=== PATIENT | female | born 1970 | race Caucasian/White ===

== ENCOUNTER 2016-11-14 18:00 | Emergency (ER) | payer OTHER ==
[2016-11-14 18:20] VITALS: BP 106/44
--- NOTE | 2016-11-14 18:58 | UC ---
Lower Extremity/Ankle HPI - HPI Summary HPI Summary: works in [employer] and injured left lateral ankle today at work---able to weight bear but pain is getting worse through out the day - History of Current Complaint Chief Complaint: UCLowerExtremity Stated Complaint: ANKLE INJURY WC Time Seen by Provider: 11/14/16 18:57 Hx Obtained From: Patient Hx Last Menstrual Period: October 07 ?: No Onset/Duration: Sudden Onset, Lasting Hours, Still Present, Worse Since - getting worse throughout the day Severity Initially: Mild Severity Currently: Moderate Pain Intensity: 4 Pain Scale Used: 0-10 Numeric Aggravating Factor(s): Standing, Ambulation Alleviating Factor(s): Rest, Elevation Able to Bear Weight: Yes Related History: Occupational Injury - Allergies/Home Medications Allergies/Adverse Reactions: Allergies Allergy/AdvReac Type Severity Reaction Status Date / Time No Known Allergies Allergy Verified 02/12/16 18:00 Home Medications: Home Medications Omeprazole CAP* [Prilosec CAP* 20 MG] 20 mg PO BEDTIME 11/14/16 [History Confirmed 11/14/16] PMH/Surg Hx/FS Hx/Imm Hx Previously Healthy: No Endocrine History: Diabetes Cardiovascular History: Hypertension GI/ History: Gastroesophageal Reflux Psychological History: Depression - Surgical History Surgical History: Yes Surgery Procedure, Year, and Place: Tubal Ligation 1999. LEFT KNEE SCOPING 2015 , RIGHT CARPAL TUNNEL - Family History Known Family History: Positive: Hypertension, Diabetes - Social History Occupation: Employed Full-time Lives: With Family Alcohol Use: Rare Alcohol Amount: 1 X EVERY 3-4 MONTHS Substance Use Type: None Smoking Status (MU): Former Smoker Type: Cigarettes Amount Used/How Often: 1/2 PPD When Did the Patient Quit Smoking/Using Tobacco: 02/2015 Review of Systems Constitutional: Negative Skin: Negative Eyes: Negative ENT: Negative Respiratory: Negative Cardiovascular: Negative Gastrointestinal: Negative Genitourinary: Negative Motor: Negative Neurovascular: Negative Musculoskeletal: Arthralgia - pain anterior to left lateral ankle Neurological: Negative Psychological: Negative Is Patient Immunocompromised?: No All Other Systems Reviewed And Are Negative: Yes Physical Exam Triage Information Reviewed: Yes Appearance: Well-Appearing, No Pain Distress, Well-Nourished Vital Signs: Initial Vital Signs Temp 99.4 F 11/14/16 18:14 Pulse 84 11/14/16 18:14 Resp 16 11/14/16 18:14 BP 106/44 11/14/16 18:14 Pulse Ox 97 11/14/16 18:14 Vital Signs Reviewed: Yes Eye Exam: Normal Eyes: Positive: Conjunctiva Clear ENT Exam: Normal ENT: Positive: Normal ENT inspection, Hearing grossly normal. Negative: Nasal congestion, Nasal drainage, Trismus, Muffled/hoarse voice Dental Exam: Normal Neck exam: Normal Neck: Positive: Supple, Nontender Respiratory Exam: Normal Respiratory: Positive: Chest non-tender, No respiratory distress, No accessory muscle use Cardiovascular Exam: Normal Cardiovascular: Positive: RRR, Pulses Normal, Brisk Capillary Refill Musculoskeletal Exam: Normal Musculoskeletal: Positive: Strength Intact, ROM Intact, No Edema Neurological Exam: Normal Neurological: Positive: Alert, Muscle Tone Normal Psychological Exam: Normal Skin Exam: Normal Diagnostics - Radiology No standard instances Xray Interpretation: No Acute Changes Radiology Interpretation Completed By: ED Physician Re-Evaluation - Re-Evaluation First Eval Change: Improved - Cam boot applied Lower Extremity Course/Dx - Course Course Of Treatment: rice, cam, ibuprofen follow with ortho, off work this week - Differential Dx/Diagnosis Differential Diagnosis/HQI/PQRI: Contusion, Fracture (Closed), Sprain, Strain Provider Diagnoses: Lateral left ankle sprain Discharge - Discharge Plan Condition: Stable Disposition: HOME Patient Education Materials: Ibuprofen (By mouth), RICE Therapy (ED), Ankle Strain (ED) Forms: *School Release Referrals: Sanjana Foster MD [Primary Care Provider] - Jeremiah Ward MD [Medical Doctor] - 3 Days
--- NOTE | 2016-11-14 19:40 | RAD ---
INDICATION: Left ankle injury. TECHNIQUE: 3 views of the left ankle were obtained. FINDINGS: Soft tissue swelling is noted along the anterolateral aspect of the ankle. No fracture is seen. Joint spaces appear maintained. IMPRESSION: SOFT TISSUE SWELLING, NO FRACTURE IS SEEN.
== END 2016-11-14 19:48 | disposition home or self-care (01) ==
LOC: UCEAST 18:00
DX: S93.402A Sprain of unspecified ligament of left ankle, initial encounter (principal); Y92.89 Other specified places as the place of occurrence of the external cause; X58.XXXA Exposure to other specified factors, initial encounter; E11.9 Type 2 diabetes mellitus without complications; I10 Essential (primary) hypertension; K21.9 Gastro-esophageal reflux disease without esophagitis; F32.9 Major depressive disorder, single episode, unspecified; Z87.891 Personal history of nicotine dependence
CPT/HCPCS: 99211; G0463

== ENCOUNTER 2017-02-05 00:02 | Emergency (ER) | payer BC ==
--- NOTE | 2017-02-05 00:47 | ED ---
GI/ HPI - HPI Summary HPI Summary: 46F presents with vaginal bleeding for past three days that has increased in amount today. She has history of fibriods that is seeing her obgyn about so has history of excessive vaginal bleeding. She states the bleeding has decreased since started hormone therapy 3 months ago. She states she layed down for a couple hours and got up and went to the bathroom and passed a couple large clots which has never happened before so she got concerned. She denies any lightheadedness or palpitations. She states she has mild cramping abdominal pain. She denies any dysuria or flank pain. She denies any history of anemia. She denies any nausea or vomiting. She denies any chance of . She also states she developed a migraine that is resolving with Excedrin. She states this is her typically migraine. - History of Current Complaint Chief Complaint: EDAbdPain Time Seen by Provider: 02/05/17 00:26 Stated Complaint: ABD PAIN Hx Last Menstrual Period: October 07 Pain Intensity: 3 - Allergy/Home Medications Allergies/Adverse Reactions: Allergies Allergy/AdvReac Type Severity Reaction Status Date / Time No Known Allergies Allergy Verified 02/05/17 00:07 PMH/Surg Hx/FS Hx/Imm Hx Endocrine/Hematology History: Reports: Hx Diabetes Denies: Hx Thyroid Disease Cardiovascular History: Reports: Hx Hypertension - PT. STATES CONTROLLED ON MEDS Denies: Hx Pacemaker/ICD Respiratory History: Denies: Hx Asthma, Hx Chronic Obstructive Pulmonary Disease (COPD) GI History: Reports: Hx Gastroesophageal Reflux Disease - WITH MOTRIN ONLY Denies: Hx Ulcer History: Reports: Other Problems/Disorders - Incontinence Denies: Hx Dialysis, Hx Renal Disease Musculoskeletal History: Reports: Hx Arthritis - BACK AND KNEES Sensory History: Reports: Hx Contacts or Glasses - READING Denies: Hx Hearing Aid Opthamlomology History: Reports: Hx Contacts or Glasses - READING Psychiatric History: Reports: Hx Anxiety Denies: Hx Panic Disorder - Cancer History Hx Chemotherapy: No Hx Radiation Therapy: No - Surgical History Surgery Procedure, Year, and Place: Tubal Ligation 1999. LEFT KNEE SCOPING 2016. RIGHT CARPAL TUNNEL Hx Anesthesia Reactions: No Infectious Disease History: No Infectious Disease History: Denies: Hx Hepatitis, Hx Human Immunodeficiency Virus (HIV), Traveled Outside the [place] in Last 30 Days - Family History Known Family History: Positive: Hypertension, Diabetes - Social History Alcohol Use: Rare Alcohol Amount: 1 X EVERY 3-4 MONTHS Substance Use Type: Reports: None Hx Tobacco Use: Yes Smoking Status (MU): Former Smoker Type: Cigarettes Amount Used/How Often: 1/2 PPD Review of Systems Negative: Fever Negative: Chest Pain Negative: Shortness Of Breath Positive: Other - vaginal bleeding Positive: Headache All Other Systems Reviewed And Are Negative: Yes Physical Exam Triage Information Reviewed: Yes Vital Signs On Initial Exam: Initial Vitals Temp Pulse Resp BP Pulse Ox 97.0 F 82 14 144/81 99 02/05/17 00:04 02/05/17 00:04 02/05/17 00:04 02/05/17 00:04 02/05/17 00:04 Vital Signs Reviewed: Yes Appearance: Positive: Well-Appearing, No Pain Distress, Well-Nourished Skin: Positive: Warm, Dry Head/Face: Positive: Normal Head/Face Inspection Eyes: Positive: Normal, EOMI, LIZETTE, Conjunctiva Clear ENT: Positive: Normal ENT inspection, Pharynx normal, TMs normal Respiratory/Lung Sounds: Positive: Clear to Auscultation, Breath Sounds Present Cardiovascular: Positive: Normal, RRR Abdomen Description: Positive: Nontender, Soft Bowel Sounds: Positive: Present Musculoskeletal: Positive: Normal Neurological: Positive: Sensory/Motor Intact, Alert, Oriented to Person Place, Time, CN Intact II-III Psychiatric: Positive: Normal - [place] Coma Scale Coma Scale Total: 15 Diagnostics - Vital Signs Vital Signs Temp Pulse Resp BP Pulse Ox 02/05/17 00:04 97.0 F 82 14 144/81 99 - Laboratory Lab Statement: Any lab studies that have been ordered have been reviewed, and results considered in the medical decision making process. GIGU Course/Dx - Course Course Of Treatment: 46F presents with vaginal bleeding for past three days that has increased in amount today. She has history of fibriods that is seeing her obgyn about so has history of excessive vaginal bleeding. She states the bleeding has decreased since started hormone therapy 3 months ago. She states she layed down for a couple hours and got up and went to the bathroom and passed a couple large clots which has never happened before so she got concerned. She denies any lightheadedness or palpitations. She states she has mild cramping abdominal pain. She denies any dysuria or flank pain. She denies any history of anemia. She denies any nausea or vomiting. She denies any chance of . She also states she developed a migraine that is resolving with Excedrin. She states this is her typically migraine. on exam normal neuro exam. nontender abdomen. normal vitals. reassured patient that clots are normal. discussed will not get any labs because no signs of blood loss. told to follow up with primary. patient understand and agrees with plan. - Diagnoses Differential Diagnoses - Female: Urinary Tract Infection, Other - dysfunctional uterine bleeding, fibroids Provider Diagnoses: Episode of heavy vaginal bleeding Discharge - Discharge Plan Condition: Good Disposition: HOME Patient Education Materials: Dysfunctional Uterine Bleeding (ED) Referrals: Sanjana Foster MD [Primary Care Provider] - Additional Instructions: Follow up with obgyn Return to ED if develop any signs of significant blood loss, or any new or worsening symptoms
[2017-02-05 00:50] VITALS: BP 142/81
== END 2017-02-05 01:00 | disposition home or self-care (01) ==
LOC: ED 00:02
DX: N93.9 Abnormal uterine and vaginal bleeding, unspecified (principal); R10.9 Unspecified abdominal pain; Z86.79 Personal history of other diseases of the circulatory system; R51 Headache; E11.9 Type 2 diabetes mellitus without complications; Z87.891 Personal history of nicotine dependence
CPT/HCPCS: 99282

== ENCOUNTER 2017-04-12 19:00 | Emergency (ER) | payer BC ==
--- OUTSIDE RECORDS SUMMARY | 2017-04-12 19:07 | XMS REPORT ---
:1970 External Reference #:[id number] Author Organization [facility] Address [address] [address] Phone [phone] Care Team Providers Name Role Phone Sanjana Foster MD Primary Care Physician Unavailable Payers Type Date Identification Numbers Payment Provider Subscriber Commercial Policy Number: [id number] [facility] Oriana Wilkinson PayID: [id number] [address] [place] [address] Workers Compensation Onset: 2012 Policy Number: State Insurance Oriana Wilkinson [id number] Fund [place]: [place] [address] [address] [place] [address] Workers Compensation Onset: 2011 Policy Number: State Insurance Oriana Wilkinson [id number] Fund PayID: [place] [address] [address] [place] [address] Workers Compensation Onset: 2016 PayID: [id number] Workers Oriana Wilkinson Compensation Problems Date Description Provider Status Onset: 03/17/2014 Essential hypertension Melchor Rendon M.D. Active Onset: 12/10/2015 Type 2 diabetes mellitus Prerna dAdison N.P. Active Onset: 03/17/2014 Anxiety Melchor Rendon M.D. Active Onset: 05/08/2014 Degeneration of lumbar intervertebral Hamzah Gonazlez M.D. Active disc Family History Date Family Member(s) Problem(s) Comments General Heart Disease General Diabetes General Breast Cancer General Hypertension : (age 68 Father due to Aspiration Years) pneumonia Father Hypertension Father Diabetes Father Heart Disease PTCA Father Gastroesophageal Reflux Disease (GERD) Mother Hypertension Mother Breast cancer (Age 48+/-) Age 68 Children 3 2 Sons 1 Daughter Siblings 3 3 Sisters - 1 with HTN and DM Social History Type Date Description Comments Marital Status Lives With Family Occupation [employer] ETOH Use Rarely consumes alcohol 1 - 2 per year Recreational Drug Use Denies Drug Use Smoking Patient is a former smoker Quit February 2015 Daily Caffeine Consumes on average 1 cup of regular coffee per day Exercise Type/Frequency Exercises sporadically Allergies, Adverse Reactions, Alerts Date Description Reaction Status Severity Comments 10/15/2013 NKDA active Medications Medication Date Status Form Strength Qnty SIG Indications Ordering Provider Blood Glucose 04/07 Active Kit W/Device 1unit test E11. Prerna Monitoring System /2017 s blood Varn, N.P. sugars once fasting and 2 hours after dinner meal Blood Glucose 04/07 Active Strips 100un test . Test its blood Varn, N.P. sugar fasting in in the morning and 2 hours after dinner meal Lancet Device 04/07 Active Misc 100un use when E11. its testing Varn, N.P. blood gluose bid Glipizide XL 12/08 Active Tablets ER 5mg 30tab one by 24HR s mouth Varn, N.P. every in the morning Omeprazole 02/[address] 20mg 30cap 1 by K202.28 s mouth Varn, N.P. every day Metformin HCL ER 12/09 Active Tablets ER 500mg 180ta Take 2 24HR bs Tablets Varn, N.P. By Mouth Every Day With Dinner Fluticasone 07/06 Active Suspension 50mcg/Act 16uni 2 sprays G56.01 ts each Varn, N.P. nostril daily as needed Oxybutynin 10/22 Active Tablets ER 10mg 30tab Take 1 N39.41 Prerna Chloride /2014 24HR s Tablet By Varn, N.P. Mouth Every Day Sertraline HCL 00/00 Active Tablets 100mg 90tab Take 1 Prerna /0000 s Tablet By Varn, N.P. Mouth Every Day Lisinopril 00/00 Active Tablets 30mg 90tab Take 1 Prerna /0000 s Tablet By Varn, N.P. Mouth Daily Coq-10 Active Capsules 150mg Unknown /0000 Biotin 00 Active Capsules 10mg Unknown /0000 Estroven + Energy Active Tablets Unknown Maximumstrength /0000 Tobramycin 03/30 Hx Solution 0.3% 5ml 1 drop in H10.89 each eye Varn, N.P. - every 06/07 4hours 7 days Augmentin 02/22 Hx Tablets 875-125mg 20tab one by J01.90 s mouth Varn, N.P. - every 12 03/04 hours ten days Tramadol 07/15 Hx Tablets 37.5-325m 30tab 1 -2 tabs Brittany Hydrochloride/Matt g s by mouth [place], taminophen - every 4-6 M.D. 08/18 hours needed pain Omeprazole 05/[address] 20mg 30cap 1 by K21.9 s mouth Varn, N.P. - every day 07/06 Amoxicillin/Clavu 02/25 Hx Tablets 875-125mg 20tab one J01. Prerna lanate Potassium s tablet by Varn, N.P. - mouth 03/07 twice daily for 10 days Fluconazole 02/25 Hx Tablets 150mg 3tabs one by J01.00 mouth Varn, N.P. - every 3 05/07 days 3 doses Fluticasone 02/25 Hx Suspension 50mcg/Act 16uni 2 sprays J01. Prerna Propionate ts each Varn, N.P. - nostril 03/11 daily needed Chantix 12/12 Hx Tablets 1mg 60tab 1 by F17.210 s mouth Varn, N.P. - once a Chantix Starting 10/22 Hx Tablets 0.5mg X 1tabs take as 305.1 Prerna 11 & directed Varn, N.P. - 1 mg X 42 (0.5 mg 12/05 by mouth daily x3 days, 0.5 mg twice a day x 4 days, then 1 mg twice a day up to three months) Cyclobenzaprine 06/23 Hx Tablets 10mg 45tab 1 by 724.2 Hamzah HCL /2014 s mouth [place], - twice a M.D. 07/19 day as needed spasm B6 Natural 03/17 Hx Tablets 100mg Rendon, - M.D. 04/03 Fish Oil 03/17 Hx Capsules 1000mg Rendon, - M.D. 05/07 Naproxen 03/17 Hx Tablets 500mg 30tab 1 tablet 724.5 Melchor s by mouth Rendon, - twice a M.D. 05/08 day foods as needed pain Cyclobenzaprine 03/17 Hx Tablets 5mg 30tab 1 tablet 724.5 Melchor HCL s by mouth Rendon, - three M.D. 05/08 times day as needed [id number]-[id number] Hx Chewtabs 1mg 1 PO Unknown /0000 Daily - 05/07 Tumeric Hx once a Unknown /0000 day - 11/11 Immunizations CPT Code Status Date Vaccine Reaction Lot # [id number] Given 12/08/2016 Influenza Virus Vaccine, No immediate [id number] Quadrivalent, Split, reaction..jh Preservative Free 16666 Given 11/12/2015 Influenza Virus Vaccine, no reaction noted ... [id number] [id number] Quadrivalent, Split, Preservative Free 82098 Given 07/07/2015 Tdap - [id number] Tetanus/Diptheria/Acellular Pertussis 43234 Given 12/12/2014 Influenza Virus Vaccine, [id number] Quadrivalent, Split, Preservative Free Vital Signs Date Vital Result Comment 04/12/2017 Height 69 inches 5'9" Weight 240.00 lb Heart Rate 67 /min BP Systolic 136 mmHg BP Diastolic 76 mmHg Respiratory Rate 19 /min Body Temperature 98.5 F Pain Level 10 BMI (Body Mass Index) 35.4 kg/m2 04/07/2017 Weight 238.00 lb Heart Rate 76 /min BP Systolic 116 mmHg BP Diastolic 72 mmHg O2 % BldC Oximetry 97 % 12/08/2016 Weight 230.75 lb Heart Rate 82 /min BP Systolic 108 mmHg BP Diastolic 68 mmHg Body Temperature 98.4 F O2 % BldC Oximetry 93 % 06/08/2016 Height 68.5 inches 5'8.50" Weight 223.00 lb Heart Rate 90 /min BP Systolic 104 mmHg BP Diastolic 62 mmHg Body Temperature 97.7 F O2 % BldC Oximetry 98 % BMI (Body Mass Index) 33.4 kg/m2 03/30/2016 Height 69 inches 5'9" Weight 225.00 lb Heart Rate 70 /min BP Systolic 104 mmHg BP Diastolic 62 mmHg Body Temperature 98.9 F O2 % BldC Oximetry 98 % BMI (Body Mass Index) 33.2 kg/m2 02/23/2016 Height 69 inches 5'9" Weight 221.00 lb Heart Rate 65 /min BP Systolic 100 mmHg BP Diastolic 62 mmHg Body Temperature 98.7 F O2 % BldC Oximetry 97 % BMI (Body Mass Index) 32.6 kg/m2 12/10/2015 Weight 224.00 lb Heart Rate 66 /min BP Systolic Sitting 120 mmHg BP Diastolic Sitting 76 mmHg Respiratory Rate 15 /min O2 % BldC Oximetry 98 % 11/12/2015 Height 69 inches 5'9" Weight 219.50 lb Heart Rate 75 /min BP Systolic 121 mmHg BP Diastolic 73 mmHg Body Temperature 99.0 F BMI (Body Mass Index) 32.4 kg/m2 08/20/2015 Height 69 inches 5'9" Weight 210.00 lb Heart Rate 60 /min Respiratory Rate 16 /min Pain Level 0 BMI (Body Mass Index) 31.0 kg/m2 07/30/2015 Height 69 inches 5'9" Weight 210.00 lb Body Temperature 98.1 F Pain Level 1 BMI (Body Mass Index) 31.0 kg/m2 07/16/2015 Height 69 inches 5'9" Weight 210.00 lb Heart Rate 60 /min BP Systolic Sitting 116 mmHg BP Diastolic Sitting 68 mmHg Respiratory Rate 16 /min Pain Level 5 BMI (Body Mass Index) 31.0 kg/m2 07/07/2015 Height 68 inches 5'8" Weight 223.00 lb Heart Rate 84 /min BP Systolic Sitting 122 mmHg BP Diastolic Sitting 76 mmHg Respiratory Rate 15 /min Body Temperature 98.3 F O2 % BldC Oximetry 98 % BMI (Body Mass Index) 33.9 kg/m2 05/08/2015 Height 68 inches 5'8" Weight 210.50 lb Heart Rate 68 /min BP Systolic Sitting 112 mmHg BP Diastolic Sitting 72 mmHg Body Temperature 99.0 F Pain Level 0 O2 % BldC Oximetry 97 % BMI (Body Mass Index) 32.0 kg/m2 02/25/2015 Heart Rate 85 /min BP Systolic Sitting 109 mmHg BP Diastolic Sitting 73 mmHg Body Temperature 98.9 F O2 % BldC Oximetry 96 % 02/06/2015 Weight 203.00 lb Heart Rate 74 /min BP Systolic Sitting 111 mmHg BP Diastolic Sitting 75 mmHg Body Temperature 98.2 F 12/12/2014 Weight 199.00 lb Heart Rate 63 /min BP Systolic Sitting 112 mmHg BP Diastolic Sitting 64 mmHg Body Temperature 98.4 F O2 % BldC Oximetry 98 % 10/22/2014 Weight 190.00 lb Heart Rate 65 /min BP Systolic Sitting 132 mmHg BP Diastolic Sitting 78 mmHg Body Temperature 98.4 F O2 % BldC Oximetry 97 % 07/24/2014 Height 69 inches 5'9" Weight 196.00 lb Heart Rate 84 /min BP Systolic Sitting 160 mmHg BP Diastolic Sitting 92 mmHg Pain Level 0 BMI (Body Mass Index) 28.9 kg/m2 06/23/2014 Height 69 inches 5'9" Weight 202.00 lb Heart Rate 78 /min BP Systolic Sitting 126 mmHg BP Diastolic Sitting 80 mmHg Pain Level 5 back BMI (Body Mass Index) 29.8 kg/m2 06/05/2014 Height 69 inches 5'9" Weight 205.00 lb Heart Rate 76 /min BP Systolic Sitting 122 mmHg BP Diastolic Sitting 78 mmHg Pain Level 2 back BMI (Body Mass Index) 30.3 kg/m2 05/08/2014 Height 69 inches 5'9" Weight 198.00 lb Heart Rate 76 /min BP Systolic Sitting 124 mmHg BP Diastolic Sitting 70 mmHg Pain Level 3 back BMI (Body Mass Index) 29.2 kg/m2 04/03/2014 Height 69 inches 5'9" Weight 194.38 lb Heart Rate 88 /min BP Systolic Sitting 118 mmHg BP Diastolic Sitting 60 mmHg Body Temperature 98.1 F O2 % BldC Oximetry 96 % BMI (Body Mass Index) 28.7 kg/m2 03/17/2014 Height 69 inches 5'9" Weight 194.50 lb Heart Rate 92 /min BP Systolic Sitting 124 mmHg BP Diastolic Sitting 72 mmHg Body Temperature 98.8 F BMI (Body Mass Index) 28.7 kg/m2 10/15/2013 Height 69 inches 5'9" Weight 190.00 lb Heart Rate 95 /min BP Systolic 121 mmHg BP Diastolic 77 mmHg BMI (Body Mass Index) 28.1 kg/m2 11/17/2011 Height 69 inches 5'9" Weight 186.00 lb Heart Rate 68 /min BP Systolic 137 mmHg BP Diastolic 90 mmHg BMI (Body Mass Index) 27.5 kg/m2 Results Test Date Test Result H/L Range Note Laboratory test 04/07/2017 Hemoglobin A1c 8.6 High 5-7 finding Laboratory test 12/08/2016 Hemoglobin A1c 7.3 High 5-7 finding Laboratory test 06/15/2016 Hemoglobin A1c 7.2 % High Less than 6.0 1 finding (Glyco HGB) Urine Microalbumin 06/15/2016 Urine Creatinine 138.01 mg/dL Random Ur Microalbumin (mg/L) < 15.0 mg/L Urine Microalbumin/Creatinine TNP ug/mg <31 2 CBC Auto Diff 06/15/2016 White Blood Count 6.0 10^3/uL 3.5-10.8 Red Blood Count 4.29 10^6/uL 4.0-5.4 Hemoglobin 12.4 g/dL 12.0-16.0 Hematocrit 37 % 35-47 Mean Corpuscular Volume 87 fL 80-97 Mean Corpuscular Hemoglobin 29 pg 27-31 Mean Corpuscular HGB Conc 33 g/dL 31-36 Red Cell Distribution Width 14 % 10.5-15 Platelet Count 292 10^3/uL 150-450 Mean Platelet Volume 9 um3 7.4-10.4 Abs Neutrophils 3.9 10^3/uL 1.5-7.7 Abs Lymphocytes 1.5 10^3/uL 1.0-4.8 Abs Monocytes 0.4 10^3/uL 0-0.8 Abs Eosinophils 0.1 10^3/uL 0-0.6 Abs Basophils 0.1 10^3/uL 0-0.2 Abs Nucleated RBC 0.01 10^3/uL Granulocyte % 65.2 % 38-83 Lymphocyte % 24.8 % Low 25-47 Monocyte % 7.1 % 1-9 Eosinophil % 1.9 % 0-6 Basophil % 1.0 % 0-2 Nucleated Red Blood Cells % 0.2 Laboratory test finding 02/23/2016 Hemoglobin A1c 6.5 5-7 Laboratory test finding 02/12/2016 CSF Glucose 75 mg/dL High 40-70 3, 4 CSF Protein 39 mg/dL 15-45 3, 5 CSF Culture & 02/12/2016 CSF Culture SEE RESULT BELOW 3, 6 Sensitivity Gram Stain Laboratory test 02/12/2016 Point of Care 152 mg/dL High 74-106 7 finding Glucose CSF Cell Count 02/12/2016 Body Fluid Source Cerebral Spinal 3 Body Fluid Appearance Clear 3 Body Fluid Color Colorless 3 CSF Tube # 4 3 Body Fluid Volume 1 mL 3 Body Fluid WBC 1 /mcL 3 Body Fluid RBC 1 /mcL 3 Body Fluid Comment (SEE NOTE) 3, 8 Body Fluid Lymph 100 % 3 Body Fluid Total Cells Counted 1 3 Fluid Reviewed By MD (SEE NOTE) 3, 9 Comp Metabolic Panel 02/12/2016 Sodium 137 mmol/L 133-145 Potassium 4.3 mmol/L 3.5-5.0 Chloride 102 mmol/L 101-111 Co2 Carbon Dioxide 27 mmol/L 22-32 Anion Gap 8 mmol/L 2-11 Glucose 155 mg/dL High 70-100 Blood Urea Nitrogen 17 mg/dL 6-24 Creatinine 0.89 mg/dL 0.51-0.95 BUN/Creatinine Ratio 19.1 8-20 Calcium 9.0 mg/dL 8.6-10.3 Total Protein 7.5 g/dL 6.4-8.9 Albumin 4.2 g/dL 3.2-5.2 Globulin 3.3 g/dL 2-4 Albumin/Globulin Ratio 1.3 1-3 Total Bilirubin 0.30 mg/dL 0.2-1.0 Alkaline Phosphatase 49 U/L 34-104 Alt 24 U/L 7-52 Ast 19 U/L 13-39 Egfr Non- 68.0 >60 Egfr 87.4 >60 10 CBC Auto Diff 02/12/2016 White Blood Count 12.3 10^3/uL High 3.5-10.8 Red Blood Count 4.04 10^6/uL 4.0-5.4 Hemoglobin 12.1 g/dL 12.0-16.0 Hematocrit 36 % 35-47 Mean Corpuscular Volume 89 fL 80-97 Mean Corpuscular Hemoglobin 30 pg 27-31 Mean Corpuscular HGB Conc 33 g/dL 31-36 Red Cell Distribution Width 13 % 10.5-15 Platelet Count 306 10^3/uL 150-450 Mean Platelet Volume 8 um3 7.4-10.4 Abs Neutrophils 10.5 10^3/uL High 1.5-7.7 Abs Lymphocytes 1.2 10^3/uL 1.0-4.8 Abs Monocytes 0.3 10^3/uL 0-0.8 Abs Eosinophils 0 10^3/uL 0-0.6 Abs Basophils 0.1 10^3/uL 0-0.2 Abs Nucleated RBC 0 10^3/uL Granulocyte % 86.0 % High 38-83 Lymphocyte % 10.1 % Low 25-47 Monocyte % 2.8 % 1-9 Eosinophil % 0.3 % 0-6 Basophil % 0.8 % 0-2 Nucleated Red Blood Cells % 0 Urinalysis Profile 02/12/2016 Urine Color Yellow Urine Appearance Cloudy Urine Specific [place] 1.026 1.010-1.030 Urine pH 7.0 5-9 Urine Urobilinogen Negative Negative Urine Ketones Negative Negative Urine Protein 1+(30 mg/dL) Negative Urine Leukocytes Trace Negative Urine Blood Negative Negative * * Negative 11 Urine Nitrite Negative Negative Urine Bilirubin Negative Negative Urine Glucose Negative Negative Urine White Blood Cell Trace(0-5/hpf) Absent Urine Red Blood Cell 2+(6-10/hpf) Absent Urine Bacteria Absent Absent Urine Squamous Epithelial Cell Present Absent Urine Culture And 02/12/2016 Urine Culture SEE RESULT 12 Sensitivities BELOW Laboratory test 12/07/2015 Hemoglobin A1c 7.0 % High Less than 13 finding (Glyco HGB) 6.0 Comp Metabolic Panel 11/19/2015 Sodium 136 mmol/L 133-145 Potassium 4.4 mmol/L 3.5-5.0 Chloride 105 mmol/L 101-111 Co2 Carbon Dioxide 25 mmol/L 22-32 Anion Gap 6 mmol/L 2-11 Glucose 118 mg/dL High 70-100 Blood Urea Nitrogen 19 mg/dL 6-24 Creatinine 0.84 mg/dL 0.51-0.95 BUN/Creatinine Ratio 22.6 High 8-20 Calcium 9.0 mg/dL 8.6-10.3 Total Protein 7.0 g/dL 6.4-8.9 Albumin 3.8 g/dL 3.2-5.2 Globulin 3.2 g/dL 2-4 Albumin/Globulin Ratio 1.2 1-3 Total Bilirubin 0.30 mg/dL 0.2-1.0 Alkaline Phosphatase 46 U/L 34-104 Alt 26 U/L 7-52 Ast 21 U/L 13-39 Egfr Non- 72.7 >60 Egfr 93.5 >60 14 Lipid Profile (Trig/Chol/HDL) 11/19/2015 Triglycerides 452 mg/dL 15 Cholesterol 190 mg/dL 16 HDL Cholesterol 29.8 mg/dL 17 LDL Cholesterol (SEE NOTE) mg/dL 18 Comp Metabolic Panel 10/08/2014 Sodium 137 mmol/L 133-145 Potassium 4.4 mmol/L 3.5-5.0 Chloride 107 mmol/L 101-111 Co2 Carbon Dioxide 24 mmol/L 22-32 Anion Gap 6 mmol/L 2-11 Glucose 102 mg/dL High 70-100 Blood Urea Nitrogen 19 mg/dL 6-24 Creatinine 0.77 mg/dL 0.51-0.95 BUN/Creatinine Ratio 24.7 High 8-20 Calcium 9.3 mg/dL 8.6-10.3 Total Protein 7.1 g/dL 6.4-8.9 Albumin 4.3 g/dL 3.2-5.2 Globulin 2.8 g/dL 2-4 Albumin/Globulin Ratio 1.5 1-3 Total Bilirubin 0.40 mg/dL 0.2-1.0 Alkaline Phosphatase 44 U/L 34-104 Alt 13 U/L 7-52 Ast 17 U/L 13-39 Egfr Non- 80.7 >60 Egfr 103.8 >60 19 Lipid Profile (Trig/Chol/HDL) 10/08/2014 Triglycerides 381 mg/dL 20 Cholesterol 185 mg/dL 21 HDL Cholesterol 36.1 mg/dL 22 LDL Cholesterol 73 mg/dL 23 CBC Auto Diff 03/18/2014 White Blood Count 7.3 10^3/uL 4.8-10.8 Red Blood Count 4.70 10^6/uL 4.0-5.4 Hemoglobin 14.6 g/dL 12.0-16.0 Hematocrit 44 % 35-47 Mean Corpuscular Volume 94 fL 80-97 Mean Corpuscular Hemoglobin 31 pg 27-31 Mean Corpuscular HGB Conc 33 g/dL 31-36 Red Cell Distribution Width 13 % 10.5-15 Platelet Count 264 10^3/uL 150-450 Mean Platelet Volume 9 um3 7.4-10.4 Abs Neutrophils 4.8 10^3/uL 1.5-7.7 Abs Lymphocytes 1.8 10^3/uL 1.0-4.8 Abs Monocytes 0.5 10^3/uL 0-0.8 Abs Eosinophils 0.2 10^3/uL 0-0.6 Abs Basophils 0 10^3/uL 0-0.2 Abs Nucleated RBC 0 10^3/uL Granulocyte % 65.5 % 38-83 Lymphocyte % 24.8 % Low 25-47 Monocyte % 7.0 % 1-9 Eosinophil % 2.1 % 0-6 Basophil % 0.6 % 0-2 Nucleated Red Blood Cells % 0 Lipid Profile (Trig/Chol/HDL) 03/18/2014 Triglycerides 227 mg/dL 24 Cholesterol 209 mg/dL 25 HDL Cholesterol 30.0 mg/dL 26 LDL Cholesterol 134 mg/dL 27 Laboratory test finding 03/18/2014 TSH (Thyroid Stimulating 1.49 IU/mL 0.34-5.60 Horm) Urinalysis Profile 03/18/2014 Urine Color Yellow Urine Appearance Clear Urine Specific [place] 1.011 1.010-1.030 Urine pH 6.0 5-9 Urine Urobilinogen Negative Negative Urine Ketones Negative Negative Urine Protein Negative Negative Urine Leukocytes Negative Negative Urine Blood Negative Negative Urine Nitrite Negative Negative Urine Bilirubin Negative Negative Urine Glucose Negative Negative Comp Metabolic Panel 03/18/2014 Sodium 135 mmol/L 133-145 Potassium 3.9 mmol/L 3.5-5.0 Chloride 101 mmol/L 101-111 Co2 Carbon Dioxide 29 mmol/L 22-32 Anion Gap 5 mmol/L 2-11 Glucose 99 mg/dL 70-100 Blood Urea Nitrogen 18 mg/dL 6-24 Creatinine 0.94 mg/dL 0.51-0.95 BUN/Creatinine Ratio 19.1 8-20 Calcium 9.4 mg/dL 8.6-10.3 Total Protein 7.5 g/dL 6.4-8.9 Albumin 4.5 g/dL 3.2-5.2 Globulin 3.0 g/dL 2-4 Albumin/Globulin Ratio 1.5 1-3 Total Bilirubin 0.60 mg/dL 0.2-1.0 Alkaline Phosphatase 44 U/L 34-104 Alt 12 U/L 7-52 Ast 17 U/L 13-39 Egfr Non- 64.1 >60 Egfr 82.4 >60 28 1 Therapeutic target for the treatment of diabetes Mellitus patients is <7% HBA1C, and in selective patients <6.0%.Please refer to [place] [employer] Diabetic care guidelines for further information. 2 Unable to calculate due to low microalbumin 3 Comment: Tube 2 4 Comment: Tube 2 5 Comment: Tube 2 6 SEE RESULT BELOW Name: ORIANA WILKINSON : [address]: Rm Graham MD Acct: [id number] Unit: [id number] AGE: 45 Location: ED Re02/12/16 SEX: F Status: DEP ER SPEC: [id number] OLIVIA: 02/12/[address]: Rm Graham MD REQ: [id number] RECD: 02/12/16 STATUS: MARIAH THAO DR: Prerna Addison [employer] _ SOURCE: CSF SPDESC: ORDERED: CSF Cult/GS COMMENTS: Comment: Tube 3 Procedure Result Reported Site CSF Gram Stain Final 02/13/16- 827 ML No Polys Observed No Organisms Seen Preparation By Cytospin Smear CSF Culture Final 02/16/16- 52 ML No Growth Day 4 * ML - MAIN LAB ([facility]) . END OF REPORT * ML=Testing performed at Main Lab DEPARTMENT OF PATHOLOGY, [address] [place] [address] Talib García M.D. Director [facility] # [id number] 7 Filemaker Developer: [id number] CHAR COLBY 8 Differential performed on concentrated smear. 9 No evidence of an acute inflammatory response. No evidence of malignancy. Reviewed by Irma Watters MD 10 Because ethnic data is not always readily available, this report includes an eGFR for both -Americans and non- Americans. The National Kidney Disease Education Program (NKDEP) does not endorse the use of the MDRD equation for patients that are not between the ages of 18 and 70, are , have extremes of body size, muscle mass, or nutritional status, or are non- or non-. According to the National Kidney Foundation, irrespective of diagnosis, the stage of the disease is based on the level of kidney function: Stage Description GFR(mL/min/1.73 m(2)) 1 Kidney damage with normal or decreased GFR 90 2 Kidney damage with mild decrease in GFR 60-89 3 Moderate decrease in GFR 30-59 4 Severe decrease in GFR 15-29 5 Kidney failure <15 (or dialysis) 11 *Ascorbic acid is present which may interfere with detection of blood. 12 SEE RESULT BELOW Name: ORIANA WILKINSON : [address]: Rm Graham MD Acct: [id number] Unit: [id number] AGE: 45 Location: ED Re02/12/16 SEX: F Status: DEP ER SPEC: [id number] OLIVIA: 02/12/16-[address]: Rm Graham MD REQ: [id number] RECD: 02/12/16 STATUS: MARIAH THAO DR: Prerna Addison [employer] _ SOURCE: URINE SPDESC: ORDERED: Urine Culture Procedure Result Reported Site Urine Culture Final 02/14/16- 1210 ML No growth of clinically significant organisms * ML - MAIN LAB ([facility]) . END OF REPORT * ML=Testing performed at Main Lab DEPARTMENT OF PATHOLOGY, [address] [place] [address] Talib García M.D. Director [facility] # [id number] 13 Therapeutic target for the treatment of diabetes Mellitus patients is <7% HBA1C, and in selective patients <6.0%.Please refer to [place] [employer] Diabetic care guidelines for further information. 14 Because ethnic data is not always readily available, this report includes an eGFR for both -Americans and non- Americans. The National Kidney Disease Education Program (NKDEP) does not endorse the use of the MDRD equation for patients that are not between the ages of 18 and 70, are , have extremes of body size, muscle mass, or nutritional status, or are non- or non-. According to the National Kidney Foundation, irrespective of diagnosis, the stage of the disease is based on the level of kidney function: Stage Description GFR(mL/min/1.73 m(2)) 1 Kidney damage with normal or decreased GFR 90 2 Kidney damage with mild decrease in GFR 60-89 3 Moderate decrease in GFR 30-59 4 Severe decrease in GFR 15-29 5 Kidney failure <15 (or dialysis) 15 Desirable <150 Borderline high 150-199 High 200-499 Very High >500 16 Desirable <200 Borderline high 200-239 High >239 17 Low <40 Desirable: 40-60 High: >60 18 Unable to calculate LDL as triglyceride is > 400 19 Because ethnic data is not always readily available, this report includes an eGFR for both -Americans and non- Americans. The National Kidney Disease Education Program (NKDEP) does not endorse the use of the MDRD equation for patients that are not between the ages of 18 and 70, are , have extremes of body size, muscle mass, or nutritional status, or are non- or non-. According to the National Kidney Foundation, irrespective of diagnosis, the stage of the disease is based on the level of kidney function: Stage Description GFR(mL/min/1.73 m(2)) 1 Kidney damage with normal or decreased GFR 90 2 Kidney damage with mild decrease in GFR 60-89 3 Moderate decrease in GFR 30-59 4 Severe decrease in GFR 15-29 5 Kidney failure <15 (or dialysis) 20 Desirable <150 Borderline high 150-199 High 200-499 Very High >500 21 Desirable <200 Borderline high 200-239 High >239 22 Low <40 Desirable: 40-60 High: >60 23 Desirable: <100 mg/dL Near Optimal: 100-129 mg/dL Borderline High: 130-159 mg/dL High: 160-189 mg/dL Very High: >189 mg/dL 24 Desirable <150 Borderline high 150-199 High 200-499 Very High >500 25 Desirable <200 Borderline high 200-239 High >239 26 Low <40 Desirable: 40-60 High: >60 27 Desirable <100 Near Optimal 100-129 Borderline high 130-159 High 160-189 Very High >189 28 Because ethnic data is not always readily available, this report includes an eGFR for both -Americans and non- Americans. The National Kidney Disease Education Program (NKDEP) does not endorse the use of the MDRD equation for patients that are not between the ages of 18 and 70, are , have extremes of body size, muscle mass, or nutritional status, or are non- or non-. According to the National Kidney Foundation, irrespective of diagnosis, the stage of the disease is based on the level of kidney function: Stage Description GFR(mL/min/1.73 m(2)) 1 Kidney damage with normal or decreased GFR 90 2 Kidney damage with mild decrease in GFR 60-89 3 Moderate decrease in GFR 30-59 4 Severe decrease in GFR 15-29 5 Kidney failure <15 (or dialysis) Procedures Date CPT Code Description Status 08/04/2016 Diabetic Retinal Eye Exam Completed 07/08/2016 Mammogram Completed 07/21/2015 26752 Carpal Tunnel Release Completed 07/21/2015 11706 Carpal Tunnel Release Completed 10/20/2014 Mammogram Completed 11/17/2011 83395 Rad Shoulder Comp, Min. 2 Views Completed Encounters Type Date Location Provider CPT E/M Dx Office Visit 04/07/2017 10:40a [facility] Prerna [place]ison[place] N.P. [address]204 E11.9 - [place] I10 M79.645 R14.0 Office Visit 12/08/2016 10:40a [facility] - Prerna Addison, N.P. [address] I10 [place] E11.9 Z23 Office Visit 06/08/2016 10:40a [facility] Prerna Addison, N.P. [address]995 Z00.01 - [place] I10 E11.9 F41.9 Z12.31 K21.9 N92.4 Office Visit 03/30/2016 2:40p [facility] Prerna Addison, N.P. 09101 H10.89 - [place] J06.9 R32 Office Visit 02/23/2016 1:00p [facility] Prerna Addison, N.P. 75522 E11.9 - [place] I10 J01.90 K21.9 Office Visit 12/10/2015 8:40a [facility] Prerna Addison, N.P. 54895 E11.9 - [place] Office Visit 11/12/2015 11:40a [facility] Prerna Addison, N.P. 26584 Z23 - [place] I10 K21.9 Office Visit 07/16/2015 9:45a [facility] Brittany Hatfield, 23902 G56.02 Of [place]j [place] G56.01 Office Visit 07/07/2015 2:20p [facility] Prerna Addison, N.P. 78770 G56.01 - [place] G56.02 Z23 Office Visit 05/08/2015 1:40p [facility] Prerna Addison, N.P. 06843 Z00.00 - [place] I10 E78.0 F41.9 K21.9 Office Visit 02/25/2015 4:20p [facility] Prerna Addison N.P. 51904 J01.00 Medicine - [place] Office Visit 02/06/2015 11:40a [facility] Marbin Segal, SERGEANT OF OFFICERS 36753 S83.92xA [facility] - [place] Office Visit 12/12/2014 10:00a [facility] Prerna Addison[facility] N.P. 09652 Z23 [facility] F[facility].210 I10 N39.41 Office Visit 10/22/2014 10:00a [facility] Prerna Addison N.P. 84979 788.31 - [place] 401.9 272.4 305.1 454.9 Office Visit 07/24/2014 3:00p [facility] Hamzah Gonzalez 95328 722.52 Of [facility] M.DCarlota Office Visit 06/23/2014 3:00p [facility] Hamzah Gonzalez 24958 724.2 Of [facility] M.[place] Office Visit 06/05/2014 9:30a [facility] Hamzah Gonzalez 98089 722.52 Of [facility] [place] Office Visit 05/08/2014 9:30a [facility] Hamzah Gonzalez 20223 722.52 Of [facility] [place] 722.10 Office Visit 04/03/2014 8:40a [facility] Melchor Rendon M.D. 64405 401.9 - [address] 272.4 300.00 724.5 V16.3 305.1 278.00 401.1 724.2 Office Visit 03/17/2014 3:00p [facility] Melchor Rendon M.D. 30809 401.9 - [place] 300.00 724.5 V16.3 305.1 278.00 401.1 724.2 Office Visit 10/15/2013 1:00p [facility] Sergio Isidro M.D. 09057 844.0 C.M.A. 844.0 Office Visit 07/05/2012 10:45a [facility] M.D. 54671 844.0 C.M.A. Office Visit 06/14/2012 10:30a [facility] Of Liagenie CalhounEMILIANO pro 04616 844.0 C.M.A. Office Visit 05/22/2012 2:00p [facility] Sergio Isidro M.D. 73523 844.0 C.M.A. Office Visit 01/04/2012 10:30a [facility] Of Isrrael Nguyễnino, 27578 840.9 C.M.A. M.D. Office Visit 12/07/2011 11:30a [facility] Isrrael Younger, 19288 840.9 C.M.A. M.D. Office Visit 11/17/2011 2:15p [facility] Isrrael Nguyễnino, 82478 840.9 C.M.A. M.D. Plan of Care Future Appointment(s):04/21/2017 1:00 pm - Prerna Addison N.P. at [facility] - Ggdteyzgc26/24/2018 10:40 am - Prerna Addison N.P. at [facility] - Bwetqetic40/21/2018 - Vanessa Hair, [facility]-CS60.022A Contusion of left index finger w/o damage to nail, initFollow up:Follow up: As needed
--- OUTSIDE RECORDS SUMMARY | 2017-04-12 19:08 | XMS REPORT ---
:1970 External Reference #:[id number] Author Organization [facility] Address [address] [address] Phone [phone] Care Team Providers Name Role Phone Sanjana Foster MD Primary Care Physician Unavailable Payers Type Date Identification Numbers Payment Provider Subscriber Commercial Policy Number: [id number] [facility] Oriana Wilkinson PayID: [id number] [address] [place] [address] Workers Compensation Onset: 2012 Policy Number: State Insurance Oriana Wilkinson [id number] Fund PayID: [id number] [address] [address] [place] [address] Workers Compensation Onset: 2011 Policy Number: State Insurance Oriana Wilkinson [id number] Fund PayID: [id number] [address] [address] [place] [address] Workers Compensation Onset: 2016 PayID: [id number] Workers Oriana Wilkinson Compensation Problems Date Description Provider Status Onset: 03/17/2014 Essential hypertension Melchor Rendon M.D. Active Onset: 12/10/2015 Type 2 diabetes mellitus Prerna Addison N.P. Active Onset: 03/17/2014 Anxiety Melchor Rendon M.D. 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 every day Sertraline HCL 00/ Active Tablets 100mg 90tab Take 1 Prerna /0000 s Tablet By Varn, N.P. Mouth Every Day Lisinopril 00/00 Active Tablets 30mg 90tab Take 1 Prerna /0000 s Tablet By Varn, N.P. Mouth Daily Coq-10 00/00 Active Capsules 150mg Unknown /0000 Biotin 00 [...] by 724.2 Hamzah HCL /2014 s mouth Lisa, - twice a M.D. 07/19 day as [...] three M.D. 05/08 times day as needed L43-Ehuqsm Hx Chewtabs 1mg 1 PO Unknown /0000 Daily - 05/07 Tumeric Hx once a Unknown /0000 day - 11/11 Immunizations CPT Code Status Date Vaccine Reaction Lot # [id number] Given 12/08/2016 Influenza Virus Vaccine, No immediate [id number] Quadrivalent, Split, reaction..jh Preservative Free 02319 Given 11/12/2015 Influenza Virus Vaccine, no reaction noted ... hh [id number] Quadrivalent, Split, Preservative Free 64999 Given 07/07/2015 Tdap - [id number] Tetanus/Diptheria/Acellular Pertussis 96557 Given 12/12/2014 Influenza Virus Vaccine, [id number] Quadrivalent, Split, Preservative Free Vital Signs Date Vital Result Comment 04/07/2017 Weight 238.00 lb Heart Rate 76 [...] Test Result H/L Range Note Laboratory test finding 04/07/2017 Hemoglobin A1c 8.6 High 5-7 Laboratory test finding 12/08/2016 Hemoglobin A1c 7.3 High 5-7 CBC Auto Diff 06/15/2016 White Blood Count [...] Red Blood Cells % 0.2 Laboratory test 06/15/2016 Hemoglobin A1c 7.2 % High Less than 6.0 1 finding (Glyco HGB) Urine Microalbumin 06/15/2016 Urine Creatinine 138.01 mg/dL Random Ur Microalbumin (mg/L) < 15.0 mg/L Urine Microalbumin/Creatinine TNP ug/mg <31 2 Laboratory test finding 02/23/2016 Hemoglobin A1c 6.5 5-7 Laboratory test finding 02/12/2016 CSF Glucose 75 mg/dL High 40-70 3, 4 CSF Protein 39 mg/dL 15-45 3, 5 Laboratory test finding 02/12/2016 Point of Care 152 mg/dL High 74-106 6 Glucose Urine Culture And 02/12/2016 Urine Culture SEE RESULT BELOW 7 Sensitivities CSF Culture & 02/12/2016 CSF Culture SEE RESULT BELOW 3, 8 Sensitivity Gram Stain CSF Cell Count 02/12/2016 Body Fluid Source Cerebral Spinal 3 Body Fluid Appearance Clear 3 Body Fluid Color Colorless 3 CSF Tube # 4 3 Body Fluid Volume 1 mL 3 Body Fluid WBC 1 /mcL 3 Body Fluid RBC 1 /mcL 3 Body Fluid Comment (SEE NOTE) 3, 9 Body Fluid Lymph 100 % 3 Body Fluid Total Cells Counted 1 3 Fluid Reviewed By MD (SEE NOTE) 3, 10 Comp Metabolic Panel 02/12/2016 Sodium 137 mmol/L [...] Egfr Non- 68.0 >60 Egfr 87.4 >60 11 Urinalysis Profile 02/12/2016 Urine Color Yellow Urine Appearance Cloudy Urine Specific [place] 1.026 1.010-1.030 Urine pH 7.0 5-9 Urine Urobilinogen Negative Negative Urine Ketones Negative Negative Urine Protein 1+(30 mg/dL) Negative Urine Leukocytes Trace Negative Urine Blood Negative Negative * * Negative 12 Urine Nitrite Negative Negative Urine Bilirubin Negative Negative Urine Glucose Negative Negative Urine White Blood Cell Trace(0-5/hpf) Absent Urine Red Blood Cell 2+(6-10/hpf) Absent Urine Bacteria Absent Absent Urine Squamous Epithelial Cell Present Absent CBC Auto Diff 02/12/2016 White Blood Count [...] 0-2 Nucleated Red Blood Cells % 0 Laboratory test 12/07/2015 Hemoglobin A1c (Glyco 7.0 % High Less than 6.0 13 finding HGB) Lipid Profile 11/19/2015 Triglycerides 452 mg/dL 14 (Trig/Chol/HDL) Cholesterol 190 mg/dL 15 HDL Cholesterol 29.8 mg/dL 16 LDL Cholesterol (SEE NOTE) mg/dL 17 Comp Metabolic Panel 11/19/2015 Sodium 136 mmol/L [...] Egfr Non- 72.7 >60 Egfr 93.5 >60 18 Comp Metabolic Panel 10/08/2014 Sodium 137 [...] mg/dL 22 LDL Cholesterol 73 mg/dL 23 Comp Metabolic Panel 03/18/2014 Sodium 135 mmol/L [...] Egfr Non- 64.1 >60 Egfr 82.4 >60 24 Urinalysis Profile 03/18/2014 Urine Color Yellow Urine Appearance Clear Urine Specific [place] 1.011 1.010-1.030 Urine pH 6.0 5-9 Urine Urobilinogen Negative Negative Urine Ketones Negative Negative Urine Protein Negative Negative Urine Leukocytes Negative Negative Urine Blood Negative Negative Urine Nitrite Negative Negative Urine Bilirubin Negative Negative Urine Glucose Negative Negative Laboratory test finding 03/18/2014 TSH (Thyroid Stimulating 1.49 IU/mL 0.34-5.60 Horm) CBC Auto Diff 03/18/2014 White Blood Count [...] Lipid Profile (Trig/Chol/HDL) 03/18/2014 Triglycerides 227 mg/dL 25 Cholesterol 209 mg/dL 26 HDL Cholesterol 30.0 mg/dL 27 LDL Cholesterol 134 mg/dL 28 1 Therapeutic target for the treatment of diabetes Mellitus patients is <7% HBA1C, and in selective patients <6.0%.Please refer to [place] [employer] Diabetic care guidelines for further information. 2 Unable to calculate due to low microalbumin 3 Comment: Tube 2 4 Comment: Tube 2 5 Comment: Tube 2 6 Ceramics Engineer: [id number] CHAR COLBY 7 SEE RESULT BELOW Name: ORIANA WILKINSON : [address]: Rm Graham MD Acct: [id number] Unit: [id number] AGE: 45 Location: ED Re02/12/16 SEX: F Status: DEP ER SPEC: [id number] OLIVIA: 02/12/16-[address]: Rm Graham MD REQ: [id number] RECD: 02/12/16 STATUS: MARIAH THAO DR: Prerna Addison APPOINTMENT COORDINATOR _ SOURCE: URINE SPDESC: ORDERED: Urine Culture Procedure Result Reported Site Urine Culture Final 02/14/16- 1210 ML No growth of clinically significant organisms * ML - MAIN LAB ([facility]) . END OF REPORT * ML=Testing performed at Main Lab DEPARTMENT OF PATHOLOGY, [address] [place] [address] Talib García M.D. Director [facility] # [id number] 8 SEE RESULT BELOW Name: ORIANA WILKINSON Corina : [address]: Rm Graham MD Acct: [id number] Unit: [id number] AGE: 45 Location: ED Re02/12/16 SEX: F Status: DEP ER SPEC: [id number] OLIVIA: 02/12/16-[address]: Rm Graham MD REQ: [id number] RECD: 02/12/16 STATUS: COMP OTHR DR: Prerna Addison APPOINTMENT COORDINATOR _ SOURCE: CSF SPDESC: ORDERED: CSF Cult/GS COMMENTS: Comment: Tube 3 Procedure Result Reported Site CSF Gram Stain Final 02/13/16- 827 ML No Polys Observed No Organisms Seen Preparation By Cytospin Smear CSF Culture Final 02/16/16- 851 ML No Growth Day 4 * ML - MAIN LAB ([facility]) . END OF REPORT * ML=Testing performed at Main Lab DEPARTMENT OF PATHOLOGY, [address] [place] [address] Talib García M.D. Director [facility] # [id number] 9 Differential performed on concentrated smear. 10 No evidence of an acute inflammatory response. No evidence of malignancy. Reviewed by Irma Watters MD 11 Because ethnic data is not always readily [...] 15-29 5 Kidney failure <15 (or dialysis) 12 *Ascorbic acid is present which may interfere with detection of blood. 13 Therapeutic target for the treatment of diabetes Mellitus patients is <7% HBA1C, and in selective patients <6.0%.Please refer to [place] [employer] Diabetic care guidelines for further information. 14 Desirable <150 Borderline high 150-199 High 200-499 Very High >500 15 Desirable <200 Borderline high 200-239 High >239 16 Low <40 Desirable: 40-60 High: >60 17 Unable to calculate LDL as triglyceride is > 400 18 Because ethnic data is not always readily [...] 15-29 5 Kidney failure <15 (or dialysis) 19 Because ethnic data is not always [...] 160-189 mg/dL Very High: >189 mg/dL 24 Because ethnic data is not always readily [...] 15-29 5 Kidney failure <15 (or dialysis) 25 Desirable <150 Borderline high 150-199 High 200-499 Very High >500 26 Desirable <200 Borderline high 200-239 High >239 27 Low <40 Desirable: 40-60 High: >60 28 Desirable <100 Near Optimal 100-129 Borderline high 130-159 High 160-189 Very High >189 Procedures Date CPT Code Description Status 08/04/2016 Diabetic Retinal Eye Exam Completed 07/08/2016 Mammogram Completed 07/21/2015 72492 Carpal Tunnel Release Completed 07/21/2015 98669 Carpal Tunnel Release Completed 10/20/2014 Mammogram Completed 11/17/2011 10313 Rad Shoulder Comp, Min. 2 Views Completed Encounters Type Date Location Provider CPT E/M Dx Office Visit 12/08/2016 10:40a [facility] Medicine Prerna Addison, N.P. 49830 I10 - [place] E11.9 Z23 Office Visit 06/08/2016 10:40a [facility] Prerna Addison, N.P. 20729 Z00.01 - [place] I10 E11.9 F41.9 Z12.31 K21.9 N92.4 Office Visit 03/30/2016 2:40p [facility] Prerna Addison N.P. 58122 H10.89 - [place] J06.9 R32 Office Visit 02/23/2016 1:00p [facility] Prerna Addison, N.P. 62395 E11.9 - [place] I10 J01.90 K21.9 Office Visit 12/10/2015 8:40a [facility] Medicine Prerna Addison, N.P. 07807 E11.9 - [place] Office Visit 11/12/2015 11:40a [facility] Medicine Prerna Addison, N.P. 00560 Z23 - [place] I10 K21.9 Office Visit 07/16/2015 9:45a [facility]opedic Services Brittany Hatfield, 52955 G56.02 Of Jj Pino G56.01 Office Visit 07/07/2015 2:20p [facility] Medicine Prerna Addison, N.P. 86317 G56.01 - [place] G56.02 Z23 Office Visit 05/08/2015 1:40p [facility] Medicine Prerna Addison, N.P. 11176 Z00.00 - [place] I10 E78.0 F41.9 K21.9 Office Visit 02/25/2015 4:20p [facility] Internal Prerna Addison, N.P. 68721 J01.00 Medicine - [place] Office Visit 02/06/2015 11:40a [facility] Internal Marbin Segal, APPOINTMENT COORDINATOR 81559 S83.92xA Medicine - [place] Office Visit 12/12/2014 10:00a [facility] Internal Prerna Addison, N.P. 63729 Z23 Medicine - [place] F17.210 I10 N39.41 Office Visit 10/22/2014 10:00a [facility] Medicine Prerna Addison, N.P. 52115 788.31 - [place] 401.9 272.4 305.1 454.9 Office Visit 07/24/2014 3:00p [facility] Services Hamzah Gonzalez 05641 722.52 Of [facility] M.D. Office Visit 06/23/2014 3:00p [facility] Services Hamzah Gonzalez 63266 724.2 Of [facility] M.D. Office Visit 06/05/2014 9:30a [facility] Services Hamzah Gonzalez 00195 722.52 Of [facility] M.DCarlota Office Visit 05/08/2014 9:30a [facility] Services Hamzah Gonzalez 94929 722.52 Of [facility] M.DCarlota 722.10 Office Visit 04/03/2014 8:40a [facility] Medicine Melchor Rendon M.D. 14603 401.9 - [address] 272.4 300.00 724.5 V16.3 305.1 278.00 401.1 724.2 Office Visit 03/17/2014 3:00p [facility] Melchor Rendon M.D. 65523 401.9 - [place] 300.00 724.5 V16.3 305.1 278.00 401.1 724.2 Office Visit 10/15/2013 1:00p [facility] Of Sergio Isidro M.D. 85753 844.0 C.M.A. 844.0 Office Visit 07/05/2012 10:45a [facility] S[facility] Isidro M.D. 81463 844.0 C.M.A. Office Visit 06/14/2012 10:30a [facility] Of EMILIANO Cardona 45705 844.0 C.M.A. Office Visit 05/22/2012 2:00p [facility] Sergio Isidro M.D. 55936 844.0 C.M.A. Office Visit 01/04/2012 10:30a [facility] Of Isrrael Younger, 47134 840.9 C.M.A. M.D. Office Visit 12/07/2011 11:30a [facility] Isrrael Younger, 45023 840.9 C.M.A. M.D. Office Visit 11/17/2011 2:15p [facility] Isrrael Younger, 41544 840.9 C.M.A. M.D. Plan of Care Future Appointment(s):04/21/2017 1:00 pm - Prerna Addison N.PCarlota at [facility] - Vsumjvcyb40/24/2018 10:40 am - Prerna Addison N.P. at [facility] - Ikfqightb57/16/2018 - Prerna Addison NHeathE11.9 Type 2 diabetes mellitus without complicationsNew Medication:Blood Glucose Monitoring System W/ DeviceBlood Glucose TestLancet DeviceComments:Your diabetes is not in good control. I want you to restart the Glipizide. Take 1 before you go to work. I have ordered you your own glucose monitor.For your nutrition I want you to get 40 Gms of carbohydrates in each meal and 30 Gms of carbohydrates in for snacks.I want you to check your fasting blood sugars.Follow up:F/U in 2 ligvtL23 Essential (primary) hypertensionComments:For your high blood pressure: Continue with your current medication. I would like you to monitor your blood pressure at home. If your readings at home are consistently higher than 140/90, please call the office.M79.645 Pain in left finger(s)Comments:To further evaluate your finger pain I am referring you to a hand specialist, Dr Skelton.Referral:Jeremiah Skelton MD, Surgery,Hand ZujcgxrxcbP63.0 Abdominal distension (gaseous)New Xrays:US Gall BladderComments:I an concerned you are having issues with your gallbladder. I have ordered an ultrasound to screen for stones. I will contact you with your results.
--- NOTE | 2017-04-12 20:43 | UC ---
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 FELT IT POP. HAS H/O ACL INJURY AND ARTHROSCOPIC PROCEDURE 02/2015. HAS PAIN WITH AMBULATING BUT DENIES ANY WEAKNESS OR FEELINGS OF INSTABILITY. HAS SOME CLICKING AND POPPING. - History of Current Complaint Chief Complaint: UCLowerExtremity Stated Complaint: KNEE INJURY Time Seen by Provider: 04/12/17 20:26 Hx Obtained From: Patient Hx Last Menstrual Period: NOW Onset/Duration: Sudden Onset, Lasting Days - 1 DAY, Still Present Severity Initially: Moderate Severity Currently: Moderate Pain Intensity: 6 Pain Scale Used: 0-10 Numeric Character: Sharp Aggravating Factor(s): Movement Alleviating Factor(s): Rest Associated Signs And Symptoms: Positive: Negative Able to Bear Weight: Yes - Allergies/Home Medications Allergies/Adverse Reactions: Allergies Allergy/AdvReac Type Severity Reaction Status Date / Time No Known Allergies Allergy Verified 04/12/17 19:14 Home Medications: Home Medications Ibuprofen TAB* [Advil TAB*] 400 mg PO ONCE PRN 04/12/17 [History Confirmed 04/12] Med For Diabetes* 04/12/17 [History] PMH/Surg Hx/FS Hx/Imm Hx Endocrine History: Diabetes Cardiovascular History: Hypertension GI/ History: Gastroesophageal Reflux Psychological History: Anxiety - Surgical History Surgical History: Yes Surgery Procedure, Year, and Place: Tubal Ligation 1999. LEFT KNEE SCOPING 2015. RIGHT CARPAL TUNNEL - Family History Known Family History: Positive: Hypertension, Diabetes - Social History Alcohol Use: None Alcohol Amount: 1 X EVERY 3-4 MONTHS Substance Use Type: None Smoking Status (MU): Former Smoker Type: Cigarettes Amount Used/How Often: 1/2 PPD When Did the Patient Quit Smoking/Using Tobacco: 02/2015 Review of Systems Constitutional: Negative Skin: Negative Respiratory: Negative Cardiovascular: Negative Gastrointestinal: Negative Musculoskeletal: Arthralgia All Other Systems Reviewed And Are Negative: Yes Physical Exam Triage Information Reviewed: Yes Appearance: Well-Appearing, No Pain Distress, Well-Nourished Vital Signs: Initial Vital Signs Temp 96.7 F 04/12/17 19:07 Pulse 99 04/12/17 19:07 Resp 16 04/12/17 19:07 BP 123/75 04/12/17 19:07 Pulse Ox 98 04/12/17 19:07 Vital Signs Reviewed: Yes Eyes: Positive: Conjunctiva Clear ENT: Positive: Hearing grossly normal Neck: Positive: Supple Respiratory: Positive: No respiratory distress, No accessory muscle use Cardiovascular: Positive: Pulses Normal Abdomen Description: Positive: Soft Musculoskeletal: Positive: ROM Intact, No Edema, Other: - LEFT KNEE: LATERAL JOINT LINE TENDERNESS. NO TENDERNESS OVER ANY BONY PROMINENCES. MCL AND LCL INTACT TO STRESS TESTING. NEG LACHMANS. NEG DRAWERS SIGNS. POS MCMURRAYS LATERALLY. NEG PATELLAR APPREHENSION TEST. NO TENDERNESS OVER PATELLAR LIGAMENT OR QUADRICEPS TENDON. Neurological: Positive: Alert Psychological: Positive: Age Appropriate Behavior Skin: Negative: rashes Knee Pain Course/Dx - Differential Dx/Diagnosis Provider Diagnoses: LEFT KNEE SPRAIN Discharge - Discharge Plan Condition: Stable Disposition: HOME Patient Education Materials: Knee Sprain (ED) Forms: *Work Release Referrals: Sanjana Foster MD [Primary Care Provider] - If Needed Additional Instructions: REST, ICE, COMPRESS, ELEVATE. USE YOUR CRUTCHES NEEDED FOR MOBILITY. OTC NSAIDS NEEDED FOR DISCOMFORT. IF YOU ARE NOT IMPROVING SIGNIFICANTLY OVER THE NEXT 3-5 DAYS CONSIDER IMAGING. FOLLOW-UP WITH YOUR PCP OR YOUR ORTHOPEDIST IN [place]. IBUPROFEN MAX DOSE: 600MG (3 TABS) EVERY 6 HRS OR 800MG (4 TABS) EVERY 8 HRS OR NAPROXEN MAX DOSE: 440MG (2 TABS) EVERY 12 HRS TYLENOL MAX DOSE: 1000MG (2 EXTRA STRENGTH TABS) EVERY 8 HRS OR 650MG (2 REGULAR TABS) EVERY 6 HRS
[2017-04-12 21:11] VITALS: BP 120/76
== END 2017-04-12 20:55 | disposition home or self-care (01) ==
LOC: UCEAST 19:00
DX: S83.92XA Sprain of unspecified site of left knee, initial encounter (principal); X50.0XXA Overexertion from strenuous movement or load, initial encounter; Y93.89 Activity, other specified; Y92.9 Unspecified place or not applicable; E11.9 Type 2 diabetes mellitus without complications; I10 Essential (primary) hypertension; Z87.891 Personal history of nicotine dependence
CPT/HCPCS: 99212; G0463

== ENCOUNTER 2017-10-13 09:52 | Emergency (ER) | payer BC, OTHER ==
[2017-10-13 10:35] VITALS: BP 110/71
[2017-10-13] MEDS ORDERED: Ibuprofen TAB* 600 MG PO ONE (10:45)
--- NOTE | 2017-10-13 11:43 | UC ---
Lower Extremity/Ankle HPI - HPI Summary HPI Summary: Patient comes to urgent care today after falling in her yard about an hour ago twisted her right ankle inward. Patient is able to weight-bear with pain some swelling lateral right ankle - History of Current Complaint Chief Complaint: UCLowerExtremity Stated Complaint: ANKLE INJURY Time Seen by Provider: 10/13/17 10:39 Hx Obtained From: Patient Hx Last Menstrual Period: 09/20/17 ?: No Onset/Duration: Sudden Onset, Lasting Hours - 1, Still Present Pain Intensity: 10 Pain Scale Used: 0-10 Numeric Aggravating Factor(s): Standing, Ambulation Alleviating Factor(s): Rest, Elevation Able to Bear Weight: Yes - Allergies/Home Medications Allergies/Adverse Reactions: Allergies Allergy/AdvReac Type Severity Reaction Status Date / Time No Known Allergies Allergy Verified 10/13/17 10:26 Home Medications: Home Medications glipiZIDE [Glipizide ER] 10 mg PO DAILY 10/13/17 [History Confirmed 10/13/17] PMH/Surg Hx/FS Hx/Imm Hx Previously Healthy: No Endocrine History: Diabetes Cardiovascular History: Hypertension GI/ History: Gastroesophageal Reflux Psychological History: Depression - Surgical History Surgical History: Yes Surgery Procedure, Year, and Place: Tubal Ligation 1999. LEFT KNEE SCOPING 2015. RIGHT CARPAL TUNNEL 2014. ACL RECONSTRUCTION LEFT KNEE 2018 - Family History Known Family History: Positive: Hypertension, Diabetes - Social History Occupation: Unemployed Lives: With Family Alcohol Use: None Alcohol Amount: 1 X EVERY 3-4 MONTHS Substance Use Type: None Smoking Status (MU): Former Smoker Type: Cigarettes Amount Used/How Often: 1/2 PPD When Did the Patient Quit Smoking/Using Tobacco: 02/2015 Review of Systems Constitutional: Negative Skin: Negative Eyes: Negative ENT: Negative Respiratory: Negative Cardiovascular: Negative Gastrointestinal: Negative Genitourinary: Negative Motor: Negative Neurovascular: Negative Musculoskeletal: Arthralgia - lateral right ankle pain Neurological: Negative Psychological: Negative Is Patient Immunocompromised?: No All Other Systems Reviewed And Are Negative: Yes Physical Exam Triage Information Reviewed: Yes Appearance: Well-Appearing, Well-Nourished, Pain Distress - mild Vital Signs: Initial Vital Signs Temp 98 F 10/13/17 10:29 Pulse 72 10/13/17 10:29 Resp 18 10/13/17 10:29 BP 110/71 10/13/17 10:29 Pulse Ox 97 10/13/17 10:29 Vital Signs Reviewed: Yes Eye Exam: Normal Eyes: Positive: Conjunctiva Clear ENT Exam: Normal ENT: Positive: Normal ENT inspection, Hearing grossly normal. Negative: Nasal congestion, Trismus, Muffled voice, Hoarse voice Dental Exam: Normal Neck exam: Normal Neck: Positive: Supple, Nontender Respiratory Exam: Normal Respiratory: Positive: Chest non-tender, No respiratory distress, No accessory muscle use Cardiovascular Exam: Normal Cardiovascular: Positive: RRR, Pulses Normal, Brisk Capillary Refill Musculoskeletal Exam: Other Musculoskeletal: Positive: ROM Limited @ - right ankle, Edema @ - lateral right ankle Neurological Exam: Normal Neurological: Positive: Alert, Muscle Tone Normal Psychological Exam: Normal Skin Exam: Normal Diagnostics - Radiology No standard instances Xray Interpretation: No Acute Changes Radiology Interpretation Completed By: ED Physician, Radiologist - Patient Name : CARI WILKINSON Medical Record#: [id number] Ordering Physician: Nany Olmedo FRONT DESK SUPERVISOR Acct.#: [id number] : 1970 Age: 47 Sex: F Location: [facility] Exam Date: 10/13/17 1044 ADM Status: REG ER Order Information: ANKLE RIGHT 3+VWS Accession Number: [id number] CPT: 38192 HISTORY: injury , lateral pain COMPARISONS: None VIEWS: 3 , Frontal, lateral, and oblique views of the right ankle FINDINGS: BONE DENSITY: Normal. BONES: There is no acute displaced fracture. There are small well-corticated bone fragment off the medial malleolus consistent with remote avulsion injury. There are calcaneal enthesophytes. 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 ALIGNMENT: There is no dislocation. SOFT TISSUES: Unremarkable. OTHER FINDINGS: None. IMPRESSION: NO ACUTE OSSEOUS INJURY. IF SYMPTOMS PERSIST, RECOMMEND REPEAT IMAGING. <Electronically signed by Rodney Parham MD in OV> 1145 Dictated By: Rodney Parham MD Dictated Date/Time: 10/13/17 1145 Transcribed Date/Time: 10/13/17 1144 Copy to: CC:Nany Olmedo FRONT DESK SUPERVISOR; Sanjana Foster MD; Juliann Paz MD Imaging - [facility] Imaging - [facility] Imaging - [facility] [address] [facility] [address] [place], [place] [id number] [place] [id number] [place] [id number] ph [phone] ph ([phone]) ph ([phone]) This report is only to be considered final once signed by the Provider(s) as displayed in the "< Electronically Signed by >" field (s). Absence of a signature indicates the report is in a draft status and still needs to be finalized. In the event this document was created by someone other than the signing Provider, the individual initiating the document will be listed in the "Entered by:" or "Dictated by:" lan. of Re-Evaluation - Re-Evaluation First Eval Change: Improved - gelp splint and mumtaz wrap applied by nursing---- Lower Extremity Course/Dx - Course Course Of Treatment: gel splint RICE, Ibuprofen, mumtaz wrap follow with ortho - Differential Dx/Diagnosis Provider Diagnoses: right ankle sprain Discharge - Sign-Out/Discharge Documenting (check all that apply): Patient Departure All imaging exams completed and their final reports reviewed: Yes - Discharge Plan Condition: Stable Disposition: HOME Patient Education Materials: Ibuprofen (By mouth), Ankle Sprain (DC), Ankle Stirrup Splint (ED), R.I.C.E. Treatment (ED) Referrals: Des Aden MD [Medical Doctor] - If Needed Sanjana Foster MD [Primary Care Provider] - - Billing Disposition and Condition Condition: STABLE Disposition: Home - Attestation Statements Provider Attestation: I was available for consult. This patient was seen by the ALONSO. The patient was not presented to, seen by, or examined by me. -Trish
--- NOTE | 2017-10-13 11:48 | RAD ---
HISTORY: injury , lateral pain COMPARISONS: None VIEWS: 3 , Frontal, lateral, and oblique views of the right ankle FINDINGS: BONE DENSITY: Normal. BONES: There is no acute displaced fracture. There are small well-corticated bone fragment off the medial malleolus consistent with remote avulsion injury. There are calcaneal enthesophytes. 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 ALIGNMENT: There is no dislocation. SOFT TISSUES: Unremarkable. OTHER FINDINGS: None. IMPRESSION: NO ACUTE OSSEOUS INJURY. IF SYMPTOMS PERSIST, RECOMMEND REPEAT IMAGING.
== END 2017-10-13 12:20 | disposition home or self-care (01) ==
LOC: UCEAST 09:52
DX: S93.401A Sprain of unspecified ligament of right ankle, initial encounter (principal); X50.1XXA Overexertion from prolonged static or awkward postures, initial encounter; Y92.9 Unspecified place or not applicable; E11.9 Type 2 diabetes mellitus without complications; I10 Essential (primary) hypertension; K21.9 Gastro-esophageal reflux disease without esophagitis
CPT/HCPCS: 99213; A9270-GY; G0463

== ENCOUNTER 2018-01-19 05:23 | Emergency (ER) | payer BC ==
[2018-01-19] MEDS ORDERED: NS 0.9% 1000 ML* 1,000 ML IV ONE (06:06)
[2018-01-19 06:27] LABS: ABS Basophils 0.1 10^3/ul (0-0.2); ABS Eosinophils 0.1 10^3/ul (0-0.6); ABS Lymphocytes 1.5 10^3/ul (1.0-4.8); ABS Monocytes 0.6 10^3/ul (0-0.8); ABS Neutrophils 3.4 10^3/ul (1.5-7.7); ABS Nucleated RBC 0 10^3/ul; Eosinophil % 2.3 %; Hematocrit 39 % (35-47); Hemoglobin 12.6 g/dl (12.0-16.0); Lymphocyte % 27.3 %; Mean Corpuscular HGB Conc 33 g/dl (31-36); Mean Corpuscular Hemoglobin 28 pg (27-31); Mean Corpuscular Volume 87 fL (80-97); Mean Platelet Volume 7.8 fL (7.4-10.4); Nucleated Red Blood Cells % 0.1; Platelet Count 286 10^3/ul (150-450); Red Blood Count 4.48 10^6/ul (4.00-5.40); Red Cell Distribution Width 14 % (10.5-15); White Blood Count 5.7 10^3/ul (3.5-10.8)
[2018-01-19 06:35] LABS: INR 0.91 (0.77-1.02)
[2018-01-19 06:45] LABS: EGFR Non-African American 73.1 (>60)
--- NOTE | 2018-01-19 06:58 | ED ---
Abdominal Pain/Female - HPI Summary HPI Summary: A 47 y/o female presents to the ED c/o abdominal pain. Currently, the patient still has pain. As per triage, "Patient reports epigastric pain, diarrhea and nausea". According to the patient, she has been experiencing abdominal pains since Monday as she woke up in the middle of the night. She experienced diarrhea and really bad abdominal cramps which lasted 2 days. On Monday she felt a lot better, but that night she felt the same pain however it was diffuse. She denies any fever, urinary symptoms or vomiting but had nausea. Denies any abdominal operations. PMHx of DM and HTN. Patient took pain medications. - History of Current Complaint Chief Complaint: EDAbdPain Stated Complaint: ABD PAIN Time Seen by Provider: 01/19/18 06:02 Hx Obtained From: Patient Hx Last Menstrual Period: 09/20/17 Pain Intensity: 0 Allergies/Adverse Reactions: Allergies Allergy/AdvReac Type Severity Reaction Status Date / Time No Known Allergies Allergy Verified 01/19/18 06:17 PMH/Surg Hx/FS Hx/Imm Hx Endocrine/Hematology History: Reports: Hx Diabetes - type 2 Denies: Hx Thyroid Disease Cardiovascular History: Reports: Hx Hypertension Denies: Hx Pacemaker/ICD Respiratory History: Denies: Hx Asthma, Hx Chronic Obstructive Pulmonary Disease (COPD) GI History: Reports: Hx Gastroesophageal Reflux Disease - WITH MOTRIN ONLY Denies: Hx Ulcer History: Reports: Other Problems/Disorders - Incontinence Denies: Hx Dialysis, Hx Renal Disease Musculoskeletal History: Reports: Hx Arthritis - BACK AND KNEES Sensory History: Reports: Hx Contacts or Glasses - READING Denies: Hx Hearing Aid Opthamlomology History: Reports: Hx Contacts or Glasses - READING Psychiatric History: Reports: Hx Anxiety Denies: Hx Panic Disorder - Cancer History Hx Chemotherapy: No Hx Radiation Therapy: No - Surgical History Surgery Procedure, Year, and Place: Tubal Ligation 2000. LEFT KNEE SCOPING 2016. RIGHT CARPAL TUNNEL 2015. ACL RECONSTRUCTION LEFT KNEE 2018 Hx Anesthesia Reactions: No Infectious Disease History: No Infectious Disease History: Denies: Hx Hepatitis, Hx Human Immunodeficiency Virus (HIV), Traveled Outside the [place] in Last 30 Days - Family History Known Family History: Positive: Hypertension, Diabetes - Social History Alcohol Use: Rare Alcohol Amount: 1 X EVERY 3-4 MONTHS Substance Use Type: Reports: None Hx Tobacco Use: Yes Smoking Status (MU): Former Smoker Type: Cigarettes Amount Used/How Often: 1/2 PPD Review of Systems Negative: Fever Positive: Abdominal Pain, Diarrhea, Nausea. Negative: Vomiting Positive: no symptoms reported All Other Systems Reviewed And Are Negative: Yes Physical Exam - Summary Physical Exam Summary: Appearance: Well appearing, no pain distress Skin: warm, dry, reflects adequate perfusion Head/face: normal Eyes: EOMI, LIZETTE ENT: normal Neck: supple, non-tender Respiratory: CTA, breath sounds present Cardiovascular: RRR, pulses symmetrical Abdomen: tenderness RLQ, soft Musculoskeletal: normal, strength/ROM intact Neuro: normal, sensory motor intact, A&Ox3 Triage Information Reviewed: Yes Vital Signs On Initial Exam: Initial Vitals Temp Pulse Resp BP Pulse Ox 97.3 F 71 20 109/66 98 01/19/18 05:41 01/19/18 05:41 01/19/18 05:41 01/19/18 05:41 01/19/18 05:41 Vital Signs Reviewed: Yes Diagnostics - Vital Signs Vital Signs Temp Pulse Resp BP Pulse Ox 01/19/18 06:19 72 97 01/19/18 05:41 97.3 F 71 20 109/66 98 - Laboratory Lab Results: Lab Results 01/19/18 01/19/18 01/19/18 Range/Units 06:20 06:20 06:20 WBC 5.7 (3.5-10.8) 10^3/ul RBC 4.48 (4.00-5.40) 10^6/ul Hgb 12.6 (12.0-16.0) g/dl Hct 39 (35-47) % MCV 87 (80-97) fL MCH 28 (27-31) pg MCHC 33 (31-36) g/dl RDW 14 (10.5-15) % Plt Count 286 (150-450) 10^3/ul MPV 7.8 (7.4-10.4) fL Neut % (Auto) 59.2 % Lymph % (Auto) 27.3 % [place] % (Auto) 10.2 % Eos % (Auto) 2.3 % Baso % (Auto) 1.0 % Absolute Neuts (auto) 3.4 (1.5-7.7) 10^3/ul Absolute Lymphs (auto) 1.5 (1.0-4.8) 10^3/ul Absolute Monos (auto) 0.6 (0-0.8) 10^3/ul Absolute Eos (auto) 0.1 (0-0.6) 10^3/ul Absolute Basos (auto) 0.1 (0-0.2) 10^3/ul Absolute Nucleated RBC 0 10^3/ul Nucleated RBC % 0.1 INR (Anticoag Therapy) 0.91 (0.77-1.02) APTT 27.4 (26.0-36.3) seconds Sodium 133 L (135-145) mmol/L Potassium 4.2 (3.5-5.0) mmol/L Chloride 105 (101-111) mmol/L Carbon Dioxide 22 (22-32) mmol/L Anion Gap 6 (2-11) mmol/L BUN 23 (6-24) mg/dL Creatinine 0.83 (0.51-0.95) mg/dL Est GFR ( Amer) 88.4 (>60) Est GFR (Non-Af Amer) 73.1 (>60) BUN/Creatinine Ratio 27.7 H (8-20) Glucose 207 H (70-100) mg/dL Calcium 9.4 (8.6-10.3) mg/dL Total Bilirubin 0.20 (0.2-1.0) mg/dL AST 25 (13-39) U/L ALT 34 (7-52) U/L Alkaline Phosphatase 75 (34-104) U/L Troponin I 0.00 (<0.04) ng/mL Total Protein 7.2 (6.4-8.9) g/dL Albumin 4.0 (3.2-5.2) g/dL Globulin 3.2 (2-4) g/dL Albumin/Globulin Ratio 1.3 (1-3) Lipase 44 (11.0-82.0) U/L Beta HCG, Quant < 0.60 mIU/mL Result Diagrams: 01/19/18 06:20 01/19/18 06:20 Lab Statement: Any lab studies that have been ordered have been reviewed, and results considered in the medical decision making process. - EKG 0611 Cardiac Rate: NL - 64 BPM EKG Rhythm: Sinus Rhythm - 64 BPM Summary of EKG Findings: no acute changes Re-Evaluation - Re-Evaluation First Eval Re-Evaluation Time: 09:00 Change: Unchanged Comment: Patient admits to chronic pelvic pain. Abdominal Pain Fem Course/Dx - Course Course Of Treatment: A 47 y/o female presents to the ED c/o abdominal pain. Currently, the patient still has pain. As per triage, "Patient reports epigastric pain, diarrhea and nausea". According to the patient, she has been experiencing abdominal pains since Monday as she woke up in the middle of the night. She experienced diarrhea and really bad abdominal cramps which lasted 2 days. On Monday she felt a lot better, but that night she felt the same pain however it was diffuse. She denies any fever, urinary symptoms or vomiting but had nausea. Denies any abdominal operations. PMHx of DM and HTN. Patient took pain medications. Physical exam revealed tenderness in RLQ. An EKG revealed NSR of 64 BPM, no acute changes. In the ED course, the patient recieved IV fluids. PATIENT WAS SIGNED OUT TO DR. BENDER VIA DR. BARRAZA, PENDING CAT SCAN AND LABS, DURING SHIFT CHANGE ON 01/19/2018 AT 0700. - Diagnoses Differential Diagnosis: Positive: Appendicitis, Diverticulitis, Gall Bladder Disease, Pancreatitis, Renal Colic, Urinary Tract Infection Provider Diagnoses: Abdominal pain Discharge - Sign-Out/Discharge Documenting (check all that apply): Sign-Out Patient - FERNANDO Signing out patient TO: Dali Bender Receiving patient FROM: Geoff Barraza - Discharge Plan Condition: Stable Disposition: HOME Patient Education Materials: Acute Abdominal Pain (ED) Referrals: Sanjana Foster MD [Primary Care Provider] - (1-3 days) Additional Instructions: Follow up with your primary care physician and your SOFTWARE DEVELOPMENT SPECIALIST in 1-3 days. RETURN TO THE EMERGENCY DEPARTMENT FOR CHANGING OR WORSENING SYMPTOMS. - Billing Disposition and Condition Condition: STABLE Disposition: Home - Attestation Statements Document Initiated by Scribe: Yes Documenting Scribe: Scot De Oliveira Provider For Whom Stevie is Documenting (Include Credential): Geoff Barraza MD Scribe Attestation: Scot Bean scribed for Geoff Barraza MD on 01/19/18 at 2130. Scribe Documentation Reviewed: Yes Provider Attestation: The documentation as recorded by the scribe, Scot De Oliveira accurately reflects the service I personally performed and the decisions made by me, Geoff Barraza MD Status of Scribe Document: Viewed
[2018-01-19 07:12] LABS: Urine Appearance Clear; Urine Blood Negative (Negative); Urine Color Straw; Urine Ketones Negative (Negative); Urine Protein Negative (Negative); Urine Specific Gravity 1.012 (1.010-1.030); Urine Urobilinogen Negative (Negative)
[2018-01-19] MEDS ORDERED: Iodixanol* (CONTRAST) 320 MG/ML 100 ML SDV IV ONE (07:26)
--- NOTE | 2018-01-19 09:00 | ED ---
Progress - Progress Note Progress Note: Patient was signed out from Dr. Barnard to Dr. Bender, pending CT abd/pelvis, at 07:00 01/19/18. Abdomen/pelvis CT impression: 1. NORMAL APPENDIX. 2. HEPATOMEGALY WITH FATTY INFILTRATION OF THE LIVER. 3. ENLARGEMENT OF THE VASCULATURE ALONG THE PELVIS BILATERALLY SUGGESTIVE OF PELVIC CONGESTION SYNDROME IN THE CORRECT CLINICAL SETTING. ED physician has reviewed this imaging report. Dx: abdominal pain, pelvic congestion syndrome. The patient will be discharged. Re-Evaluation - Re-Evaluation First Eval Re-Evaluation Time: 09:00 Change: Unchanged Comment: Patient admits to chronic pelvic pain. Course/Dx - Course Course Of Treatment: Patient was signed out from Dr. Barnard to Dr. Bender, pending CT abd/pelvis, at 07:00 01/19/18. Upon re-eval the patient admits to chronic pelvic pain. This is likely due to pelvic congestion syndrome. The patient will be discharged. Abdomen/pelvis CT impression: 1. NORMAL APPENDIX. 2. HEPATOMEGALY WITH FATTY INFILTRATION OF THE LIVER. 3. ENLARGEMENT OF THE VASCULATURE ALONG THE PELVIS BILATERALLY SUGGESTIVE OF PELVIC. CONGESTION SYNDROME IN THE CORRECT CLINICAL SETTING. I discussed results with patient and she reports feeling better. She is hemodynamically stable and safe for discharge. Strict return precautions given and she will otherwise follow up with her PHOTOENGRAVER APPRENTICE and PCP. - Diagnoses Provider Diagnoses: Abdominal pain Discharge - Sign-Out/Discharge Documenting (check all that apply): Patient Departure - DC - Discharge Plan Condition: Stable Disposition: HOME Patient Education Materials: Acute Abdominal Pain (ED) Referrals: Sanjana Foster MD [Primary Care Provider] - (1-3 days) Additional Instructions: Follow up with your primary care physician and your PHOTOENGRAVER APPRENTICE in 1-3 days. RETURN TO THE EMERGENCY DEPARTMENT FOR CHANGING OR WORSENING SYMPTOMS. - Billing Disposition and Condition Condition: STABLE Disposition: Home - Attestation Statements Document Initiated by Scribe: Yes Documenting Scribe: Alejo Santiago Provider For Whom Stevie is Documenting (Include Credential): Dali Bender MD Scribe Attestation: Alejo Bean scribed for Dali Bender MD on 01/21/18 at 0245. Scribe Documentation Reviewed: Yes Provider Attestation: The documentation as recorded by the scribe, Alejo DesRochers accurately reflects the service I personally performed and the decisions made by me, Aruna Bender MD Status of Scribe Document: Viewed
[2018-01-19 09:29] VITALS: BP 143/90
== END 2018-01-19 09:30 | disposition home or self-care (01) ==
LOC: ED 05:23
DX: R10.13 Epigastric pain (principal); R19.7 Diarrhea, unspecified; R11.0 Nausea; E11.9 Type 2 diabetes mellitus without complications; I10 Essential (primary) hypertension; K76.0 Fatty (change of) liver, not elsewhere classified
CPT/HCPCS: 36415; 74177; 80053; 81003; 83690; 84484; 84702; 85025; 85610; 85730; 93005; 96361; 96374; 99283; Q9967

== ENCOUNTER 2018-05-12 10:07 | Emergency (ER) | payer BC, OTHER ==
--- OUTSIDE RECORDS SUMMARY | 2018-05-12 10:14 | XMS REPORT | Continuity of Care Document ---
:1970 External Reference #:[id number] Author Name Covert, Silvia Care Team Providers Name Role Phone Sanjana Foster MD Primary Care Physician Unavailable Payers Date Identification Numbers Payment Provider Subscriber Policy Number: [id number] [facility] Oriana Wilkinson PayID: [id number] [address] [place] [address] Onset: 2012 Policy Number: [id number] [facility] Insurance [facility] Oriana Wilkinson PayID: [id number] [address] [address] [place] [address] Onset: 2011 Policy Number: [id number] [facility] Oriana Wilkinson PayID: [id number] [address] [address] [place] [address] Onset: 2016 PayID: [id number] Workers [employer] Oriana Wilkinson Effective: 2017 Policy Number: [facility] Oriana Wilkinson [id number] Onset: 2017 PayID: [id number] [place] [address] Advance Directives Description No Information Available Problems Date Description Provider Status Onset: 03/17/2014 Essential hypertension Melchor Rendon M.D. Active Onset: 12/10/2015 Type 2 diabetes mellitus Prerna Addison NHeath Active Onset: 03/17/2014 Anxiety Melchor Rendon M.D. Active Onset: 05/08/2014 Degeneration of lumbar intervertebral Hamzah Gonzalez M.D. Active disc Onset: 04/11/2018 Pelvic varices Nash Scott M.D. Active Family History Date Family Member(s) Observation Comments General Heart Disease General Diabetes General Breast Cancer General Hypertension : (age Father due to Aspiration 68 Years) pneumonia Father Hypertension Father Diabetes Father Heart Disease PTCA Father Gastroesophageal Reflux Disease (GERD) Mother Hypertension Mother Breast cancer (Age 48+/-) Just diagnosed with recurrance, Age 69 Children 3 2 Sons 1 Daughter Siblings 3 3 Sisters - 1 with HTN and DM Social History Type Date Description Comments Sex Unknown Marital Status Lives With Family Occupation [employer] ETOH Use Rarely consumes alcohol 1 - 2 per year Recreational Drug Use Denies Drug Use Tobacco Use Start: Unknown End: Patient is a former Quit February 2015 Unknown smoker Smoking Status Reviewed: 04/11/18 Patient is a former Quit February 2015 smoker Exercise Type/Frequency Exercises sporadically Allergies, Adverse Reactions, Alerts Date Description Reaction Status Severity Comments 10/15/2013 NKDA Active 04/11/2018 MRI Contrast Dye skin rash on Active delayed reaction face,itchy scalp post MRI Medications Medication Date Status Form Strength Qnty SIG Indications Ordering Provider Prednisone 04/11 Active Tablets 50mg 6tabs take I86.2 prednison inocencia Scott 50 mg M.D. by mouth 13, 7 and 1 hour before angiograp hy with Dr. Scott for contrast allergy prophylax is Medroxyprogestero 03/16 Active Tablets 10mg one Unknown ne tablet daily for the first 10 days of each month Glipizide XL 05/12 Active Tablets ER 10mg 60tab 2 by 24HR s mouth Varn, N.P. every in the morning Blood Glucose 04/07 Active Kit W/Device 1unit test nne Monitoring System s blood Varn, N.P. sugars once fasting and 2 hours after dinner meal Blood Glucose 04/07 Active Strips 100un test E11 Test its blood Varn, N.P. sugar fasting in in the morning and 2 hours after dinner meal Lancet Device 04/07 Active Misc 100un use when its testing Varn, N.P. blood gluose twice a day Omeprazole 02/[address] 20mg 30cap Take One K21. s Capsule Varn, N.P. By Mouth Every Day Metformin HCL ER 12/09 Active Tablets ER 500mg 180ta Take 2 24HR bs Tablets Varn, N.P. By Mouth Every Day With Dinner. Patient states she currently is not taking this. Fluticasone 07/06 Active Suspension 50mcg/Act 16uni Place 2 G56.01 ts Sprays In Varn, N.P. Each Nostril Daily as Needed Lisinopril Active Tablets 30mg 90tab Take 1 Prerna /0000 s Tablet By Varn, N.P. Mouth Daily Sertraline HCL Active Tablets 100mg 30tab Take 1 Prerna /0000 s Tablet By Varn, N.P. Mouth Every Day Amoxicillin/Clavu 05/16 Hx Tablets 875-125mg 20tab one J01.90 Prerna lanate Potassium s tablet by Varn, N.P. - mouth 05/26 daily for 10 days Fluconazole 05/16 Hx Tablets 150mg 3tabs one by J01.90 mouth Varn, N.P. - every 3 04/11 days 3 doses Glipizide XL 12/08 Hx Tablets ER 5mg 30tab one by E11.9 24HR s mouth Varn, N.P. - every in 05/12 morning Tobramycin 03/30 Hx Solution 0.3% 5ml 1 [...] Amoxicillin/Clavu 02/25 Hx Tablets 875-125mg 20tab one J01.00 Prerna lanate Potassium s tablet by Varn, N.P. - mouth 03/07 twice daily for 10 days Fluconazole 02/25 Hx Tablets 150mg 3tabs one by J01.00 mouth Varn, N.P. - every 3 05/07 days 3 doses Fluticasone 02/25 Hx Suspension 50mcg/Act 16uni 2 sprays J01.00 Propionate ts each Varn, N.P. - nostril 03/11 daily needed Chantix 12/12 Hx Tablets 1mg 60tab 1 by F17.210 s mouth Varn, N.P. - once a Chantix Starting 10/22 Hx Tablets 0.5mg X 1tabs take as 305.1 Prerna Month 11 & 1 mg directed Varn, N.P. - X 42 (0.5 mg 12/05 by mouth daily x3 days, 0.5 mg twice a day x 4 days, then 1 mg twice a day up to three months) Oxybutynin 10/22 Hx Tablets ER 10mg 30tab Take 1 N39.41 Prerna Chloride ER 24HR s Tablet By Varn, N.P. - Mouth 08/14 Every Cyclobenzaprine 06/23 Hx Tablets 10mg 45tab 1 by 724.2 Hamzah HCL s mouth Lisa, - twice a M.D. 07/19 day needed spasm B6 Natural 03/17 Hx Tablets [...] three M.D. 05/08 times day as needed R92-Lkswpl Hx Chewtabs 1mg 1 PO Unknown Daily - 05/07 Tumeric 00 Hx once a Unknown /0000 day - 11/11 Coq-10 00 Hx Capsules 150mg Unknown /0000 - 08/14 Biotin 00 Hx Capsules 10mg Unknown /0000 - 08/14 Estroven + Energy Hx Tablets Unknown Maximumstrength /0000 - 08/14 Multivitamin 00 Hx Chewtabs 2 by Unknown /0000 mouth - every day 08/14 Immunizations CPT Code Status Date Vaccine Reaction Lot # [id number] Given 12/08/2016 Influenza Virus Vaccine, No immediate [id number] Quadrivalent, Split, reaction..jh Preservative Free [id number] Given 11/12/2015 Influenza Virus Vaccine, no reaction noted ... [id number] Quadrivalent, Split, Preservative Free 19682 Given 07/07/2015 Tdap - [id number] Tetanus/Diptheria/Acellular Pertussis [id number] Given 12/12/2014 Influenza Virus Vaccine, [id number] Quadrivalent, Split, Preservative Free Vital Signs Date Vital Result Comment 04/11/2018 9:13am Height 69 inches 5'9" Weight 229.25 lb with shoes Heart Rate 70 /min BP Systolic Sitting 110 mmHg Lue BP Diastolic Sitting 80 mmHg Lue Respiratory Rate 16 /min BMI (Body Mass Index) 33.9 kg/m2 08/14/2017 9:43am Height 69 inches 5'9" Weight 230.50 lb Heart Rate 72 /min BP Systolic Sitting 120 mmHg BP Diastolic Sitting 80 mmHg Respiratory Rate 16 /min Body Temperature 98.1 F BMI (Body Mass Index) 34.0 kg/m2 05/16/2017 4:03pm Weight 238.50 lb Heart Rate 78 /min BP Systolic 118 mmHg BP Diastolic 60 mmHg Body Temperature 98.4 F O2 % BldC Oximetry 93 % 05/12/2017 2:47pm Height 68.5 inches 5'8.50" Weight 241.50 lb Heart Rate 77 /min BP Systolic 130 mmHg BP Diastolic 80 mmHg Body Temperature 98.5 F O2 % BldC Oximetry 96 % BMI (Body Mass Index) 36.2 kg/m2 04/14/2017 11:51am Weight 241.00 lb Heart Rate 87 /min BP Systolic 132 mmHg BP Diastolic 67 mmHg O2 % BldC Oximetry 95 % 04/12/2017 1:09pm Height 69 inches 5'9" Weight 240.00 lb Heart Rate 67 /min BP Systolic 136 mmHg BP Diastolic 76 mmHg Respiratory Rate 19 /min Body Temperature 98.5 F Pain Level 10 BMI (Body Mass Index) 35.4 kg/m2 04/07/2017 10:52am Weight 238.00 lb Heart Rate 76 /min BP Systolic 116 mmHg BP Diastolic 72 mmHg O2 % BldC Oximetry 97 % 12/08/2016 10:47am Weight 230.75 lb Heart Rate 82 /min BP Systolic 108 mmHg BP Diastolic 68 mmHg Body Temperature 98.4 F O2 % BldC Oximetry 93 % 06/08/2016 10:50am Height 68.5 inches 5'8.50" Weight 223.00 lb Heart Rate 90 /min BP Systolic 104 mmHg BP Diastolic 62 mmHg Body Temperature 97.7 F O2 % BldC Oximetry 98 % BMI (Body Mass Index) 33.4 kg/m2 03/30/2016 2:46pm Height 69 inches 5'9" Weight 225.00 lb Heart Rate 70 /min BP Systolic 104 mmHg BP Diastolic 62 mmHg Body Temperature 98.9 F O2 % BldC Oximetry 98 % BMI (Body Mass Index) 33.2 kg/m2 02/23/2016 12:59pm Height 69 inches 5'9" Weight 221.00 lb Heart Rate 65 /min BP Systolic 100 mmHg BP Diastolic 62 mmHg Body Temperature 98.7 F O2 % BldC Oximetry 97 % BMI (Body Mass Index) 32.6 kg/m2 12/10/2015 8:54am Weight 224.00 lb Heart Rate 66 /min BP Systolic Sitting 120 mmHg BP Diastolic Sitting 76 mmHg Respiratory Rate 15 /min O2 % BldC Oximetry 98 % 11/12/2015 11:46am Height 69 inches 5'9" Weight 219.50 lb Heart Rate 75 /min BP Systolic 121 mmHg BP Diastolic 73 mmHg Body Temperature 99.0 F BMI (Body Mass Index) 32.4 kg/m2 08/20/2015 1:46pm Height 69 inches 5'9" Weight 210.00 lb Heart Rate 60 /min Respiratory Rate 16 /min Pain Level 0 BMI (Body Mass Index) 31.0 kg/m2 07/30/2015 10:08am Height 69 inches 5'9" Weight 210.00 lb Body Temperature 98.1 F Pain Level 1 BMI (Body Mass Index) 31.0 kg/m2 07/16/2015 9:59am Height 69 inches 5'9" Weight 210.00 lb Heart Rate 60 /min BP Systolic Sitting 116 mmHg BP Diastolic Sitting 68 mmHg Respiratory Rate 16 /min Pain Level 5 BMI (Body Mass Index) 31.0 kg/m2 07/07/2015 2:19pm Height 68 inches 5'8" Weight 223.00 lb Heart Rate 84 /min BP Systolic Sitting 122 mmHg BP Diastolic Sitting 76 mmHg Respiratory Rate 15 /min Body Temperature 98.3 F O2 % BldC Oximetry 98 % BMI (Body Mass Index) 33.9 kg/m2 05/08/2015 1:38pm Height 68 inches 5'8" Weight 210.50 lb Heart Rate 68 /min BP Systolic Sitting 112 mmHg BP Diastolic Sitting 72 mmHg Body Temperature 99.0 F Pain Level 0 O2 % BldC Oximetry 97 % BMI (Body Mass Index) 32.0 kg/m2 02/25/2015 4:28pm Heart Rate 85 /min BP Systolic Sitting 109 mmHg BP Diastolic Sitting 73 mmHg Body Temperature 98.9 F O2 % BldC Oximetry 96 % 02/06/2015 11:45am Weight 203.00 lb Heart Rate 74 /min BP Systolic Sitting 111 mmHg BP Diastolic Sitting 75 mmHg Body Temperature 98.2 F 12/12/2014 9:59am Weight 199.00 lb Heart Rate 63 /min BP Systolic Sitting 112 mmHg BP Diastolic Sitting 64 mmHg Body Temperature 98.4 F O2 % BldC Oximetry 98 % 10/22/2014 9:45am Weight 190.00 lb Heart Rate 65 /min BP Systolic Sitting 132 mmHg BP Diastolic Sitting 78 mmHg Body Temperature 98.4 F O2 % BldC Oximetry 97 % 07/24/2014 3:06pm Height 69 inches 5'9" Weight 196.00 lb Heart Rate 84 /min BP Systolic Sitting 160 mmHg BP Diastolic Sitting 92 mmHg Pain Level 0 BMI (Body Mass Index) 28.9 kg/m2 06/23/2014 2:53pm Height 69 inches 5'9" Weight 202.00 lb Heart Rate 78 /min BP Systolic Sitting 126 mmHg BP Diastolic Sitting 80 mmHg Pain Level 5 back BMI (Body Mass Index) 29.8 kg/m2 06/05/2014 9:30am Height 69 inches 5'9" Weight 205.00 lb Heart Rate 76 /min BP Systolic Sitting 122 mmHg BP Diastolic Sitting 78 mmHg Pain Level 2 back BMI (Body Mass Index) 30.3 kg/m2 05/08/2014 9:32am Height 69 inches 5'9" Weight 198.00 lb Heart Rate 76 /min BP Systolic Sitting 124 mmHg BP Diastolic Sitting 70 mmHg Pain Level 3 back BMI (Body Mass Index) 29.2 kg/m2 04/03/2014 8:32am Height 69 inches 5'9" Weight 194.38 lb Heart Rate 88 /min BP Systolic Sitting 118 mmHg BP Diastolic Sitting 60 mmHg Body Temperature 98.1 F O2 % BldC Oximetry 96 % BMI (Body Mass Index) 28.7 kg/m2 03/17/2014 2:43pm Height 69 inches 5'9" Weight 194.50 lb Heart Rate 92 /min BP Systolic Sitting 124 mmHg BP Diastolic Sitting 72 mmHg Body Temperature 98.8 F BMI (Body Mass Index) 28.7 kg/m2 10/15/2013 1:10pm Height 69 inches 5'9" Weight 190.00 lb Heart Rate 95 /min BP Systolic 121 mmHg BP Diastolic 77 mmHg BMI (Body Mass Index) 28.1 kg/m2 11/17/2011 2:43pm Height 69 inches 5'9" Weight 186.00 lb Heart Rate 68 /min BP Systolic 137 mmHg BP Diastolic 90 mmHg BMI (Body Mass Index) 27.5 kg/m2 Results Test Date Facility Test Result H/L Range Note CBC Auto Diff 01/19/2018 [facility] White Blood 5.7 10^3/uL N 3.5-10.[address] [place] [address] [phone] Red Blood Count 4.48 10^6/uL N 4.00-5.40 Hemoglobin 12.6 g/dL N 12.0-16.0 Hematocrit 39 % N 35-47 Mean Corpuscular Volume 87 fL N 80-97 Mean Corpuscular Hemoglobin 28 pg N 27-31 Mean Corpuscular HGB Conc 33 g/dL N 31-36 Red Cell Distribution Width 14 % N 10.5-15 Platelet Count 286 10^3/uL N 150-450 Mean Platelet Volume 7.8 fL N 7.4-10.4 Abs Neutrophils 3.4 10^3/uL N 1.5-7.7 Abs Lymphocytes 1.5 10^3/uL N 1.0-4.8 Abs Monocytes 0.6 10^3/uL N 0-0.8 Abs Eosinophils 0.1 10^3/uL N 0-0.6 Abs Basophils 0.1 10^3/uL N 0-0.2 Abs Nucleated RBC 0 10^3/uL Granulocyte % 59.2 % Lymphocyte % 27.3 % Monocyte % 10.2 % Eosinophil % 2.3 % Basophil % 1.0 % Nucleated Red Blood Cells % 0.1 Inr/Protime 01/19/2018 [facility] Inr 0.91 N 0.77-1.[address] [place] [address] [phone] Laboratory test 01/19/2018 [facility] Partial 27.4 seconds N 26.0-36.[address] [place] [address] PTT [phone] Urinalysis 01/19/2018 [facility] Urine Color Straw Profile [address] [place] [address] [phone] Urine Appearance Clear Urine Specific [place] 1.012 N 1.010-1.030 Urine pH 5.0 N 5-9 Urine Urobilinogen Negative Negative Urine Ketones Negative Negative Urine Protein Negative Negative Urine Leukocytes Negative Negative Urine Blood Negative Negative Urine Nitrite Negative Negative Urine Bilirubin Negative Negative Urine Glucose 1+(50 mg/dL) Abnormal Negative Comp Metabolic Panel 01/19/2018 [facility] Sodium 133 mmol/L Low 135-145 [address] [place] [address] [phone] Potassium 4.2 mmol/L N 3.5-5.0 Chloride 105 mmol/L N 101-111 Co2 Carbon Dioxide 22 mmol/L N 22-32 Anion Gap 6 mmol/L N 2-11 Glucose 207 mg/dL High 70-100 Blood Urea Nitrogen 23 mg/dL N 6-24 Creatinine 0.83 mg/dL N 0.51-0.95 BUN/Creatinine Ratio 27.7 High 8-20 Calcium 9.4 mg/dL N 8.6-10.3 Total Protein 7.2 g/dL N 6.4-8.9 Albumin 4.0 g/dL N 3.2-5.2 Globulin 3.2 g/dL N 2-4 Albumin/Globulin Ratio 1.3 N 1-3 Total Bilirubin 0.20 mg/dL N 0.2-1.0 Alkaline Phosphatase 75 U/L N 34-104 Alt 34 U/L N 7-52 Ast 25 U/L N 13-39 Egfr Non- 73.1 >60 Egfr 88.4 >60 1 Laboratory test finding 01/19/2018 [facility] Lipase 44 U/L N 11.0-82.[address] [place] [address] [phone] Troponin-I (TnI) 0.00 ng/mL <0.04 2 HCG < 0.60 mIU/mL 3 Laboratory test 08/14/2017 [facility] Culture Throat SEE RESULT [address] [place] [address] [phone] Laboratory test 08/14/2017 [facility] Rapid Group A <pending> finding Strep Laboratory test 08/14/2017 [facility] Hemoglobin A1c 7.8 High 5-7 finding CBC Auto Diff 05/20/2017 [facility] White Blood 6.9 10^3/uL N 3.5-[address] Count 0.8 [place] [address] [phone] Red Blood Count 4.16 10^6/uL N 4.0-5.4 Hemoglobin 12.2 g/dL N 12.0-16.0 Hematocrit 37 % N 35-47 Mean Corpuscular Volume 88 fL N 80-97 Mean Corpuscular Hemoglobin 29 pg N 27-31 Mean Corpuscular HGB Conc 33 g/dL N 31-36 Red Cell Distribution Width 14 % N 10.5-15 Platelet Count 319 10^3/uL N 150-450 Mean Platelet Volume 8.7 um3 N 7.4-10.4 Abs Neutrophils 4.8 10^3/uL N 1.5-7.7 Abs Lymphocytes 1.3 10^3/uL N 1.0-4.8 Abs Monocytes 0.5 10^3/uL N 0-0.8 Abs Eosinophils 0.1 10^3/uL N 0-0.6 Abs Basophils 0.1 10^3/uL N 0-0.2 Abs Nucleated RBC 0 10^3/uL Granulocyte % 70.0 % N 38-83 Lymphocyte % 19.4 % Low 25-47 Monocyte % 8.0 % High 0-7 Eosinophil % 1.8 % N 0-6 Basophil % 0.8 % N 0-2 Nucleated Red Blood Cells % 0 Pthi 05/15/2017 [facility] PTH Intact 5.6 pmol/L N 1.3-9.[address] [place] [address] [phone] Calcium (PTH Intact) 9.8 mg/dL N 8.6-10.3 Laboratory test 05/15/2017 [facility] Partial 30.4 seconds N 26.0-36.[address] [place] [address] PTT [phone] Urinalysis 05/15/2017 [facility] Urine Color Yellow Profile [address] [place] [address] [phone] Urine Appearance Clear Urine Specific [place] 1.017 N 1.010-1.030 Urine pH 5.0 N 5-9 Urine Urobilinogen Negative Negative Urine Ketones Negative Negative Urine Protein Negative Negative Urine Leukocytes Negative Negative Urine Blood Negative Negative Urine Nitrite Negative Negative Urine Bilirubin Negative Negative Urine Glucose 1+(50 mg/dL) Abnormal Negative Comp Metabolic Panel 05/15/2017 [facility] Sodium 132 mmol/L Low 133-[address] [place] [address] [phone] Potassium 5.0 mmol/L N 3.5-5.0 Chloride 98 mmol/L Low 101-111 Co2 Carbon Dioxide 26 mmol/L N 22-32 Anion Gap 8 mmol/L N 2-11 Glucose 171 mg/dL High 70-100 Blood Urea Nitrogen 20 mg/dL N 6-24 Creatinine 0.87 mg/dL N 0.51-0.95 BUN/Creatinine Ratio 23.0 High 8-20 Calcium 9.8 mg/dL N 8.6-10.3 Total Protein 7.6 g/dL N 6.4-8.9 Albumin 4.3 g/dL N 3.2-5.2 Globulin 3.3 g/dL N 2-4 Albumin/Globulin Ratio 1.3 N 1-3 Total Bilirubin 0.50 mg/dL N 0.2-1.0 Alkaline Phosphatase 62 U/L N 34-104 Alt 37 U/L N 7-52 Ast 25 U/L N 13-39 Egfr Non- 69.2 >60 Egfr 89.0 >60 5 CBC Auto 05/15/2017 [facility] White Blood 12.5 10^3/uL High 3.5-10.[address] [place] [address] [phone] Red Blood Count 4.31 10^6/uL N 4.0-5.4 Hemoglobin 12.5 g/dL N 12.0-16.0 Hematocrit 38 % N 35-47 Mean Corpuscular Volume 89 fL N 80-97 Mean Corpuscular Hemoglobin 29 pg N 27-31 Mean Corpuscular HGB Conc 33 g/dL N 31-36 Red Cell Distribution Width 14 % N 10.5-15 Platelet Count 278 10^3/uL N 150-450 Mean Platelet Volume 8.6 um3 N 7.4-10.4 Abs Neutrophils 9.8 10^3/uL High 1.5-7.7 Abs Lymphocytes 1.7 10^3/uL N 1.0-4.8 Abs Monocytes 0.9 10^3/uL High 0-0.8 Abs Eosinophils 0.1 10^3/uL N 0-0.6 Abs Basophils 0.1 10^3/uL N 0-0.2 Abs Nucleated RBC 0 10^3/uL Granulocyte % 78.3 % N 38-83 Lymphocyte % 13.5 % Low 25-47 Monocyte % 6.9 % N 0-7 Eosinophil % 0.7 % N 0-6 Basophil % 0.6 % N 0-2 Nucleated Red Blood Cells % 0 Laboratory test 04/07/2017 [facility] Hemoglobin A1c 8.6 High 5-7 finding Laboratory test 12/08/2016 [facility] House Hemoglobin A1c 7.3 High 5-7 finding Laboratory test 06/15/2016 [facility] Hemoglobin A1c 7.2 % High Less than [address] (Glyco HGB) 6.0 [place], [place] [id number] [phone] Urine Microalbumin 06/15/2016 [facility] Urine Creatinine 138.01 N Random [address] mg/[place] [address] [phone] Ur Microalbumin (mg/L) < 15.0 mg/L N Urine Microalbumin/Creatinine TNP ug/mg N <31 7 CBC Auto Diff 06/15/2016 [facility] White Blood 6.0 10^3/uL N 3.5-10.[address] [place] [address] [phone] Red Blood Count 4.29 10^6/uL N 4.0-5.4 Hemoglobin 12.4 g/dL N 12.0-16.0 Hematocrit 37 % N 35-47 Mean Corpuscular Volume 87 fL N 80-97 Mean Corpuscular Hemoglobin 29 pg N 27-31 Mean Corpuscular HGB Conc 33 g/dL N 31-36 Red Cell Distribution Width 14 % N 10.5-15 Platelet Count 292 10^3/uL N 150-450 Mean Platelet Volume 9 um3 N 7.4-10.4 Abs Neutrophils 3.9 10^3/uL N 1.5-7.7 Abs Lymphocytes 1.5 10^3/uL N 1.0-4.8 Abs Monocytes 0.4 10^3/uL N 0-0.8 Abs Eosinophils 0.1 10^3/uL N 0-0.6 Abs Basophils 0.1 10^3/uL N 0-0.2 Abs Nucleated RBC 0.01 10^3/uL N Granulocyte % 65.2 % N 38-83 Lymphocyte % 24.8 % Low 25-47 Monocyte % 7.1 % N 1-9 Eosinophil % 1.9 % N 0-6 Basophil % 1.0 % N 0-2 Nucleated Red Blood Cells % 0.2 N Laboratory test 02/23/2016 [facility] House Hemoglobin A1c 6.5 5-7 finding Laboratory test 02/12/2016 [facility] CSF Glucose 75 mg/dL High 40-70 8, [address] [place], [place] [id number] [phone] CSF Protein 39 mg/dL N 15-45 10 CSF Culture & 02/12/2016 [facility] CSF Culture SEE RESULT [address] [place] [address] [phone] CSF Cell Count 02/12/2016 [facility] Body Fluid Cerebral N [address] [address] [phone] Body Fluid Appearance Clear N Body Fluid Color Colorless N CSF Tube # 4 N Body Fluid Volume 1 mL N Body Fluid WBC 1 /mcL N Body Fluid RBC 1 /mcL N Body Fluid Comment (SEE NOTE) N 12 Body Fluid Lymph 100 % N Body Fluid Total Cells Counted 1 N Fluid Reviewed By MD (SEE NOTE) N 13 Comp Metabolic Panel 02/12/2016 [facility] Sodium 137 mmol/L N 133-[address] [place] [address] [phone] Potassium 4.3 mmol/L N 3.5-5.0 Chloride 102 mmol/L N 101-111 Co2 Carbon Dioxide 27 mmol/L N 22-32 Anion Gap 8 mmol/L N 2-11 Glucose 155 mg/dL High 70-100 Blood Urea Nitrogen 17 mg/dL N 6-24 Creatinine 0.89 mg/dL N 0.51-0.95 BUN/Creatinine Ratio 19.1 N 8-20 Calcium 9.0 mg/dL N 8.6-10.3 Total Protein 7.5 g/dL N 6.4-8.9 Albumin 4.2 g/dL N 3.2-5.2 Globulin 3.3 g/dL N 2-4 Albumin/Globulin Ratio 1.3 N 1-3 Total Bilirubin 0.30 mg/dL N 0.2-1.0 Alkaline Phosphatase 49 U/L N 34-104 Alt 24 U/L N 7-52 Ast 19 U/L N 13-39 Egfr Non- 68.0 N >60 Egfr 87.4 N >60 14 CBC Auto 02/12/2016 [facility] White Blood 12.3 10^3/uL High 3.5-10.[address] [place] [address] [phone] Red Blood Count 4.04 10^6/uL N 4.0-5.4 Hemoglobin 12.1 g/dL N 12.0-16.0 Hematocrit 36 % N 35-47 Mean Corpuscular Volume 89 fL N 80-97 Mean Corpuscular Hemoglobin 30 pg N 27-31 Mean Corpuscular HGB Conc 33 g/dL N 31-36 Red Cell Distribution Width 13 % N 10.5-15 Platelet Count 306 10^3/uL N 150-450 Mean Platelet Volume 8 um3 N 7.4-10.4 Abs Neutrophils 10.5 10^3/uL High 1.5-7.7 Abs Lymphocytes 1.2 10^3/uL N 1.0-4.8 Abs Monocytes 0.3 10^3/uL N 0-0.8 Abs Eosinophils 0 10^3/uL N 0-0.6 Abs Basophils 0.1 10^3/uL N 0-0.2 Abs Nucleated RBC 0 10^3/uL N Granulocyte % 86.0 % High 38-83 Lymphocyte % 10.1 % Low 25-47 Monocyte % 2.8 % N 1-9 Eosinophil % 0.3 % N 0-6 Basophil % 0.8 % N 0-2 Nucleated Red Blood Cells % 0 N Urinalysis Profile 02/12/2016 [facility] Urine Color Yellow N [address] [place], [place] [id number] [phone] Urine Appearance Cloudy N Urine Specific [place] 1.026 N 1.010-1.030 Urine pH 7.0 N 5-9 Urine Urobilinogen Negative N Negative Urine Ketones Negative N Negative Urine Protein 1+(30 mg/dL) Abnormal Negative Urine Leukocytes Trace Abnormal Negative Urine Blood Negative N Negative * * Abnormal Negative 15 Urine Nitrite Negative N Negative Urine Bilirubin Negative N Negative Urine Glucose Negative N Negative Urine White Blood Cell Trace(0-5/hpf) N Absent Urine Red Blood Cell 2+(6-10/hpf) Abnormal Absent Urine Bacteria Absent N Absent Urine Squamous Epithelial Cell Present Abnormal Absent Urine Culture And 02/12/2016 [facility] Urine Culture SEE RESULT [address] [place] [address] [phone] Laboratory test 02/12/2016 [facility] Point of Care 152 mg/dL High 74-[address] Glucose [place], [place] [id number] [phone] Laboratory test 12/07/2015 [facility] Hemoglobin A1c 7.0 % High Less [address] (Glyco HGB) [place] [address] 6.0 [phone] Comp Metabolic 11/19/2015 [facility] Sodium 136 mmol/L N 133- [address] [place] [address] [phone] Potassium 4.4 mmol/L N 3.5-5.0 Chloride 105 mmol/L N 101-111 Co2 Carbon Dioxide 25 mmol/L N 22-32 Anion Gap 6 mmol/L N 2-11 Glucose 118 mg/dL High 70-100 Blood Urea Nitrogen 19 mg/dL N 6-24 Creatinine 0.84 mg/dL N 0.51-0.95 BUN/Creatinine Ratio 22.6 High 8-20 Calcium 9.0 mg/dL N 8.6-10.3 Total Protein 7.0 g/dL N 6.4-8.9 Albumin 3.8 g/dL N 3.2-5.2 Globulin 3.2 g/dL N 2-4 Albumin/Globulin Ratio 1.2 N 1-3 Total Bilirubin 0.30 mg/dL N 0.2-1.0 Alkaline Phosphatase 46 U/L N 34-104 Alt 26 U/L N 7-52 Ast 21 U/L N 13-39 Egfr Non- 72.7 N >60 Egfr 93.5 N >60 19 Lipid Profile 11/19/2015 [facility] Triglycerides 452 mg/dL N 20 (Trig/Chol/HDL) [address] [place] [address] [phone] Cholesterol 190 mg/dL N 21 HDL Cholesterol 29.8 mg/dL N 22 LDL Cholesterol (SEE NOTE) mg/dL N 23 Lipid Profile (Trig/Chol/HDL) 10/08/2014 Triglycerides 381 mg/dL N 24 Cholesterol 185 mg/dL N 25 HDL Cholesterol 36.1 mg/dL N 26 LDL Cholesterol 73 mg/dL N 27 Comp Metabolic Panel 10/08/2014 Sodium 137 mmol/L N 133-145 Potassium 4.4 mmol/L N 3.5-5.0 Chloride 107 mmol/L N 101-111 Co2 Carbon Dioxide 24 mmol/L N 22-32 Anion Gap 6 mmol/L N 2-11 Glucose 102 mg/dL High 70-100 Blood Urea Nitrogen 19 mg/dL N 6-24 Creatinine 0.77 mg/dL N 0.51-0.95 BUN/Creatinine Ratio 24.7 High 8-20 Calcium 9.3 mg/dL N 8.6-10.3 Total Protein 7.1 g/dL N 6.4-8.9 Albumin 4.3 g/dL N 3.2-5.2 Globulin 2.8 g/dL N 2-4 Albumin/Globulin Ratio 1.5 N 1-3 Total Bilirubin 0.40 mg/dL N 0.2-1.0 Alkaline Phosphatase 44 U/L N 34-104 Alt 13 U/L N 7-52 Ast 17 U/L N 13-39 Egfr Non- 80.7 N >60 Egfr 103.8 N >60 28 Comp Metabolic Panel 03/18/2014 [facility] Sodium 135 mmol/L N 133-[address] [place] [address] [phone] Potassium 3.9 mmol/L N 3.5-5.0 Chloride 101 mmol/L N 101-111 Co2 Carbon Dioxide 29 mmol/L N 22-32 Anion Gap 5 mmol/L N 2-11 Glucose 99 mg/dL N 70-100 Blood Urea Nitrogen 18 mg/dL N 6-24 Creatinine 0.94 mg/dL N 0.51-0.95 BUN/Creatinine Ratio 19.1 N 8-20 Calcium 9.4 mg/dL N 8.6-10.3 Total Protein 7.5 g/dL N 6.4-8.9 Albumin 4.5 g/dL N 3.2-5.2 Globulin 3.0 g/dL N 2-4 Albumin/Globulin Ratio 1.5 N 1-3 Total Bilirubin 0.60 mg/dL N 0.2-1.0 Alkaline Phosphatase 44 U/L N 34-104 Alt 12 U/L N 7-52 Ast 17 U/L N 13-39 Egfr Non- 64.1 N >60 Egfr 82.4 N >60 29 Urinalysis Profile 03/18/2014 [facility] Urine Color Yellow N [address] [place] [address] [phone] Urine Appearance Clear N Urine Specific [place] 1.011 N 1.010-1.030 Urine pH 6.0 N 5-9 Urine Urobilinogen Negative N Negative Urine Ketones Negative N Negative Urine Protein Negative N Negative Urine Leukocytes Negative N Negative Urine Blood Negative N Negative Urine Nitrite Negative N Negative Urine Bilirubin Negative N Negative Urine Glucose Negative N Negative Laboratory test 03/18/2014 [facility] TSH (Thyroid 1.49 IU/mL N 0.34-5.[address] [place] [address] Horm) [phone] CBC Auto Diff 03/18/2014 [facility] White Blood 7.3 N 4.8- 10.[address] Count 10^3/uL [place], [place] [id number] [phone] Red Blood Count 4.70 10^6/uL N 4.0-5.4 Hemoglobin 14.6 g/dL N 12.0-16.0 Hematocrit 44 % N 35-47 Mean Corpuscular Volume 94 fL N 80-97 Mean Corpuscular Hemoglobin 31 pg N 27-31 Mean Corpuscular HGB Conc 33 g/dL N 31-36 Red Cell Distribution Width 13 % N 10.5-15 Platelet Count 264 10^3/uL N 150-450 Mean Platelet Volume 9 um3 N 7.4-10.4 Abs Neutrophils 4.8 10^3/uL N 1.5-7.7 Abs Lymphocytes 1.8 10^3/uL N 1.0-4.8 Abs Monocytes 0.5 10^3/uL N 0-0.8 Abs Eosinophils 0.2 10^3/uL N 0-0.6 Abs Basophils 0 10^3/uL N 0-0.2 Abs Nucleated RBC 0 10^3/uL N Granulocyte % 65.5 % N 38-83 Lymphocyte % 24.8 % Low 25-47 Monocyte % 7.0 % N 1-9 Eosinophil % 2.1 % N 0-6 Basophil % 0.6 % N 0-2 Nucleated Red Blood Cells % 0 N Lipid Profile 03/18/2014 [facility] Triglycerides 227 mg/dL N 30 (Trig/Chol/HDL) [address] [place] [address] [phone] Cholesterol 209 mg/dL N 31 HDL Cholesterol 30.0 mg/dL N 32 LDL Cholesterol 134 mg/dL N 33 1 Because ethnic data is not always readily [...] 15-29 5 Kidney failure <15 (or dialysis) 2 Troponin-I testing on Plasma Separator Tubes (PST) has a known false positive rate of 0.20-0.40%. All positive troponins reflex immediate secondary confirmatory testing. 3 <5.0 Negative 5.0 - 25.0 Indeterminate (Repeat testing recommended after 72 hours) >25.0 Positive Perimenopausal women can display HCG levels of up to 20 mIU/mL 4 SEE RESULT BELOW Name: ORIANA WILKINSON : [address]: Prerna Addison NP Acct: [id number] Unit: [id number] AGE: 47 Location: [facility] Re08/14/17 SEX: F Status: REG REF SPEC: [id number] OLIVIA: 08/14/17-10[address] [facility] DR: Prerna Addison NP REQ: [id number] RECD: 08/14/17 STATUS: COMP _ SOURCE: THROAT SPDESC: ORDERED: Throat Culture COMMENTS: [id number] Procedure Result Reported Site Throat Culture Final 08/16/17- 1019 ML Organism 1 NORMAL BEE Quantity 3+ Throat cultures are clinically indicated to detect the presence of group A strep, arcanobacterium and yeast. In certain cases, predominating organisms will be reported. * ML - Main Lab . END OF REPORT DEPARTMENT OF PATHOLOGY, [address] [place] [address] Talib García M.D. Director [facility] # [id number] 5 Because ethnic data is not always readily [...] 15-29 5 Kidney failure <15 (or dialysis) 6 Therapeutic target for the treatment of diabetes Mellitus patients is <7% HBA1C, and in selective patients <6.0%.Please refer to [place] [employer] Diabetic care guidelines for further information. 7 Unable to calculate due to low microalbumin 8 Comment: Tube 2 9 Comment: Tube 2 10 Comment: Tube 2 11 SEE RESULT BELOW Name: ORIANA WILKINSON : [address]: Rm Graham MD Acct: [id number] Unit: [id number] AGE: 45 Location: ED Re02/12/16 SEX: F Status: DEP ER SPEC: [id number] OLIVIA: 02/12/[address]: Rm Graham MD REQ: [id number] RECD: 02/12/16 STATUS: COMP KEESHA DR: Prerna Addison MEDICAL COLLECTIONS REPRESENTATIVE _ SOURCE: CSF SPDESC: ORDERED: CSF Cult/GS COMMENTS: Comment: Tube 3 Procedure Result Reported Site CSF Gram Stain Final 02/13/16- 0828 ML No Polys Observed No Organisms Seen Preparation By Cytospin Smear CSF Culture Final 02/16/16- 0852 ML No Growth Day 4 * ML - [facility] . END OF REPORT * ML=Testing performed at Main Lab DEPARTMENT OF PATHOLOGY, [address] [place] [address] Talib García M.D. Director [facility] # [id number] 12 Differential performed on concentrated smear. 13 No evidence of an acute inflammatory response. No evidence of malignancy. Reviewed by Irma Watters MD 14 Because ethnic data is not always [...] 5 Kidney failure <15 (or dialysis) 15 *Ascorbic acid is present which may interfere with detection of blood. 16 SEE RESULT BELOW Name: ORIANA WILKINSON : [address]: Rm Graham MD Acct: [id number] Unit: [id number] AGE: 45 Location: ED Re02/12/16 SEX: F Status: DEP ER SPEC: [id number] OLIVIA: 02/12/16-[address]: Rm Graham MD REQ: [id number] RECD: 02/12/16 STATUS: MARIAH THOA DR: Prerna Addison MEDICAL COLLECTIONS REPRESENTATIVE _ SOURCE: URINE SPDESC: ORDERED: Urine Culture Procedure Result Reported Site Urine Culture Final 02/14/16- 1210 ML No growth of clinically significant organisms * ML - [facility] . END OF REPORT * ML=Testing performed at Main Lab DEPARTMENT OF PATHOLOGY, [address] [place] [address] Talib García M.D. Director [facility] # [id number] 17 Edging Machine Feeder: [id number] CHAR COLBY 18 Therapeutic target for the treatment of diabetes Mellitus patients is <7% HBA1C, and in selective patients <6.0%.Please refer to [place] [employer] Diabetic care guidelines for further information. 19 Because ethnic data is not always [...] Low <40 Desirable: 40-60 High: >60 23 Unable to calculate LDL as triglyceride is > 400 24 Desirable <150 Borderline high 150-199 High 200-499 Very High >500 25 Desirable <200 Borderline high 200-239 High >239 26 Low <40 Desirable: 40-60 High: >60 27 Desirable: <100 mg/dL Near Optimal: 100-129 mg/dL Borderline High: 130-159 mg/dL High: 160-189 mg/dL Very High: >189 mg/dL 28 Because ethnic data is not always [...] 15-29 5 Kidney failure <15 (or dialysis) 29 Because ethnic data is not always readily [...] 15-29 5 Kidney failure <15 (or dialysis) 30 Desirable <150 Borderline high 150-199 High 200-499 Very High >500 31 Desirable <200 Borderline high 200-239 High >239 32 Low <40 Desirable: 40-60 High: >60 33 Desirable <100 Near Optimal 100-129 Borderline high 130-159 High 160-189 Very High >189 Procedures Date Code Description Status 01/25/2018 [id number] Mammogram Completed 06/23/2017 [id number] Mammogram Completed 05/12/2017 04494 EKG Tracing & Interpretation Completed 08/04/2016 [id number] Diabetic Retinal Eye Exam Completed 07/08/2016 [id number] Mammogram Completed 07/21/2015 68740 Carpal Tunnel Release Completed 07/21/2015 11003 Carpal Tunnel Release Completed 10/20/2014 [id number] Mammogram Completed 11/17/2011 39225 Rad Shoulder Comp, Min. 2 Views Completed Encounters Type Date Location Provider Dx Diagnosis Office Visit 08/14/2017 [facility] Internal Prerna Addison, I10 Essential (primary ) 10:00a Medicine - N.P. hypertension [place] J02.9 Acute pharyngitis, unspecified Z79.84 [facility] (current) use of oral hypoglycemic drugs E11.65 Type 2 diabetes mellitus with hyperglycemia Office Visit 05/16/2017 [facility] Internal Prerna Addison, J01.90 Acute sinusitis , 4:00p Medicine - N.P. unspecified [place] Office Visit 05/12/2017 [facility] Internal Prerna Addison, Z01.818 Encounter for other 3:00p Medicine - N.P. preprocedural [place] examination M25.562 Pain in left knee E11.9 Type 2 diabetes mellitus without complications I10 Essential (primary) hypertension Office Visit 04/14/2017 [facility] Internal Sanjana S83.92xA Sprain of 11:40a Ann Foster M.D. unspecified site [place] of left knee, initial encounter S83.92xA Sprain of unspecified site of left knee, initial encounter Office Visit 04/12/2017 [facility] Vanessa S60.022A Contusion of left 1:00p Services Of [place], RPA-C index finger w/o C.M.A. damage to nail, init Office Visit 04/07/2017 [facility] Prerna Addison, E11.9 Type 2 diabetes 10:40a Medicine - N.P. mellitus without [place] complications I10 Essential (primary) hypertension M79.645 Pain in left finger(s) R14.0 Abdominal distension (gaseous) Office Visit 12/08/2016 10:40a [facility] Internal Prerna Addison, I10 Essential ( primary) Medicine - N.P. hypertension [place] E11.9 Type 2 diabetes mellitus without complications Z23 Encounter for immunization Office Visit 06/08/2016 10:40a [facility] Internal Prerna Addison, Z00.01 Encounter for Medicine - N.P. general adult [place] medical exam w abnormal findings I10 Essential (primary) hypertension E11.9 Type 2 diabetes mellitus without complications F41.9 Anxiety disorder, unspecified Z12.31 Encntr screen mammogram for malignant neoplasm of breast K21.9 Gastro-esophageal reflux disease without esophagitis N92.4 Excessive bleeding in the premenopausal period Office Visit 03/30/2016 [facility] Internal Prerna Addison, H10.89 Other conjunctivitis 2:40p Medicine - N.P. [place] J06.9 Acute upper respiratory infection, unspecified R32 Unspecified urinary incontinence Office Visit 02/23/2016 1:00p [facility] Internal Prerna Addison, E11.9 Type 2 diabetes Medicine - N.P. mellitus without [place] complications I10 Essential (primary) hypertension J01.90 Acute sinusitis, unspecified K21.9 Gastro-esophageal reflux disease without esophagitis Office Visit 12/10/2015 8:40a [facility] Internal Prerna Addison, E11.9 Type 2 diabetes Medicine - N.P. mellitus without [place] complications Office Visit 11/12/2015 11:40a [facility] Internal Prerna Addison, Z23 Encounter for Medicine - N.P. immunization [place] I10 Essential (primary) hypertension K21.9 Gastro-esophageal reflux disease without esophagitis Office Visit 07/16/2015 9:45a Orthopedic Brittany [place], G56.02 Carpal tunnel Services Of M.D. syndrome, left C.M.A. upper limb G56.01 Carpal tunnel syndrome, right upper limb Office Visit 07/07/2015 2:20p [facility] Internal Prerna Addison, G56.01 Carpal tunnel Medicine - N.P. syndrome, right [place] upper limb G56.02 Carpal tunnel syndrome, left upper limb Z23 Encounter for immunization Office Visit 05/08/2015 1:40p [facility] Internal Prerna Addison, Z00.00 Encntr for Medicine - N.P. general adult [place] medical exam w/o abnormal findings I10 Essential (primary) hypertension E78.0 Pure hypercholesterolemia F41.9 Anxiety disorder, unspecified K21.9 Gastro-esophageal reflux disease without esophagitis Office Visit 02/25/2015 [facility] Internal Prerna Addison, J01.00 Acute maxillary 4:20p Medicine - N.P. sinusitis, [place] unspecified Office Visit 02/06/2015 [facility] Internal Marbin Segal, MEDICAL COLLECTIONS REPRESENTATIVE S83.92xA Sprain of 11:40a Medicine - unspecified site [place] of left knee, initial encounter Office Visit 12/12/2014 [facility] Internal Prerna Addison, Z23 Encounter for 10:00a Medicine - N.P. immunization [place] F17.210 Nicotine dependence, cigarettes, uncomplicated I10 Essential (primary) hypertension N39.41 Urge incontinence Office Visit 10/22/2014 10:00a [facility] Internal Prerna Addison, 788.31 Incontinence Urge Medicine - N.P. [place] 401.9 Hypertension Unspec 272.4 Hyperlipidemia Other Unspec 305.1 Tobacco Use Disorder 454.9 Varicose Veins Lower Extrem Asymptomatic Varicose Veins Office Visit 07/24/2014 Neurosurgery Hamzah 722.52 Intervertebral Disc 3:00p Services Of [facility] Gonzalez M.D. Degeneration Lumbar Office Visit 06/23/2014 Neurosurgery Hamzah 724.2 Lumbago 3:00p Services [facility] Gonzalez M.D. Office Visit 06/05/2014 Neurosurgery Hamzah 722.52 Intervertebral Disc 9:30a Services Of [facility]o Gonzalez M.D. Degeneration Lumbar Office Visit 05/08/2014 Neurosurgery Hamzah 722.52 Intervertebral Disc 9:30a Services Of [facility] Gonzalez M.D. 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 Internal Melchor Rendon, 401.9 Hypertension Unspec Medicine - M.D. [address] 272.4 Hyperlipidemia Other Unspec 300.00 Anxiety State Unspec 724.5 Backache Unspec V16.3 History Family Malignant Neoplasm Breast 305.1 Tobacco Use Disorder 278.00 Obesity Unspec 401.1 Hypertension Benign 724.2 Lumbago Office Visit 03/17/2014 3:00p [facility] Internal Melchor Rendon, 401.9 Hypertension Unspec Medicine - M.D. [place] 300.00 Anxiety State Unspec 724.5 Backache Unspec V16.3 History Family Malignant Neoplasm Breast 305.1 Tobacco Use Disorder 278.00 Obesity Unspec 401.1 Hypertension Benign 724.2 Lumbago Office Visit 10/15/2013 1:00p Orthopedic Sergio Isidro, 844.0 Sprains & Strains Services Of Jj Pino Knee Lateral Collateral Ligament 844.0 Sprains & Strains Knee Lateral Collateral Ligament Office Visit 07/05/2012 10:45a Orthopedic Sergio Isidro, 844.0 Sprains & Strains Services Of Jj Pino Knee Lateral Collateral Ligament Office Visit 06/14/2012 10:30a Orthopedic Lia Lewis 844.0 Sprains & Strains Services Of Jj RPA-C Knee Lateral Collateral Ligament Office Visit 05/22/2012 2:00p Orthopedic Sergio Isidro, 844.0 Sprains & Strains Services Of Jj Pino Knee Lateral Collateral Ligament Office Visit 01/04/2012 10:30a Juan Arcos 840.9 Sprains & Strains Services Of Jj Younger M.D. Shoulder & Upper Arm Unspec Office Visit 12/07/2011 11:30a Juan Arcos 840.9 Sprains & Strains Services Of Jj Younger M.D. Shoulder & Upper Arm Unspec Office Visit 11/17/2011 2:15p Juan Arcos 840.9 Sprains & Strains Services Of Jj Younger M.D. Shoulder & Upper Arm Unspec Plan of Treatment 04/11/2018 - Nash Scott M.D.I86.2 Pelvic varicesNew Medication:Prednisone 50 mg - take prednisone 50 mg by mouth 13, 7 and 1 hour before angiography with Dr. Scott for contrast allergy prophylaxisComments:The following was discussed with Oriana at the time of consultation:Based on her description after receiving IV contrast following her January 19, 2018 CT examination, Oriana appears to have a contrast allergy and she will therefore require a standard steroid regimen prophylaxis prior to angiographic procedures.The patient's clinical symptoms are fairly consistent with a diagnosis of pelvic congestion syndrome ( PCS) and correlates to the pathologically enlarged periuterine and ovarian vein seen on recent pelvic imaging. I discussed with Oriana the risks and benefits of pelvic varicose vein embolization. Specifically I discussed with her that the most difficult part of a PCS is clinically discerning which women are symptomatic from pathologically enlarged pelvic varicose veins and will therefore benefit from embolization. The risk always exists that a technically successful embolization will yield little to no clinical improvement.I also discussed with Oriana that other refluxing veins may become clinically symptomatic following embolization of large or more obvious veins and repeat venographyand embolization may be required in the future.
[2018-05-12 10:16] VITALS: BP 121/78
--- NOTE | 2018-05-12 10:44 | UC ---
Knee Pain HPI - HPI Summary HPI Summary: Patient presents to urgent care with complaints of left knee pain progressive over the last 2 days. Patient states she had a history of an ACL repair in [place] over year ago. Patient states she was doing well. Patient states this week she was doing strength training for her job at [employer]. Patient states she was on and off her knees. Patient was wearing a splint. Patient states she has had progressive pain in her knee since this time. Pain is mostly in the lateral superior aspect. Patient states it was red and swollen last night. Patient took Aleve last night. Patient this morning took Motrin. Patient states she's walking with a limp. Patient has any paresthesias. No leg weakness. No erythema today. Patient did not apply ice. No fall or direct trauma. Patient's medications reviewed this visit - History of Current Complaint Chief Complaint: UCLowerExtremity Stated Complaint: KNEE INJURY Time Seen by Provider: 05/12/18 10:21 Hx Obtained From: Patient Hx Last Menstrual Period: 09/20/17 Onset/Duration: Gradual Onset Severity Initially: Moderate Severity Currently: Moderate Pain Intensity: 7 Pain Scale Used: 0-10 Numeric Character: Stiffness Aggravating Factor(s): Movement, Weight Bearing, Prolonged Standing Alleviating Factor(s): Rest, OTC Meds - Allergies/Home Medications Allergies/Adverse Reactions: Allergies Allergy/AdvReac Type Severity Reaction Status Date / Time contrast dye Allergy Itching Uncoded 05/12/18 10:17 PMH/Surg Hx/FS Hx/Imm Hx Previously Healthy: Yes - Surgical History Surgical History: Yes Surgery Procedure, Year, and Place: Tubal Ligation 1999. LEFT KNEE SCOPING 2015. RIGHT CARPAL TUNNEL 2014. ACL RECONSTRUCTION LEFT KNEE 2018 - Family History Known Family History: Positive: Hypertension, Diabetes, Non-Contributory - Social History Occupation: Employed Full-time Lives: With Family Alcohol Use: Rare Alcohol Amount: 1 X EVERY 3-4 MONTHS Substance Use Type: None Smoking Status (MU): Never Smoked Tobacco Type: Cigarettes Amount Used/How Often: 1/2 PPD When Did the Patient Quit Smoking/Using Tobacco: 02/2015 Review of Systems All Other Systems Reviewed And Are Negative: Yes Skin: Positive: Other - Left knee pain Musculoskeletal: Positive: Other: Is Patient Immunocompromised?: No Physical Exam - Summary Physical Exam Summary: Vital Signs Reviewed: Yes A+Ox3, no distress Eyes: Conjunctiva Clear ENT: Hearing grossly normal neck: supple Respiratory: Positive: No respiratory distress, No accessory muscle use Cardiovascular: skin color reflect adequate perfusion 2+ DP, PT CBT < 2 sec Musculoskeletal Exam: + SLE + Flex/ext knee, ankle + TTP lateral joint line and superior ascpect patella. mild edema. no erythema. Neg anterior/posterior drawer no laxity lateral Neurological: Positive: Alert, ambulatory without difficulty + gross sensation throughout Psychological: Positive: Normal Response To Family Skin: Positive: no rash, no ecchymosis Triage Information Reviewed: Yes Vital Signs: Initial Vital Signs Temp 98.1 F 05/12/18 10:12 Pulse 87 05/12/18 10:12 Resp 18 05/12/18 10:12 BP 121/78 05/12/18 10:12 Pulse Ox 98 05/12/18 10:12 Diagnostics - Radiology No standard instances Radiology Interpretation Completed By: Radiologist - Patient Name: CARI WILKINSON Medical Record#: [id number] Ordering Physician: Johnathon MAE Acct.#: [id number] : 1970 Age: 48 Sex: F Location: [facility] Exam Date: 05/12/18 1017 ADM Status: REG ER Order Information: KNEE LEFT 4+ VWS Accession Number: [id number] CPT: 72362 HISTORY: Pain ., Lateral knee pain, left knee COMPARISONS: May 19, 2012 VIEWS: 4, Frontal, lateral, axial, and oblique views of the left knee FINDINGS: BONE DENSITY: Normal. BONES: There is postsurgical change to the distal femur and proximal tibia. There is no hardware failure or osteolysis. JOINTS: There is no arthropathy. ALIGNMENT: There is no dislocation. SOFT TISSUES: Unremarkable. OTHER FINDINGS: None. IMPRESSION: POST SURGICAL CHANGE. NO ACUTE OSSEOUS INJURY. IF SYMPTOMS PERSIST , RECOMMEND REPEAT IMAGING. <Electronically signed by Rodney Parham MD in OV> 05/12/18 1042 Dictated By: Rodney Parham MD Dictated Date/Time: 05/12/18 1042 Transcribed Date/Time: 05/12/18 1041 Copy to: CC:Sanjana Foster MD; Juliann Paz MD; Johnathon MAE Imaging - [facility] Imaging - [facility] Imaging - [facility] [address] [address] [place] [address] [place] [address] ph ) ph ([phone]) ph ([phone]) This report is only to be considered final once signed by the Provider(s) as displayed in the "< Electronically Signed by >" field (s). Absence of a signature indicates the report is in a draft status and still needs to be finalized. In the event this document was created by someone other than the signing Provider, the individual initiating the document will be listed in the "Entered by:" or "Dictated by:" lan. 1 of 1 Knee Pain Course/Dx - Course Course Of Treatment: Patient presents to urgent care with pain in her left lateral knee. Patient with a history of a similar. The same. This week patient was in training requiring her to get on and off of her knees for work. Patient states she notices swelling and increasing pain. Patient walking with a limp. Patient with pain lateral margin. Patient states last night it was red and swollen. Today to swollen. No fevers or chills. No open wounds. Patient's been wearing a splint with some mild improvement. Patient's states she is concerned that she reinjured the ACL. No direct trauma. On exam patient with pain on the lateral joint line as well as superior-lateral aspect of the patella. No crepitus. Distal CSM is intact. Imaging shows no acute fracture. We'll provide Matt.. Patient has crutches and pressure use him. Ice. Follow-up with her orthopedic and Haris or Dr. Younger she seen locally before. Patient given a copy of her discharge she was [place]. Patient also given a note for light duty. Patient states understanding agreement with plan. Patient states she has a little bit of popliteal fossa pain yesterday. Discussed with patient also the possibility of Duvall's cyst however no concern for this and today's exam. No calf pain. - Differential Dx/Diagnosis Provider Diagnosis: Left knee pain Discharge - Sign-Out/Discharge Documenting (check all that apply): Patient Departure All imaging exams completed and their final reports reviewed: Yes - Discharge Plan Condition: Stable Disposition: HOME Patient Education Materials: Knee Pain (ED) Forms: *Work Release Referrals: Sanjana Foster MD [Primary Care Provider] - Isrrael Younger MD [Medical Doctor] - Additional Instructions: -Okay to alternate ibuprofen (Advil, Motrin) 600mg and Tylenol every 3 hours for pain. Take with food. Do NOT take for more than 4-5 days - Use crutches until you can walk without pain or a limp - wear matt wrap for support -Apply ice (20 min at a time) every 4 hours while awake today and tomorrow - Keep leg elevated - this will help with swelling and pain -contact your orthopedic provider or Dr. Younger's office on Monday to arrange a follow-up appointment this week. Call your doctor or return with questions or concerns - Billing Disposition and Condition Condition: STABLE Disposition: Home
== END 2018-05-12 11:15 | disposition home or self-care (01) ==
LOC: UCEAST 10:07
DX: M25.562 Pain in left knee (principal); M25.462 Effusion, left knee; Z91.041 Radiographic dye allergy status; Z98.890 Other specified postprocedural states
CPT/HCPCS: 99212; G0463

== ENCOUNTER 2018-05-21 20:51 | Emergency (ER) | payer OTHER ==
--- NOTE | 2018-05-21 23:45 | ED ---
Lower Extremity - HPI Summary HPI Summary: Patient complains of persistent left knee pain status post injury 2 weeks ago. Patient was a work, kneeling and standing repeatedly during a training exercise and developed left knee pain. Patient went to urgent care that day, x-ray was negative. Portion was evaluated by or so on Monday 05/15 recommended ice, elevation and ibuprofen. Patient states she has been wearing a knee brace and continuing to work, but pain is progressive. Patient remains ambulatory, states pain with overuse of leg. Denies fever, cough, sore throat, CP, SOB, N/V /D, abdominal pain, change in urine, change in BM, swelling or erythema of left leg. Medical history is DM, HTN. Denies OCPs, history of blood clots, recent surgery or trauma, , history of cancer, recent immobility, long travel. - History of Current Complaint Chief Complaint: EDExtremityLower Stated Complaint: LEFT KNEE PAIN,SWOLLEN PER PT Time Seen by Provider: 05/21/18 21:35 Hx Obtained From: Patient Hx Last Menstrual Period: 09/20/17 Mechanism Of Injury: Other Onset of Pain: Immediate, Days Onset/Duration: Weeks Severity Initially: Mild Severity Currently: Severe Pain Intensity: 8 Pain Scale Used: 0-10 Numeric Timing: Intermittent, Lasting Minutes Location: Is Discrete @ Character Of Pain: Aching, Throbbing Associated Signs And Symptoms: Positive: Knee Pain Aggravating Factor(s): Standing, Ambulation, Movement Alleviating Factor(s): Rest, Ice, OTC Meds Able to Bear Weight: Yes - Allergies/Home Medications Allergies/Adverse Reactions: Allergies Allergy/AdvReac Type Severity Reaction Status Date / Time contrast dye Allergy Itching Uncoded 05/21/18 20:56 PMH/Surg Hx/FS Hx/Imm Hx Endocrine/Hematology History: Reports: Hx Diabetes - type 2 Denies: Hx Thyroid Disease Cardiovascular History: Reports: Hx Hypertension Denies: Hx Pacemaker/ICD Respiratory History: Denies: Hx Asthma, Hx Chronic Obstructive Pulmonary Disease (COPD) GI History: Reports: Hx Gastroesophageal Reflux Disease - WITH MOTRIN ONLY Denies: Hx Ulcer History: Reports: Other Problems/Disorders - Incontinence Denies: Hx Dialysis, Hx Renal Disease Musculoskeletal History: Reports: Hx Arthritis - BACK AND KNEES Sensory History: Reports: Hx Contacts or Glasses - READING Denies: Hx Hearing Aid Opthamlomology History: Reports: Hx Contacts or Glasses - READING Psychiatric History: Reports: Hx Anxiety Denies: Hx Panic Disorder - Cancer History Hx Chemotherapy: No Hx Radiation Therapy: No - Surgical History Surgery Procedure, Year, and Place: Tubal Ligation 1999. LEFT KNEE SCOPING 2016. RIGHT CARPAL TUNNEL 2015. ACL RECONSTRUCTION LEFT KNEE 2018 Hx Anesthesia Reactions: No Infectious Disease History: No Infectious Disease History: Denies: Hx Hepatitis, Hx Human Immunodeficiency Virus (HIV), Traveled Outside the [place] in Last 30 Days - Family History Known Family History: Positive: Hypertension, Diabetes, Non-Contributory - Social History Alcohol Use: Occasionally Alcohol Amount: 1 X EVERY 3-4 MONTHS Substance Use Type: Reports: None Hx Tobacco Use: Yes Smoking Status (MU): Former Smoker Type: Cigarettes Amount Used/How Often: 1/2 PPD Review of Systems Constitutional: Negative Eyes: Negative ENT: Negative Cardiovascular: Negative Respiratory: Negative Gastrointestinal: Negative Genitourinary: Negative Musculoskeletal: Other Skin: Negative Neurological: Negative Psychological: Normal All Other Systems Reviewed And Are Negative: Yes Physical Exam - Summary Physical Exam Summary: No swelling, ecchymosis, erythema, extra warmth, deformity noted to left knee. Full range of motion with pain. Nontender. No erythema or swelling to left calf. PMS intact distally. Patient ambulatory. Triage Information Reviewed: Yes Vital Signs On Initial Exam: Initial Vitals Temp Pulse Resp BP Pulse Ox 97.1 F 72 15 142/88 97 05/21/18 20:52 05/21/18 20:52 05/21/18 20:52 05/21/18 20:52 05/21/18 20:52 Vital Signs Reviewed: Yes Appearance: Positive: Well-Appearing Skin: Positive: Warm Head/Face: Positive: Normal Head/Face Inspection Eyes: Positive: Normal Neck: Positive: Supple Respiratory/Lung Sounds: Positive: Clear to Auscultation Cardiovascular: Positive: Normal Abdomen Description: Positive: Nontender Musculoskeletal: Positive: Normal Neurological: Positive: Normal Psychiatric: Positive: Normal AVPU Assessment: Alert - [place] Coma Scale Best Eye Response: 4 - Spontaneous Best Motor Response: 6 - Obeys Commands Best Verbal Response: 5 - Oriented Coma Scale Total: 15 Diagnostics - Vital Signs Vital Signs Temp Pulse Resp BP Pulse Ox 05/21/18 20:52 97.1 F 72 15 142/88 97 - Laboratory Lab Statement: Any lab studies that have been ordered have been reviewed, and results considered in the medical decision making process. Lower Extremity Course/Dx - Course Course Of Treatment: Patient complains of persistent left knee pain status post injury 2 weeks ago. Patient was a work, kneeling and standing repeatedly during a training exercise and developed left knee pain. Patient went to urgent care that day, x-ray was negative. Portion was evaluated by or so on Monday 05/15 recommended ice, elevation and ibuprofen. Patient states she has been wearing a knee brace and continuing to work, but pain is progressive. Patient remains ambulatory, states pain with overuse of leg. Denies fever, cough, sore throat, CP, SOB, N/V/D, abdominal pain, change in urine, change in BM, swelling or erythema of left leg. Medical history is DM, HTN. Denies OCPs , history of blood clots, recent surgery or trauma, , history of cancer , recent immobility, long travel. Physical exam:No swelling, ecchymosis, erythema, extra warmth, deformity noted to left knee. Full range of motion with pain. Nontender. No erythema or swelling to left calf. PMS intact distally. Patient ambulatory. Vital signs within normal limits. Physical exam unremarkable. Patient advised to follow-up with orthopedics for repeat evaluation and to continue ice, elevation, rest and ibuprofen. Work note for 2 days. Patient has crutches at home, has neoprene knee brace at home. - Diagnoses Provider Diagnoses: Knee pain Discharge - Sign-Out/Discharge Documenting (check all that apply): Patient Departure Patient Received Moderate/Deep Sedation with Procedure: No - Discharge Plan Condition: Stable Disposition: HOME Patient Education Materials: Knee Pain (ED) Forms: *Work Release Referrals: Sanjana Foster MD [Primary Care Provider] - Additional Instructions: Follow-up with your orthopedic doctor for repeat evaluation of left knee pain. Continue to ice, rest, and elevate knee and take ibuprofen as directed. Return to the ED for any new or worsening symptoms. - Billing Disposition and Condition Condition: STABLE Disposition: Home
[2018-05-22 00:01] VITALS: BP 120/89
== END 2018-05-22 | disposition home or self-care (01) ==
LOC: ED 20:51
DX: M25.562 Pain in left knee (principal); I10 Essential (primary) hypertension; E11.9 Type 2 diabetes mellitus without complications; Z87.891 Personal history of nicotine dependence
CPT/HCPCS: 99282

== ENCOUNTER 2018-06-11 23:54 | Day surgery (SDC) | payer BC ==
[2018-06-12] MEDS ORDERED: Ondansetron INJ* 2 MG/ML VIAL IV ONE (00:18)
[2018-06-12] MEDS ORDERED: Ketorolac INJ* 30 MG/ML 1 ML VIAL IV PUSH ONE (00:18)
--- NOTE | 2018-06-12 00:18 | ED ---
Abdominal Pain/Female - HPI Summary HPI Summary: A 48 y/o F presents to ED with c/o diffuse abd pain onset this evening. She went to bed around 2130 but was unable to fall asleep due to the pain. She states being at baseline during the day. She rates the pain as 10 out of 10. Associated sx: nausea. Denies v/d, urinary sx. She was recently diagnosed with congestive pelvic syndrome, but states today's pain is different, it's higher than her pelvic pain. No previous abd surgeries. [facility]: started today, it was late. - History of Current Complaint Chief Complaint: EDAbdPain Stated Complaint: ABD PAIN Time Seen by Provider: 06/12/18 00:10 Hx Obtained From: Patient Hx Last Menstrual Period: 09/20/17 Onset/Duration: Lasting Hours, Still Present Timing: Constant Severity Currently: Severe Pain Intensity: 10 Pain Scale Used: 0-10 Numeric Location: Umbilical Associated Signs and Symptoms: Positive: Nausea. Negative: Urinary Symptoms, Vomiting, Diarrhea Allergies/Adverse Reactions: Allergies Allergy/AdvReac Type Severity Reaction Status Date / Time Iodinated Contrast- Oral and Allergy Hives Verified 06/12/18 08:53 IV Dye PMH/Surg Hx/FS Hx/Imm Hx Previously Healthy: No Endocrine/Hematology History: Reports: Hx Diabetes - type 2 Denies: Hx Thyroid Disease Cardiovascular History: Reports: Hx Hypertension Denies: Hx Pacemaker/ICD Respiratory History: Denies: Hx Asthma, Hx Chronic Obstructive Pulmonary Disease (COPD) GI History: Reports: Hx Gastroesophageal Reflux Disease - WITH MOTRIN ONLY Denies: Hx Ulcer History: Reports: Other Problems/Disorders - Incontinence Denies: Hx Dialysis, Hx Renal Disease Musculoskeletal History: Reports: Hx Arthritis - BACK AND KNEES Sensory History: Reports: Hx Contacts or Glasses - READING Denies: Hx Hearing Aid Opthamlomology History: Reports: Hx Contacts or Glasses - READING Psychiatric History: Reports: Hx Anxiety Denies: Hx Panic Disorder - Cancer History Hx Chemotherapy: No Hx Radiation Therapy: No - Surgical History Surgery Procedure, Year, and Place: Tubal Ligation 1999. LEFT KNEE SCOPING 2016. RIGHT CARPAL TUNNEL 2015. ACL RECONSTRUCTION LEFT KNEE 2018 Hx Anesthesia Reactions: No Infectious Disease History: No Infectious Disease History: Denies: Hx Hepatitis, Hx Human Immunodeficiency Virus (HIV), Traveled Outside the [place] in Last 30 Days - Family History Known Family History: Positive: Hypertension, Diabetes, Non-Contributory - Social History Occupation: Employed Full-time Lives: With Family Alcohol Use: Occasionally Alcohol Amount: 1 X EVERY 3-4 MONTHS Hx Substance Use: No Substance Use Type: Reports: None Hx Tobacco Use: Yes Smoking Status (MU): Former Smoker Type: Cigarettes Amount Used/How Often: 1/2 PPD Review of Systems Negative: Fever Positive: Abdominal Pain, Nausea. Negative: Vomiting, Diarrhea Negative: dysuria, hematuria All Other Systems Reviewed And Are Negative: Yes Physical Exam - Summary Physical Exam Summary: Appearance: Well-appearing, Well-nourished, lying in bed comfortably, does not appear colicky Skin: Warm, dry, no obvious rash Eyes: sclera anicteric, no conjunctival pallor ENT: mucous membranes moist, pharynx appears normal Neck: Supple, nontender Respiratory: Clear to auscultation, no signs of respiratory distress Cardiovascular: Normal S1, S2. No murmurs. Normal distal pulses in tibial and radial bilaterally. Abdomen: Soft, obese, normal active bowel sounds present; There is bilateral upper abd tenderness without guarding nor rebound; no hernia. Lower abd is non- tender to palpation Musculoskeletal: Normal, Strength/ROM Intact Neurological: A&Ox3, awake and alert, mentation is normal, speech is fluent and appropriate Psychiatric: affect is normal, does not appear anxious or depressed Triage Information Reviewed: Yes Vital Signs On Initial Exam: Initial Vitals Temp Pulse Resp BP Pulse Ox 97.8 F 76 18 160/96 98 06/11/18 23:58 06/11/18 23:58 06/11/18 23:58 06/11/18 23:58 06/11/18 23:58 Vital Signs Reviewed: Yes Diagnostics - Vital Signs Vital Signs Temp Pulse Resp BP Pulse Ox 06/11/18 23:58 97.8 F 76 18 160/96 98 - Laboratory Result Diagrams: 06/12/18 00:55 06/12/18 00:55 Lab Statement: Any lab studies that have been ordered have been reviewed, and results considered in the medical decision making process. - CT A/P CT CT Interpretation Completed By: Radiologist Summary of CT Findings: IMPRESSION: 1. Abnormally dilated appendix with distention of the lumen would be somewhat. suspicious for acute appendicitis and clinical correlation is advised. 2. Left renal cyst. 3. Degenerative disc disease at L4-5-S1. 4. Fatty infiltration of the liver. 5. Hepatomegaly. ED provider has reviewed this report. Re-Evaluation - Re-Evaluation 1 Re-Evaluation Time: 01:59 Change: Unchanged Comment: Discussing results with pt. Pt still have severe abd pain, now into the RUQ. Will order CT. 2 Re-Evaluation Time: 05:13 Comment: Pt complaining of RLQ pain. On re-exam she does have focal RLQ tenderness with some guarding. Abdominal Pain Fem Course/Dx - Course Course Of Treatment: Pt is a 48 y/o F presents with diffuse abd pain, 10 out of 10, and nausea onset approx 2130 yesterday. No previous abd surgeries. [facility]: started today, it was late. Lab work is unremarkable except glucose: 168. A/P CT shows "1. Abnormally dilated appendix with distention of the lumen would be somewhat suspicious for acute appendicitis and clinical correlation is advised. 2. Left renal cyst. 3. Degenerative disc disease at L4-5-S1. 4. Fatty infiltration of the liver. 5. Hepatomegaly.". Consulted with Dr. Ca, surgery, who saw patient in ED. He will admit pt / take to OR. - Diagnoses Provider Diagnoses: Acute appendicitis - Provider Notifications Discussed Care Of Patient With: Omega Ca - surgery Time Discussed With Above Provider: 05:23 Instructed by Provider To: Will See In ED - 0648: Will admit / take to OR Discharge - Sign-Out/Discharge Documenting (check all that apply): Patient Departure - ADMIT / OR Patient Received Moderate/Deep Sedation with Procedure: No - Discharge Plan Condition: Good Disposition: ADMITTED TO [facility] - Billing Disposition and Condition Condition: GOOD Disposition: Admitted to [facility] - Attestation Statements Document Initiated by Scribe: Yes Documenting Scribe: Santiago Au Provider For Whom Stevie is Documenting (Include Credential): Dr. Compa Thorne MD Scribe Attestation: Santiago Bean, scribed for Dr. Compa Thorne MD on 06/12/18 at 1827. Scribe Documentation Reviewed: Yes Provider Attestation: The documentation as recorded by the Santiago ramos accurately reflects the service I personally performed and the decisions made by me, Dr. Compa Thorne MD Status of Scribe Document: Viewed
--- OUTSIDE RECORDS SUMMARY | 2018-06-12 00:27 | XMS REPORT | Continuity of Care Document ---
:1970 External Reference #:[id number] Author Name Ronnielatanya Lia Care Team Providers Name Role Phone Sanjana Foster MD Primary Care Physician Unavailable Payers Date Identification Numbers Payment Provider Subscriber Policy Number: [id number] [facility] Oriana Wilkinson PayID: [id number] [address] [place] [address] Onset: 2012 Policy Number: [id number] [facility] Insurance [facility] Oriana Wilkinson PayID: [id number] [address] [address] [place] [address] Onset: 2011 Policy Number: [id number] [facility] Oriana Wilkinson PayID: [place] [address] [address] [place] [address] Onset: 2016 PayID: [id number] Workers Compensation Oriana Wilkinson Effective: 2017 Policy Number: [facility] Oriana Wilkinson [id number] Onset: 2017 PayID: [place] [address] [place] [address] Advance Directives Description No Information Available Problems [...] Breast cancer (Age 48+/-) Just diagnosed with recurrence,doing well Age 68 Children 3 2 Sons 1 Daughter Siblings 3 2 Sisters - Healthy 1 Sister - HTN, DM breast cancer Age 45 Social History Type Date Description Comments Sex Unknown Marital Status Lives With Family Occupation [employer] ETOH Use Rarely consumes alcohol 1 - 2 per year Recreational Drug Use Denies Drug Use Tobacco Use Start: Unknown End: Patient is a former Quit February 2015 Unknown smoker Smoking Status Reviewed: 06/04/18 Patient is a former Quit February 2015 smoker Exercise Type/Frequency Exercises sporadically Allergies, Adverse Reactions, Alerts Date Description Reaction Status Severity Comments 04/17/2018 Iodine Active 04/17/2018 Iodine Hives, Itching Active 10/15/2013 NKDA Inactive Medications Medication Date Status Form Strength Qnty SIG Indications Ordering Provider Oxana 06/04 Active Solution 0.75mg/0. 2ml inject E11.65 Pen-Inject 5ML 0.5 Varn, N.P. millilite rs once weekly Prednisone 04/11 Active Tablets 50mg 6tabs take I86.2 Nash G. prednison Sonia, e 50 mg M.D. by mouth 13, 7 and 1 hour before angiograp hy with Dr. Scott for contrast allergy prophylax is (nottakin g) Medroxyprogestero 03/16 Active Tablets 10mg one Unknown tablet daily for the first 10 days of each month (not taking) Glipizide XL 05/12 Active Tablets ER 10mg 60tab 2 by E11. 24HR s mouth Varn, N.P. every in the morning Blood Glucose 04/07 Active Kit W/Device 1unit test E11.Prerna Monitoring System s blood Varn, N.P. sugars once fasting and 2 hours after dinner meal Blood Glucose 04/07 Active Strips 100un test E11.Prerna Test its blood Varn, N.P. sugar fasting in in the morning and 2 hours after dinner meal Lancet Device 04/07 Active Misc 100un use when E11. its testing Varn, N.P. blood gluose twice a day Omeprazole 02/[address] 20mg 30cap Take One K21.9 s Capsule Varn, N.P. By Mouth Every Day Fluticasone 07/06 Active Suspension 50mcg/Act 16uni Place 2 G56.01 ts Sprays In Varn, N.P. Each Nostril Daily as Needed Lisinopril Active Tablets 30mg 90tab Take 1 s Tablet By Varn, N.P. Mouth Daily Sertraline HCL Active Tablets 100mg 30tab Take 1 s Tablet By Varn, N.P. Mouth Every Day Amoxicillin/Clavu 05/16 Hx Tablets 875-125mg 20tab one J01.90 lanate s tablet by Varn, N.P. - mouth [...] - every 12 03/04 hours ten days Metformin HCL ER 12/09 Hx Tablets ER 500mg 180ta Take 2 E11.9 24HR bs Tablets Varn, N.P. - By Mouth 06/04 Every With Dinner. Patient states she currently is not taking this. (not taking) Tramadol 07/15 Hx Tablets 37.5-325m 30tab 1 -2 tabs Brittany Hydrochloride/Matt g s by mouth [place], taminophen - every 4-6 M.D. 08/18 hours needed pain Omeprazole 05/[address] 20mg 30cap 1 by K21.9 s mouth Varn, N.P. - every day 07/06 Amoxicillin/Clavu 02/25 Hx Tablets 875-125mg 20tab one J01.00 Prerna lanate s tablet by Varn, N.P. - mouth 03/07 twice daily for 10 days Fluconazole 02/25 Hx Tablets 150mg 3tabs one by J01.00 mouth Varn, N.P. - every 3 05/07 days 3 doses Fluticasone 02/25 Hx Suspension 50mcg/Act 16uni 2 sprays J01.00 Prerna Propionate ts each Varn, N.P. - nostril 03/11 daily needed Chantix 12/12 Hx Tablets 1mg 60tab 1 by Z00.00 s mouth Varn, N.P. - once a [...] Tablet By Varn, N.P. - Mouth 08/14 Cyclobenzaprine 06/23 Hx Tablets 10mg 45tab 1 by 724.2 Hamzah HCL s mouth Lisa, - twice a M.D. 07/19 day needed spasm B6 Natural 03/17 Hx Tablets 100mg Melchor Rendon, - M.D. 04/03 Fish Oil 03/17 Hx Capsules 1000mg Rendon, - M.D. 05/07 Naproxen 03/17 Hx Tablets 500mg 30tab 1 tablet 724.5 s by mouth Rendon, - twice a M.D. 05/08 day foods as needed pain Cyclobenzaprine 03/17 Hx Tablets 5mg 30tab 1 tablet 724.5 Melchor s by mouth Rendon, - three M.D. 05/08 times day as needed M15-Ugqcrg Hx Chewtabs 1mg 1 PO Unknown / Daily - 05/07 Tumeric Hx once a Unknown day - 11/11 Coq-10 Hx Capsules 150mg Unknown - 08/14 Biotin Hx Capsules 10mg Unknown - 08/14 Estroven + Energy Hx Tablets Unknown Maximumstrength /0000 - 08/14 Multivitamin Hx Chewtabs 2 by Unknown / mouth - every day 08/14 Immunizations CPT Code Status Date Vaccine Reaction Lot # 70207 Given 12/08/2016 Influenza Virus Vaccine, No immediate [id number] Quadrivalent, Split, reaction..jh Preservative Free 78683 Given 11/12/2015 Influenza Virus Vaccine, no reaction noted ... [id number] Quadrivalent, Split, Preservative Free 10222 Given 07/07/2015 Tdap - [id number] Tetanus/Diptheria/Acellular Pertussis 50444 Given 12/12/2014 Influenza Virus Vaccine, [id number] Quadrivalent, Split, Preservative Free Vital Signs Date Vital Result Comment 06/04/2018 2:36pm Height 68.5 inches 5'8.50" Weight 231.00 lb Heart Rate 95 /min BP Systolic 106 mmHg BP Diastolic 71 mmHg Body Temperature 99.6 F O2 % BldC Oximetry 96 % BMI (Body Mass Index) 34.6 kg/m2 04/11/2018 9:13am Height 69 inches 5'9" Weight [...] Date Facility Test Result H/L Range Note Laboratory test [employer] [facility] Hemoglobin A1c 11.5 High 5-7 finding 9 Urine [employer] [facility] Urine <pending> Microalbumin 9 Microalbumin Random Random CBC Auto Diff [facility] White Blood Count 5.7 N 3.5 -10.[address] 10^3/[place] [address] [phone] Red Blood Count 4.48 10^6/uL N 4.00-5.40 [...] Red Blood Cells % 0.1 Inr/Protime 01/19/2018 [facility] Inr 0.91 N 0.77-1.[address] [place] [phone] Laboratory test 01/19/2018 [facility] Partial 27.4 seconds N 26.0-36.[address] [place] [address] [place] [address] PTT [phone] Urinalysis 01/19/2018 [facility] Urine Color Straw Profile [address] [place] [address] [phone] Urine Appearance Clear Urine Specific Turin 1.012 N 1.010-1.030 Urine pH 5.0 N 5-9 Urine Urobilinogen Negative Negative Urine Ketones Negative Negative Urine Protein Negative Negative Urine Leukocytes Negative Negative Urine Blood Negative Negative Urine Nitrite Negative Negative Urine Bilirubin Negative Negative Urine Glucose 1+(50 mg/dL) Abnormal Negative Comp Metabolic Panel 01/19/2018 [facility] Sodium 133 mmol/L Low 135-[address] [place] [phone] Potassium 4.2 mmol/L N 3.5-5.0 Chloride 105 [...] 88.4 >60 1 Laboratory test finding 01/19/2018 [facility] Lipase 44 U/L N 11.0-82.[address] [place] [address] [phone] Troponin-I (TnI) 0.00 ng/mL <0.04 2 HCG < 0.60 mIU/mL 3 Laboratory test 08/14/2017 [facility] Culture Throat SEE RESULT [address] [place] [address] [phone] Laboratory test 08/14/2017 [employer] [facility] Rapid Group A <pending> finding Strep Laboratory test 08/14/2017 [employer] [facility] Hemoglobin A1c 7.8 High 5-7 finding CBC Auto Diff 05/20/2017 [facility] White Blood 6.9 10^3/uL N 3.5-[address] Count 0.8 [place] [address] [phone] Red Blood Count 4.16 10^6/uL N 4.0-5.4 [...] Red Blood Cells % 0 Pthi 05/15/2017 [facility] PTH Intact 5.6 pmol/L N 1.3-9.3 [address] [place] [address] [phone] Calcium (PTH Intact) 9.8 mg/dL N 8.6-10.3 Laboratory test 05/15/2017 [facility] Partial 30.4 seconds N 26.0-36.3 finding [address] [facility] [place] [address] PTT [phone] Urinalysis 05/15/2017 [facility] Urine Color Yellow Profile [address] [place] [address] [phone] Urine Appearance Clear Urine Specific Turin 1.017 N 1.010-1.030 Urine pH 5.0 N 5-9 Urine Urobilinogen Negative Negative Urine Ketones Negative Negative Urine Protein Negative Negative Urine Leukocytes Negative Negative Urine Blood Negative Negative Urine Nitrite Negative Negative Urine Bilirubin Negative Negative Urine Glucose 1+(50 mg/dL) Abnormal Negative Comp Metabolic Panel 05/15/2017 [facility] Sodium 132 mmol/L Low 133-145 [address] [place] [address] [phone] Potassium 5.0 mmol/L N 3.5-5.0 Chloride 98 [...] Egfr 89.0 >60 5 CBC Auto 05/15/2017 [facility] White Blood 12.5 10^3/uL High 3.5-10.[address] [place] [address] [phone] Red Blood Count 4.31 10^6/uL N 4.0-5.4 [...] Blood Cells % 0 Laboratory test 04/07/2017 [employer] [facility] Hemoglobin A1c 8.6 High 5-7 finding Laboratory test 12/08/2016 [facility] House Hemoglobin A1c 7.3 High 5-7 finding Laboratory test 06/15/2016 [facility] Hemoglobin A1c 7.2 % High Less than [address] (Glyco HGB) 6.0 [place] [address] [phone] Urine Microalbumin 06/15/2016 [facility] Urine Creatinine 138.01 N Random [address] mg/[place] [address] [phone] Ur Microalbumin (mg/L) < 15.0 mg/L N Urine Microalbumin/Creatinine TNP ug/mg N <31 7 CBC Auto Diff 06/15/2016 [facility] White Blood 6.0 10^3/uL N 3.5-10.[address] [place] [address] [phone] Red Blood Count 4.29 10^6/uL N 4.0-5.4 [...] Cells % 0.2 N Laboratory test 02/23/2016 [facility] In House Hemoglobin A1c 6.5 5-7 finding Laboratory test 02/12/2016 [facility] CSF Glucose 75 mg/dL High 40-70 8, [address] [place] [address] [phone] CSF Protein 39 mg/dL N 15-45 10 CSF Culture & 02/12/2016 [facility] CSF Culture SEE RESULT [address] [place] [address] [phone] CSF Cell Count 02/12/2016 [facility] Body Fluid Cerebral N [address] [place] [address] [phone] Body Fluid Appearance Clear N Body Fluid [...] NOTE) N 13 Comp Metabolic Panel 02/12/2016 [facility] Sodium 137 mmol/L N 133-[address] [place] [address] [phone] Potassium 4.3 mmol/L N 3.5-5.0 Chloride 102 [...] 87.4 N >60 14 CBC Auto 02/12/2016 [facility] White Blood 12.3 10^3/uL High 3.5-10.[address] [place] [address] [phone] Red Blood Count 4.04 10^6/uL N 4.0-5.4 [...] Cells % 0 N Urinalysis Profile 02/12/2016 [facility] Urine Color Yellow N [address] [place] [address] [phone] Urine Appearance Cloudy N Urine Specific Turin 1.026 N 1.010-1.030 Urine pH 7.0 N [...] Present Abnormal Absent Urine Culture And 02/12/2016 [facility] Urine Culture SEE RESULT [address] [place] [address] [phone] Laboratory test 02/12/2016 [facility] Point of Care 152 mg/dL High 74-106 [address] [place] [address] [phone] Laboratory test 12/07/2015 [facility] Hemoglobin A1c 7.0 % High Less [address] (Glyco HGB) [place] [address] [phone] Comp Metabolic 11/19/2015 [facility] Sodium 136 mmol/L N 133- [address] [place] [address] [phone] Potassium 4.4 mmol/L N 3.5-5.0 Chloride 105 [...] 93.5 N >60 19 Lipid Profile 11/19/2015 [facility] Triglycerides 452 mg/dL N 20 (Trig/Chol/HDL) [address] [place] [address] [phone] Cholesterol 190 mg/dL N 21 HDL Cholesterol [...] N >60 Egfr 103.8 N >60 28 Lipid Profile 03/18/2014 [facility] Triglycerides 227 mg/dL N 29 (Trig/Chol/HDL) [address] [place] [address] [phone] Cholesterol 209 mg/dL N 30 HDL Cholesterol 30.0 mg/dL N 31 LDL Cholesterol 134 mg/dL N 32 CBC Auto Diff 03/18/2014 [facility] White Blood 7.3 10^3/uL N 4.8-10.[address] [place] [address] [phone] Red Blood Count 4.70 10^6/uL N 4.0-5.4 [...] Nucleated Red Blood Cells % 0 N Laboratory test 03/18/2014 [facility] TSH (Thyroid 1.49 IU/mL N 0.34-5.[address] [place] [address] Horm) [phone] Urinalysis 03/18/2014 [facility] Urine Color Yellow N Profile [address] [place] [address] [phone] Urine Appearance Clear N Urine Specific Turin 1.011 N 1.010-1.030 Urine pH 6.0 N 5-9 Urine Urobilinogen Negative N Negative Urine Ketones Negative N Negative Urine Protein Negative N Negative Urine Leukocytes Negative N Negative Urine Blood Negative N Negative Urine Nitrite Negative N Negative Urine Bilirubin Negative N Negative Urine Glucose Negative N Negative Comp Metabolic Panel 03/18/2014 [facility] Sodium 135 mmol/L N 133-145 [address] [place] [address] [phone] Potassium 3.9 mmol/L N 3.5-5.0 Chloride 101 [...] 64.1 N >60 Egfr 82.4 N >60 33 1 Because ethnic data is not [...] [address]: Prerna Addison NP Acct: [id number] Unit: [id number] AGE: 47 Location: [facility] Re08/14/17 SEX: F Status: REG REF SPEC: [id number] OLIVIA: 08/14/17-[address] [facility] DR: Prerna Addison NP REQ: [id number] RECD: 08/14/17 STATUS: COMP _ SOURCE: THROAT SPDESC: ORDERED: Throat Culture COMMENTS: [id number] Procedure Result Reported Site Throat Culture Final 08/16/17- 1019 ML Organism 1 NORMAL BEE Quantity 3+ Throat cultures are clinically indicated to detect the presence of group A strep, arcanobacterium and yeast. In certain cases, predominating organisms will be reported. * ML - Main Lab . END OF REPORT DEPARTMENT OF PATHOLOGY, [address] [place] [address] Talib García M.D. Director [facility] # [id number] 5 Because ethnic data is not always [...] and in selective patients <6.0%.Please refer to [place] [employer] Diabetic care guidelines for further information. 7 Unable to calculate due to low microalbumin 8 Comment: Tube 2 9 Comment: Tube 2 10 Comment: Tube 2 11 SEE RESULT BELOW Name: ORIANA WILKINSON : [address]: Rm Graham MD Acct: [id number] Unit: [id number] AGE: 45 Location: ED Re02/12/16 SEX: F Status: DEP ER SPEC: [id number] OLIVIA: 02/12/[address]: Rm Graham MD REQ: [id number] RECD: 02/12/16 STATUS: MARIAH THAO DR: Prerna Addison SOCIAL WORK PROGRAM COORDINATOR _ SOURCE: CSF SPDESC: ORDERED: CSF Cult/GS COMMENTS: Comment: Tube 3 Procedure Result Reported Site CSF Gram Stain Final 02/13/16- 827 ML No Polys Observed No Organisms Seen Preparation By Cytospin Smear CSF Culture Final 02/16/16- 851 ML No Growth Day 4 * ML - MAIN LAB (PSC1) . END OF REPORT * ML=Testing performed at Main Lab DEPARTMENT OF PATHOLOGY, [address] [place] [address] Talib García M.D. Director [facility] # [id number] 12 Differential performed on concentrated smear. 13 [...] [address]: Rm Graham MD Acct: [id number] Unit: [id number] AGE: 45 Location: ED Re02/12/16 SEX: F Status: DEP ER SPEC: [id number] OLIVIA: 02/12/16-[address]: Rm Graham MD REQ: [id number] RECD: 02/12/16 STATUS: COMP [facility] DR: Prerna Addison SOCIAL WORK PROGRAM COORDINATOR _ SOURCE: URINE SPDESC: ORDERED: Urine Culture Procedure Result Reported Site Urine Culture Final 02/14/16- 1210 ML No growth of clinically significant organisms * ML - MAIN LAB (PSC1) . END OF REPORT * ML=Testing performed at Main Lab DEPARTMENT OF PATHOLOGY, [address] [place] [address] Talib García M.D. Director [facility] # [id number] 17 Rounding Machine Operator: [id number] CHAR COLBY 18 Therapeutic target for the treatment of diabetes Mellitus patients is <7% HBA1C, and in selective patients <6.0%.Please refer to [place] [employer] Diabetic care guidelines for further [...] 5 Kidney failure <15 (or dialysis) 29 Desirable <150 Borderline high 150-199 High 200-499 Very High >500 30 Desirable <200 Borderline high 200-239 High >239 31 Low <40 Desirable: 40-60 High: >60 32 Desirable <100 Near Optimal 100-129 Borderline high 130-159 High 160-189 Very High >189 33 Because ethnic data is not always readily [...] Kidney failure <15 (or dialysis) Procedures Date Code Description Status 01/25/2018 [id number] Mammogram Completed 06/23/2017 [id number] Mammogram Completed 05/12/2017 72323 EKG Tracing & Interpretation Completed 08/04/2016 [id number] Diabetic Retinal Eye Exam Completed 07/08/2016 [id number] Mammogram Completed 07/21/2015 66270 Carpal Tunnel Release Completed 07/21/2015 43986 Carpal Tunnel Release Completed 10/20/2014 [id number] Mammogram Completed 11/17/2011 68236 Rad Shoulder Comp, Min. 2 Views Completed Encounters Type Date Location Provider Dx Diagnosis Office Visit 04/11/2018 [facility] Nash Scott, I86.2 Pelvic varices 9:30a Medicine Of [facility] Office Visit 08/14/2017 [facility] Internal Prerna Addison, I10 Essential (primary ) 10:00a Medicine N.P. hypertension J02.9 Acute pharyngitis, unspecified Z79.84 residential (current) use of oral hypoglycemic drugs E11.65 Type 2 diabetes mellitus with hyperglycemia Office Visit 05/16/2017 4:00p [facility] Internal Prerna Addison, J01.90 Acute sinusitis, Medicine N.P. unspecified Office Visit 05/12/2017 3:00p [facility] Internal Prerna Addison, Z01.818 Encounter for other Medicine N.P. preprocedural examination M25.562 Pain in left knee E11.9 Type 2 diabetes mellitus without complications I10 Essential (primary) hypertension Office Visit 04/14/2017 11:40a [facility] Internal Sanjana S83.92xA Sprain of Medicine [place] Foster unspecified site of left knee, initial encounter S83.92xA Sprain of unspecified site of left knee, initial encounter Office Visit 04/12/2017 Orthopedic Vanessa S60.022A Contusion of left 1:00p [facility] [place], RPA-C index finger w/o C.M.A. damage to nail, init Office Visit 04/07/2017 [facility] Internal Prerna Addison, E11.9 Type 2 diabetes 10:40a Medicine N.P. mellitus without complications I10 Essential (primary) hypertension M79.645 Pain in left finger(s) R14.0 Abdominal distension (gaseous) Office Visit 12/08/2016 10:40a [facility] Internal Prerna Addison, I10 Essential ( primary) Medicine N.P. hypertension E11.9 Type 2 diabetes mellitus without complications Z23 Encounter for immunization Office Visit 06/08/2016 10:40a [facility] Internal Prerna Addison, Z00.01 Encounter for Medicine N.P. general adult medical exam w abnormal findings I10 Essential (primary) hypertension E11.9 Type 2 diabetes mellitus without complications F41.9 Anxiety disorder, unspecified Z12.31 Encntr screen mammogram for malignant neoplasm of breast K21.9 Gastro-esophageal reflux disease without esophagitis N92.4 Excessive bleeding in the premenopausal period Office Visit 03/30/2016 2:40p [facility] Internal Prerna Addison, H10.89 Other conjunctivitis Medicine N.P. J06.9 Acute upper respiratory infection, unspecified R32 Unspecified urinary incontinence Office Visit 02/23/2016 1:00p [facility] Internal Prerna Addison, E11.9 Type 2 diabetes Medicine N.P. mellitus without complications I10 Essential (primary) hypertension J01.90 Acute sinusitis, unspecified K21.9 Gastro-esophageal reflux disease without esophagitis Office Visit 12/10/2015 8:40a [facility] Internal Prerna Addison, E11.9 Type 2 diabetes Medicine N.P. mellitus without complications Office Visit 11/12/2015 11:40a [facility] Internal Prerna Addison, Z23 Encounter for Medicine N.P. immunization I10 Essential (primary) hypertension K21.9 Gastro-esophageal reflux disease without esophagitis Office Visit 07/16/2015 9:45a Orthopedic Brittany Hatfield, G56.02 Carpal tunnel Services Of [facility] syndrome, left C.M.A. upper limb G56.01 Carpal tunnel syndrome, right upper limb Office Visit 07/07/2015 2:20p [facility] Internal rPerna Addison, G56.01 Carpal tunnel Medicine N.P. syndrome, right upper limb G56.02 Carpal tunnel syndrome, left upper limb Z23 Encounter for immunization Office Visit 05/08/2015 1:40p [facility] Internal Prerna Addison, Z00.00 Encntr for Medicine N.P. general adult medical exam w/o abnormal findings I10 Essential (primary) hypertension E78.0 Pure hypercholesterolemia F41.9 Anxiety disorder, unspecified K21.9 Gastro-esophageal reflux disease without esophagitis Office Visit 02/25/2015 4:20p [facility] Internal Prerna Addison, J01.00 Acute maxillary Medicine N.P. sinusitis, unspecified Office Visit 02/06/2015 11:40a [facility] Internal Marbin Segal NP S83.92xA Sprain of Medicine unspecified site of left knee, initial encounter Office Visit 12/12/2014 10:00a [facility] Internal Prerna Addison, Z23 Encounter for Medicine N.P. immunization F17.210 Nicotine dependence, cigarettes, uncomplicated I10 Essential (primary) hypertension N39.41 Urge incontinence Office Visit 10/22/2014 10:00a [facility] Internal Prerna Addison, 788.31 Incontinence Urge Medicine N.P. 401.9 Hypertension Unspec 272.4 Hyperlipidemia Other Unspec [...] Lumbar W/O Myelopathy Office Visit 04/03/2014 8:40a [facility] Internal Melchor Rendon, 401.9 Hypertension Unspec Medicine - M.D. [address] 272.4 Hyperlipidemia Other Unspec 300.00 Anxiety State Unspec 724.5 Backache Unspec V16.3 History Family Malignant Neoplasm Breast 305.1 Tobacco Use Disorder 278.00 Obesity Unspec 401.1 Hypertension Benign 724.2 Lumbago Office Visit 03/17/2014 3:00p [facility] Internal Melchor Rendon, 401.9 Hypertension Unspec Medicine M.D. 300.00 Anxiety State Unspec 724.5 Backache Unspec V16.3 History Family Malignant Neoplasm Breast 305.1 Tobacco Use Disorder 278.00 Obesity Unspec 401.1 Hypertension Benign 724.2 Lumbago Office Visit 10/15/2013 1:00p Orthopedic Sergio Isidro 844.0 Sprains & Strains Services [facility] Knee Lateral Collateral Ligament 844.0 Sprains & Strains Knee Lateral Collateral Ligament Office Visit 07/05/2012 10:45a Juan Isidro 844.0 Sprains & Strains [facility] Knee Lateral Collateral Ligament Office Visit 06/14/2012 10:30a Orthopedic Lia Lewis 844.0 Sprains [facility] Strains [facility] Knee Lateral Collateral Ligament Office Visit 05/22/2012 2:00p Juan Isidro 844.0 Sprains [facility] Strains [facility] Knee Lateral Collateral Ligament Office Visit 01/04/2012 10:30a Juan Delatorre0.9 Sprains & Strains Services Of [facility] Younger M.D. Shoulder & Upper Arm Unspec Office Visit 12/07/2011 11:30a Juan Bautista.9 Sprains [facility] Strains [facility] Younger M.D. Shoulder & Upper Arm Unspec Office Visit 11/17/2011 2:15p Juan Bautista.9 Sprains & Strains Services Of [facility] Younger M.D. Shoulder & Upper Arm Unspec Plan of Treatment Future Appointment(s):06/18/2018 11:20 am - [facility]na Addison [facility] [facility] Internal Dwpkmuyy73/25/2019 12:00 pm - Nash Scott M.D. at [facility] Vascular Medicine [facility]06/04/2018 - Prerna Addison N.P.Z00.00 Encounter for general adult medical examination without abnoComments:For your routine health maintenance: I would encourage you to start a regular exercise program. You need to be getting between 1,000 - 1,200 mg of Calcium in daily. The best way to supplement what you get in your diet is to drink Calcium fortified orange juice. If you take a Calcium supplement be sureit has Vitamin D in it to help absorption. You are due for a screening colonoscopy. I will send a referral to the GI specialist.Their office will contact you to arrange an appointment. Your Tetanus immunization is up to date. You received this in 2016. It is good for 10 years unless you have a major injury, then it is good for 5 years.Referral: Héctor Hui MD, [id number] Type 2 diabetes mellitus with hyperglycemiaNew Medication:Trulicity 0.75 mg/0.5ML - inject 0.5 milliliters once weeklyComments:For your diabetes: You need to schedule an eye exam. I have given you a form for your eye professional to fill out. Please get this back to me so I may incorporate it into your chart. I am ordering a urine test to screen for protein and evaluate your kidney function. Your Hgb A1C is 11.5. I have prescribed Trulicity for you. You are to inject your abdomen once weekly.Follow up:DM F/U in 2 [id number] Essential (primary) hypertensionComments: For your high blood pressure: Continue with your current medication. I would like you to monitor your blood pressure at home. If your readings at home are consistently higher than 140/90, please call the office.F41.9 Anxiety disorder, unspecifiedComments:For your anxiety: Continue your current management. If you should at any time feel your symptoms arenot well controlled, please give the office a call.K21.9 Gastro-esophageal reflux disease without esophagitisComments :For your esophageal reflux: Continue with your current management. I advise you to avoid food triggers. These include: Spicy, greasy, and acidic foods, along with coffee and alcohol. If at any point you feel your symptoms are not well controlled, please contact the office.R92.8 Other abnormal and inconclusive findings on diagnostic imagiComments:I have ordered your annual routine mammogram. IF this is normal you will not need another for 1 year. The imaging department will review your results with you at the time of your visit.
[2018-06-12 01:12] LABS: ABS Basophils 0.1 10^3/ul (0-0.2); ABS Eosinophils 0.1 10^3/ul (0-0.6); ABS Lymphocytes 2.1 10^3/ul (1.0-4.8); ABS Monocytes 0.6 10^3/ul (0-0.8); ABS Neutrophils 5.8 10^3/ul (1.5-7.7); ABS Nucleated RBC 0 10^3/ul; Eosinophil % 1.3 %; Hematocrit 37 % (33-41); Hemoglobin 12.5 g/dL (12.0-16.0); Mean Corpuscular HGB Conc 33 g/dL (31-36); Mean Corpuscular Hemoglobin 28 pg (27-31); Mean Corpuscular Volume 84 fL (80-97); Mean Platelet Volume 8.2 fL (7.4-10.4); Nucleated Red Blood Cells % 0; Platelet Count 262 10^3/uL (150-450); Red Blood Count 4.45 10^6 /uL (3.70-4.87); Red Cell Distribution Width 15 % (10.5-15); White Blood Count 8.7 10^3/uL (3.5-10.8)
[2018-06-12 01:35] LABS: ALT 29 U/L (7-52); AST 25 U/L (13-39); Albumin/Globulin Ratio 1.3 (1-3); Alkaline Phosphatase 69 U/L (34-104); Anion Gap 8 mmol/L (2-11); BUN/Creatinine Ratio 19.8 (8-20); Blood Urea Nitrogen 18 mg/dL (6-24); C Reactive Protein 5.76 mg/L (<8.01); CO2 Carbon Dioxide 26 mmol/L (22-32); Calcium 9.3 mg/dL (8.6-10.3); Chloride 101 mmol/L (101-111); EGFR African American 79.2 (>60); EGFR Non-African American 65.4 (>60); Glucose 168 mg/dL (70-100); Potassium 3.7 mmol/L (3.5-5.0); Sodium 135 mmol/L (135-145)
[2018-06-12 01:41] LABS: HCG Pregnancy < 0.60 mIU/mL
[2018-06-12] MEDS ORDERED: Morphine 4 MG/ML VIAL (1 ml) 4 MG/ML VIAL IV ONE (02:16)
[2018-06-12] MEDS ORDERED: NS 0.9% 1000 ML** 2,000 ML IV ONE (05:24)
[2018-06-12] MEDS ORDERED: Piperacillin/Tazobac ADVAN(*) 3.375 GM in NS 0.9% 100 ML* 100 ML IVPB ONE (05:24)
[2018-06-12 05:57] LABS: Urine Appearance Cloudy; Urine Bacteria Absent (Absent); Urine Bilirubin Negative (Negative); Urine Blood 3+ (Negative); Urine Glucose Negative (Negative); Urine Ketones Negative (Negative); Urine Nitrite Negative (Negative); Urine Protein 2+(100 mg/dL) (Negative); Urine Red Blood Cell 3+(>10/hpf) (Absent); Urine Specific Gravity 1.017 (1.010-1.030); Urine Squamous Epithelial Cell Present (Absent); Urine Urobilinogen Negative (Negative); Urine White Blood Cell 1+(6-10/hpf) (Absent)
[2018-06-12 05:58] LABS: Urine Color Red
[2018-06-12] MEDS ORDERED: Ondansetron INJ* 2 MG/ML VIAL IV PRN ×2 (07:13→12:29)
[2018-06-12] MEDS ORDERED: Acetaminophen TAB* 325 MG PO PRN (07:13)
[2018-06-12] MEDS ORDERED: Morphine 4 MG/ML VIAL (1 ml) 4 MG/ML VIAL IV PRN (07:13)
[2018-06-12] MEDS ORDERED: NS 0.9% 1000 ML** 1,000 ML IV SCH (07:15)
--- NOTE | 2018-06-12 08:28 | HP ---
CC: [facility]; Prerna Addison NP * HISTORY AND PHYSICAL: DATE OF ADMISSION: 06/12/18 CHIEF COMPLAINT: Right lower quadrant abdominal pain. HISTORY OF PRESENT ILLNESS: Ms. Oriana Samuel is a 48-year-old woman, who has a history of non-insulin dependent diabetes, hypertension, obesity, and gastroesophageal reflux disease who developed some generalized upper abdominal discomfort last evening about the time she went to bed at 9:30. She had eaten a regular dinner without nausea, vomiting, or fever. She says the pain was quite severe in the upper abdomen and slowly become more localized in the right lower quadrant and she has been in the emergency room over the last several hours. She has had no complains of anorexia. She has had no diarrhea or change in bowel habits. She is having her menstrual period presently. She had no fevers , shakes, or chills. In the emergency room, she was noted to be afebrile with stable vital signs. She had a normal white blood cell count of 8700 without shift. Electrolytes, BUN, creatinine, and liver transaminases, bilirubin, as well as lipase were all unremarkable. Urinalysis did show some blood as well as 1+ leukocyte esterase. She states that she has had some lower pelvic pain and had been seeing Dr. Scott since the time she had an episode of pelvic discomfort in December 2017 where she underwent a CAT scan of the abdomen and pelvis. There was concern for pelvic congestion syndrome. That time her appendix was normal. Earlier this morning, she also underwent a noncontrasted CT scan due to allergy which I did review. This had an abnormality of dilated appendix to approximately 1 cm with distention of the lumen as well as thickening of the wall. There was no periappendiceal inflammation, extraluminal air, or abscess. There were no other acute findings on the CT scan. Her pain has persisted and has worsened since she presented to the emergency room and she has received morphine prior to me seeing her. PAST MEDICAL HISTORY: 1. Morbid obesity. 2. Non-insulin dependent diabetes. 3. Gastroesophageal reflux disease. 4. Pelvic congestion/discomfort. PAST SURGICAL HISTORY: 1. Laparoscopic tubal ligation. 2. ACL repair of the left knee. MEDICATIONS: Medicines include: 1. Trulicity 0.75 mg subcutaneous weekly, taken yesterday. 2. Sertraline 100 mg p.o. daily. 3. Omeprazole 20 mg daily. 4. Lisinopril 30 mg daily. 5. Flonase spray 2 sprays p.r.n. daily. ALLERGIES: She is allergic to IV CONTRAST DYE. SOCIAL HISTORY: She is . Lives with her . She is presently not working due to her left knee injury, but worked in the [employer] center in [place]. She does not use tobacco having quit smoking several years ago. She does not drink alcohol. She denies use of illicit drugs. REVIEW OF SYSTEMS: Cerebrovascular: No dizziness or visual disturbances. Cardiovascular: No chest pain, shortness of breath. Pulmonary: No wheezing or hemoptysis. GI: As per above. She has no diarrhea. She has no anorexia. : No urgency or hematuria. She is having her menstrual period presently. PHYSICAL EXAMINATION GENERAL: She is an overweight female, normal attention to grooming. She appears to be in no apparent distress and is pleasant and conversive. VITAL SIGNS: She is a afebrile. Pulse 63, blood pressure 94/49. HEENT: Her sclerae is anicteric. Oral mucosa is slightly dry. LUNGS: Clear to auscultation with normal respiratory effort. HEART: Regular rate and rhythm without murmurs, rubs, or gallops. ABDOMEN: Soft and nondistended. She has a well-healed laparoscopic incision at the umbilicus. There is no distention. She had normoactive bowel sounds throughout. She has some mild periumbilical tenderness. She has tenderness in the right lower quadrant with some voluntary guarding. There is no peritoneal irritation. There is no left lower quadrant or suprapubic discomfort. PSYCHIATRIC: He is awake, alert, and oriented x3. He has normal judgment and insight. IMPRESSION: Right lower quadrant abdominal pain. This started initially as upper generalized abdominal discomfort and it has become more localized in the right lower quadrant. It is somewhat more severe. Her laboratory workup is all completely unremarkable. Her CT scan was done without contract and compared to a study done in December, does show a dilated appendix with wall thickening without periappendiceal inflammation or findings suggestive of perforation. No other acute findings noted on the CT scan. With the clinical history as well as her physical exam in conjunction with her findings on the CT scan, I suspect that this may well represent early acute appendicitis and after reviewing all of this with her, I do recommend that she undergo a laparoscopic appendectomy today. I do not believe that her symptoms are typical of the pelvic congestion type syndrome that she has been having intermittently and has been seeing Dr. Scott for. This is less likely I believe a gastroenteritis or other nonsurgical etiology. After my discussion, recommendation is for laparoscopy today. She is in agreement and would like to proceed with the surgery. PLAN: 1. She will be admitted to the surgical stay unit. 2. She will be kept n.p.o. 3. She has already received a dose of IV Zosyn. 4. IV fluids will be started. 5. She will receive analgesia. 6. Laparoscopic appendectomy today. The procedure was discussed with the patient in detail, and the risks of, but not limited to, bleeding, infection, intraabdominal abscess formation, injury to peritoneal and retroperitoneal structures, possibility of an open procedure, risks of general anesthesia, blood clots, and pulmonary embolism were all explained. We discussed probable discharge later in the day depending on the timing of the operative schedule. Postoperative recovery time and activity restrictions were briefly discussed as well. In addition, I did inform to her that it may be another [facility] surgeon who is available to do the procedure and it may not be me and she is aware and comfortable with this. [id number]/[facility] #: [id number] TERRANCE
[2018-06-12] MEDS ORDERED: metroNIDAZOLE IV 500 MG/100ML* 500 MG/100 ML BAG IVPB ONE (10:21)
[2018-06-12] MEDS ORDERED: ceFAZolin 2 GM in NS PREMIX(*) 2 GM/100 ML BAG IVPB ONE (10:21)
[2018-06-12] MEDS ORDERED: Naloxone* 0.4 MG/ML 1 ML VIAL IV PRN (12:29)
[2018-06-12] MEDS ORDERED: fentaNYL* 50 MCG/ML 2 ML VIAL (100 MCG VIAL) IV PRN (12:29)
--- NOTE | 2018-06-12 12:56 | BRIEFOPN ---
Brief Operative Note - Surgery Procedures: Pre-OP Diagnoses: acute appendicitis Post-op Diagnosis: same Procedure: Laparoscopic appendectomy Surgeon: Susan Asst: none Anethesia: ANGELA EBL: minimal IVF: crystalloid Specimen: appendix Drains: none
[2018-06-12 14:18] VITALS: BP 109/65
--- NOTE | 2018-06-12 21:09 | OP ---
CC: Prerna Addison NP * DATE OF OPERATION: 06/12/18 - [facility] DATE OF : 66 SURGEON: Bart Davis MD. ACCOUNT DEVELOPMENT ASSOCIATE: None. ANESTHESIOLOGIST: Dr. Powers. ANESTHESIA: General endotracheal. PRE-OP DIAGNOSIS: Acute appendicitis. POST-OP DIAGNOSIS: Acute appendicitis. OPERATIVE PROCEDURE: Laparoscopic appendectomy. ESTIMATED BLOOD LOSS: Minimal. FLUIDS: Minimal crystalloid fluid given. SPECIMENS: Appendix. DRAINS: None. COUNTS: Lap pad count and instrument count correct at the end of the procedure. DESCRIPTION OF PROCEDURE: I met the patient in the preoperative area. I reviewed her case and discussed it with Dr. Ca. I agreed with the diagnosis of acute appendicitis after physical examination. I discussed with the patient the risks, benefits, and alternatives, and recommended laparoscopic appendectomy. The patient agreed to proceed in this fashion. I spoke of the possible complications which include, but not limited to, bleeding, infection, abscess formation, adjacent organ injury such as bladder or bowel, and the potential need for additional procedures. The patient signed consent, and she was marked and brought to the operating room and placed on the operating table in supine position. Sequential devices were placed on bilateral lower extremities. General anesthesia was induced. Preoperative antibiotics were given. The patient was prepped and draped in standard surgical fashion. A time-out was performed. An umbilical incision was made. The skin was elevated and a Veress needle inserted into the abdominal cavity, which was then allowed to insufflate to a pressure of 15 mmHg. The patient tolerated the insufflation well. An Optiview 12 port was then placed in the upper midline. This was a 12-mm port and this was placed without injury. The Veress needle was identified and removed, and there were no additional injuries from this. A 5-mm trocar was then placed in the umbilical incision site. The Veress needle was removed and another 5-mm in the suprapubic area. Table was repositioned. Adhesions to the right lower quadrant were identified from small bowel. These were taken down with sharp dissection easily removing a single loop from the anterior abdominal wall. This exposed the cecum and we quickly identified the appendix, which was dilated but not perforated. Both blunt and sharp dissection was carried out to free it from the lateral side wall. A window was made at the base of the appendix and a 30-mm marcum IAN stapling device was fired across healthy appendiceal tissue. The mesentery was taken with cautery and a clip recruiter manager at the artery. We had cauterized through the artery only to notice it bleeding afterwards. It was quickly grasped and a single 5-mm clip was placed across this and hemostasis was achieved. The appendix was then removed entirely, placed in an endoscopic retrieval bag and placed in the right upper quadrant. Review of the staple line and clip identified there was no bleeding at these sites. Review of the pelvis showed no other findings. The gauze that we had placed into the abdomen to clean up any additional bleeding was removed and then the appendix was removed through the upper midline incision in its endoscopic retrieval bag. The abdomen was allowed to collapse. Trocars were removed under direct vision, and all 3 skin incisions were reapproximated with 4 -0 Monocryl subcuticular sutures followed by Steri-Strips and sterile dressing. The patient tolerated the procedure well, was extubated and transferred to the PACU in stable condition for planned discharge home. [id number]/[facility] #: [id number] TERRANCE
== END 2018-06-12 11:10 | disposition home or self-care (01) ==
LOC: ED 23:54 → SSU 06-12 07:10 → UNDOADMOB 06-12 07:10 → OR 06-12 11:10
PROVIDERS: ATTEND Surgery
DX: K35.80 Unspecified acute appendicitis (principal); R10.31 Right lower quadrant pain; R11.0 Nausea; K76.0 Fatty (change of) liver, not elsewhere classified; N94.89 Other specified conditions associated with female genital organs and menstrual cycle; E11.9 Type 2 diabetes mellitus without complications
CPT/HCPCS: 36415; 74176; 80053; 81003; 81015; 83690; 84702; 85025; 86140; 87077; 87086; 87186; 88304; 99285; J0690; J1885; J2270; J2405; J2543; J3490

== ENCOUNTER → 2018-07-13 09:46 | Day surgery (SDC) | payer BC ==
[~2018-07-13 09:46] MED LIST: Bupivacaine 0.25% EPI 200,000* 30 ML SDV ONE; Cisatracurium* 2 MG/ML MDV 5 ML ONE; Dexamethasone IV* 4 MG/ML 1 ML (4 MG) ONE; EPHEDrine (Pressors)* 50 MG/ML VIAL ONE; Flumazenil* 0.1 MG/ML 5 ML MDV ONE; Glycopyrrolate IV* 0.2 MG/ML 1 ML VIAL ONE; Heparin 2 UNITS/ML IVPREMIX* 2,000 UNIT/1,000 ML BAG IV ONE; Iohexol 350 (CONTRAST) 200 ML MDV IV ONE; Ketorolac INJ* 30 MG/ML 1 ML VIAL ONE; LORazepam TAB(*) 1 MG ONE; Lidocaine 1% INJ* 10 MG/ML 30 ML SDV ONE; Lidocaine 2% PF * 5 ML VIAL ONE; Midazolam* 1 MG/ML 5 ML VIAL (5 MG) ONE; Naloxone* 0.4 MG/ML 1 ML VIAL ONE; Naproxen TAB* 250 MG ONE; Neostigmine Methylsulfate* 1 MG/ML 10 ML VIAL (1 mg/ml) ONE; Ondansetron INJ* 2 MG/ML VIAL ONE; Polidocanol 1% 20 MG/2 ML AMP IV ONE; Propofol* 10 MG/ML 20 ML BTL ONE; diPHENhydraMINE PO* 25 MG ONE; fentaNYL* 50 MCG/ML 2 ML VIAL (100 MCG VIAL) ONE
[2018-07-13 14:26] VITALS: BP 123/78
--- NOTE | 2018-07-13 15:12 | PN ---
Progress Note - Progress Note Date of Service: 07/13/18 SOAP: Subjective: No pain, no nausea. No SOB. + void s/p Noriega removal. Objective: Selected Entries 07/13/18 14:22 Heart Rate 85 Respiratory 19 Rate Blood Pressure 123/78 (mmHg) Blood Pressure 92 Mean O2 Sat by Pulse 95 Oximetry NAD, AAO x 3 R IJ venotomy site is soft, nontender Dressing is CDI Abdomen is soft, nontender Assessment: 48 YOF s/p pelvic venography and embolization of left pelvic varicosities and the left ovarian vein. Plan: 1. D/C to home. 2. Pain control, if necessary, can be achieved with OTC Ibuprofen or Naproxen. 3. IR nurse will call 07/17/18. 4. IR clinic visit in 4-6 weeks.
== END | disposition home or self-care (01) ==
LOC: CHICATH 09:46
PROVIDERS: ATTEND Radiology Diagnostic Radiology
DX: I86.2 Pelvic varices (principal); N94.89 Other specified conditions associated with female genital organs and menstrual cycle; Z87.891 Personal history of nicotine dependence; I10 Essential (primary) hypertension; K21.9 Gastro-esophageal reflux disease without esophagitis; E11.9 Type 2 diabetes mellitus without complications; F41.9 Anxiety disorder, unspecified; Z79.84 Long term (current) use of oral hypoglycemic drugs
CPT/HCPCS: 36415; 37241; 76937; 84702; 99156; 99157; A9270-GY; C1769; C1884; C1887; J1100; J1644; J1885; J2250; J2310; J2405; J2704; J2710; J3010